=== PATIENT | male | born 1955 | race American Indian/Alaskan Native ===

== ENCOUNTER 2017-03-17 20:08 | Inpatient (IN) | payer MEDICAID ==
[2017-03-17 21:33] LABS: Basophils % (Auto) 0.4 % (0.0-1.8); Eosinophils % (Auto) 0.2 % (0.0-4.3); Hematocrit 37.5 % (35.5-45.6); Hemoglobin 12.2 gm/dl (11.8-15.2); Mean Corpuscular HGB Conc 33 % (32-34); Mean Corpuscular Hemoglobin 26 pg (28-32); Mean Corpuscular Volume 81 fl (84-94); Platelet Count 185 K/mm3 (140-440); Red Blood Count 4.63 M/mm3 (3.65-5.03); Red Cell Distribution Width 14.6 % (13.2-15.2); White Blood Count 9.5 K/mm3 (4.5-11.0)
[2017-03-17] MEDS ORDERED: TYLENOL PO ONE (21:58)
--- NOTE | 2017-03-17 22:00 | Cat Scan Report ---
FINAL REPORT PROCEDURE: CT HEAD/BRAIN WO CON TECHNIQUE: Computerized tomography of the head was performed without contrast material. HISTORY: fall, head injury COMPARISON: No prior studies are available for comparison. FINDINGS: Skull and scalp: Normal. Paranasal sinuses: Normal. Ventricles and subarachnoid spaces: Moderate dilatation. Cerebrum: No evidence of hemorrhage, acute infarction or mass. Atrophy with periventricular and deep white matter diminished densities. Right parietal occipital infarct with encephalomalacia. Cerebellum and brainstem: No evidence of hemorrhage, acute infarction or mass. Atrophy. Vasculature: Normal. Comments: Chronic changes of the right orbit with deformity and calcification. IMPRESSION: Involutional change with atrophy and microangiopathy with right parietal occipital infarct. No hemorrhage
[2017-03-17 22:01] LABS: Creatine Kinase MB 4.6 ng/mL (0.0-4.0)
[2017-03-17 22:02] LABS: Chloride 98.1 mmol/L (98-107); Potassium 3.5 mmol/L (3.6-5.0)
--- NOTE | 2017-03-17 22:03 | Emergency Department Report ---
HPI - General Chief Complaint: Fall Time Seen by Provider: 03/17/17 21:11 - HPI HPI: [place] 25 The patient is a 61-year-old male presented with a chief complaint fall. The patient states this morning at 10:00 he was trying to pick something up off the floor and fell. Patient denies losing consciousness. The patient states he felt too weak diffusely to get up from the ground. Patient denies paresthesias of any type. Patient denies pain of any type. Patient denies shortness of breath, palpitations nausea or vomiting. Patient states his last tetanus vaccination occurred last year. The patient's only complaint currently is feeling "cold." Location: [See above] Duration: Since 10:00 Quality: Weakness Severity: Moderate Modifying factors: [see above] Context: [see above] Mode of transportation: [not driving] ED Past Medical Hx - Past Medical History Previous Medical History?: Yes Hx Hypertension: Yes Hx Diabetes: Yes Hx Pulmonary Embolism: Yes Hx Arthritis: Yes Additional medical history: corneal implant l) - Surgical History Past Surgical History?: Yes Hx Cholecystectomy: Yes Additional Surgical History: corneal implant l) eye, detached retina l) eye - Family History Family history: no significant - Social History Smoking Status: Never Smoker Substance Use Type: Prescribed - Medications Home Medications: Home Medications Medication Instructions Recorded Confirmed Last Taken Type Betoptic S 0.25% 1 drop OS BID 06/21/14 08/26/15 Unknown History Brimonidine Tartrate 0.2% 1 drop OS BID 06/21/14 08/26/15 Unknown History Cyclopentolate 1% 1 drop OS BID 06/21/14 08/26/15 Unknown History Gabapentin 300 mg PO TID 06/21/14 08/26/15 Unknown History Latanoprost 0.005% 1 drop OS DAILY 06/21/14 08/26/15 Unknown History Tobradex 1 drop OS DAILY 06/21/14 08/26/15 Unknown History Chlorthalidone [Thalitone] 25 mg PO QDAY 08/26/15 08/26/15 Unknown History Ergocalciferol [Vitamin D2] 1 cap PO QMONTH 08/26/15 08/26/15 Unknown History Torsemide [Demadex] 20 mg PO QID 08/26/15 08/26/15 Unknown History Aspirin EC [Aspirin Enteric Coated 81 mg PO QDAY #30 tablet. 08/30/15 Unknown Rx TAB] Insulin Glargine [Lantus VIAL] 30 units SUB-Q QHS units 08/30/15 Unknown Rx Insulin Glargine [Lantus VIAL] 70 units SUB-Q QHS #10 ml 08/30/15 Unknown Rx Insulin Glulisine [Apidra] 0 units SUB-Q AC units 08/30/15 Unknown Rx Labetalol [Normodyne TAB] 200 mg PO Q8HR #90 tablet 08/30/15 Unknown Rx Levofloxacin [Levaquin TAB] 500 mg PO Q24HR #5 tablet 08/30/15 Unknown Rx Meclizine [Antivert] 25 mg PO Q8H PRN #14 tablet 08/30/15 Unknown Rx NIFEdipine XL [Procardia Xl] 60 mg PO Q12HR #60 tablet 08/30/15 Unknown Rx Simvastatin [Zocor TAB] 10 mg PO QHS #30 tablet 08/30/15 Unknown Rx hydrALAZINE [Apresoline TAB] 150 mg PO TID #90 tab 08/30/15 Unknown Rx ED Review of Systems ROS: Stated complaint: RT EYE LACERATION Other details as noted in HPI Constitutional: weakness Eyes: denies: eye pain ENT: denies: throat pain Respiratory: denies: shortness of breath Cardiovascular: denies: chest pain Gastrointestinal: denies: abdominal pain, nausea, vomiting Genitourinary: denies: dysuria Musculoskeletal: denies: back pain Neurological: denies: headache Physical Exam - Physical Exam Vital Signs: Vital Signs 03/17/17 03/17/17 20:18 20:52 Temperature 102.0 F H Pulse Rate 105 H 82 Blood Pressure 188/71 Blood Pressure 182/76 [Left] O2 Sat by Pulse 92 Oximetry Physical Exam: GENERAL: The patient is well-developed well-nourished male lying on stretcher not appearing to be in acute distress. [] HEENT: Normocephalic. Abrasion to left forehead and mild abrasion underneath left thigh. Extraocular motions are intact. Subconjunctival hemorrhage of the left eye. Patient has moist mucous membranes. NECK: Supple. Trachea midline CHEST/LUNGS: Clear to auscultation. There is no respiratory distress noted. HEART/CARDIOVASCULAR: Regular. There is no tachycardia. There is no gallop rub or murmur. ABDOMEN: Abdomen is soft, nontender. Patient has normal bowel sounds. There is no abdominal distention. SKIN: There is no rash. There is no edema. There is no diaphoresis. NEURO: The patient is awake, alert, and oriented. The patient is cooperative. The patient has no focal neurologic deficits. The patient has normal speech. Cranial nerves II-12 grossly intact, systems project manager 5+/5 bilaterally. Moves all extremities well MUSCULOSKELETAL: There is no limitation range of motion. ED Course Vital Signs 03/17/17 03/17/17 20:18 20:52 Temperature 102.0 F H Pulse Rate 105 H 82 Blood Pressure 188/71 Blood Pressure 182/76 [Left] O2 Sat by Pulse 92 Oximetry ED Medical Decision Making - Lab Data Result diagrams: 03/17/17 21:17 03/17/17 21:17 - Radiology Data Radiology results: report reviewed (CT head, CT cervical spine), image reviewed (CT head, CT cervical spine, chest x-ray) interpreted by me: Chest x-ray-no focal infiltrate, no pneumothorax FINAL REPORT PROCEDURE: CT HEAD/BRAIN WO CON TECHNIQUE: Computerized tomography of the head was performed without contrast material. HISTORY: fall, head injury COMPARISON: No prior studies are available for comparison. FINDINGS: Skull and scalp: Normal. Paranasal sinuses: Normal. Ventricles and subarachnoid spaces: Moderate dilatation. Cerebrum: No evidence of hemorrhage, acute infarction or mass. Atrophy with periventricular and deep white matter diminished densities. Right parietal occipital infarct with encephalomalacia. Cerebellum and brainstem: No evidence of hemorrhage, acute infarction or mass. Atrophy. Vasculature: Normal. Comments: Chronic changes of the right orbit with deformity and calcification. IMPRESSION: Involutional change with atrophy and microangiopathy with right parietal occipital infarct. No hemorrhage Transcribed By: BRP Dictated By: EDINSON MALONEY MD Electronically Authenticated By: EDINSON MALONEY MD Signed Date/Time: 03/17/171756 DD/ 56 TD/TT: 03/17/171756 FINAL REPORT PROCEDURE: CT CERVICAL SPINE WO CON TECHNIQUE: Computerized tomography of the cervical spine was performed from the skull base to T1 without contrast material. HISTORY: fall, head injury COMPARISON: No prior studies are available for comparison. FINDINGS: Straightening of the cervical lordosis. Alignment is otherwise satisfactory. There is no fracture. The odontoid process is intact. C1-2: Mild spurring.. C2-3: No significant abnormality. C3-4: Disc bulge and spurring toward the right narrowing the right lateral recess. Uncovertebral spurring with right foraminal narrowing.. C4-5: Disc bulge and mild spurring.. C5-6: Disc space narrowing. Disc bulge and spurring. Uncovertebral spurring with bilateral foraminal narrowing.. C6-7: Disc space narrowing. Disc bulge and spurring. Uncovertebral spurring with left greater than right foraminal narrowing.. C7-T1: No significant abnormality. Other: No additional findings. IMPRESSION: Cervical spondylosis. No fracture.. Transcribed By: BRP Dictated By: EDINSON MALONEY MD Electronically Authenticated By: EDINSON MALONEY MD Signed Date/Time: 03/17/171801 DD/ 01 TD/TT: 03/17/171801 - Differential Diagnosis rhabdomyolysis, pneumonia, UTI, Critical care attestation.: If time is entered above; I have spent that time in minutes in the direct care of this critically ill patient, excluding procedure time. ED Disposition Clinical Impression: Rhabdomyolysis, Acute renal insufficiency, Fever Disposition: OP ADMIT IP TO THIS HOSP Is pt being admited?: Yes Does the pt Need Aspirin: No Condition: Fair Referrals: PRIMARY CARE, [Primary Care Provider] - 3-5 Days Time of Disposition: 23:26 (hospitalist notified (Dr Webb))
--- NOTE | 2017-03-17 22:06 | Cat Scan Report ---
FINAL REPORT PROCEDURE: CT CERVICAL SPINE WO CON TECHNIQUE: Computerized tomography of the cervical spine was performed from the skull base to T1 without contrast material. HISTORY: fall, head injury COMPARISON: No prior studies are available for comparison. FINDINGS: Straightening of the cervical lordosis. Alignment is otherwise satisfactory. There is no fracture. The odontoid process is intact. C1-2: Mild spurring.. C2-3: No significant abnormality. C3-4: Disc bulge and spurring toward the right narrowing the right lateral recess. Uncovertebral spurring with right foraminal narrowing.. C4-5: Disc bulge and mild spurring.. C5-6: Disc space narrowing. Disc bulge and spurring. Uncovertebral spurring with bilateral foraminal narrowing.. C6-7: Disc space narrowing. Disc bulge and spurring. Uncovertebral spurring with left greater than right foraminal narrowing.. C7-T1: No significant abnormality. Other: No additional findings. IMPRESSION: Cervical spondylosis. No fracture..
[2017-03-17] MEDS ORDERED: NACL 0.9% 1000 ML 1,000 ML IV ONE (22:10)
--- NOTE | 2017-03-17 22:54 | XRay Report ---
FINAL REPORT PROCEDURE: XR CHEST 1V AP TECHNIQUE: Chest radiograph anteroposterior view. CPT 28810 HISTORY: Fall. Injury. COMPARISON: No prior studies are available for comparison. FINDINGS: Heart: Normal. Mediastinum/Vessels: Normal. Lungs/Pleural space: Normal. Bony thorax: No acute osseous abnormality. Life support devices: None. IMPRESSION: No acute cardiopulmonary abnormality.
[2017-03-17] MEDS ORDERED: NACL 0.9% 1000 ML 1,000 ML IV SCH (23:45)
[2017-03-17] MEDS ORDERED: BRIMONIDINE TARTRATE 0.2% OS SCH (23:45)
--- NOTE | 2017-03-17 23:48 | History and Physical Report ---
History of Present Illness Date of examination: 03/17/17 Date of admission: 03/17/2017 Chief complaint: chief complaint: Fell on the floor around 10 AM and unable to get up. History of present illness: HPI The patient is a 61-year-old male presented with a chief complaint of fall. The patient states this morning at 10:00 he was trying to pick something up off the floor and fell. Patient denies losing consciousness. The patient states he felt too weak diffusely to get up from the ground. Patient denies paresthesias of any type. Patient denies pain of any type. Patient denies shortness of breath, palpitations nausea or vomiting. Patient states his last tetanus vaccination occurred last year. The patient's only complaint currently is feeling "cold." Past Medical History Previous Medical History?: Yes Hx Hypertension: Yes Hx Diabetes: Yes Hx Pulmonary Embolism: Yes Hx Arthritis: Yes Additional medical history: corneal implant l) Surgical History Past Surgical History?: Yes Hx Cholecystectomy: Yes Additional Surgical History: corneal implant l) eye, detached retina l) eye Family History Family history: hypertension Social History Smoking Status: Never Smoker Substance Use Type: Prescribed Medications Home Medications: Home Medications Medication Instructions Recorded Confirmed Last Taken Type Betoptic S 0.25% 1 drop OS BID 06/21/14 08/26/15 Unknown History Brimonidine Tartrate 0.2% 1 drop OS BID 06/21/14 08/26/15 Unknown History Cyclopentolate 1% 1 drop OS BID 06/21/14 08/26/15 Unknown History Gabapentin 300 mg PO TID 06/21/14 08/26/15 Unknown History Latanoprost 0.005% 1 drop OS DAILY 06/21/14 08/26/15 Unknown History Tobradex 1 drop OS DAILY 06/21/14 08/26/15 Unknown History Chlorthalidone [Thalitone] 25 mg PO QDAY 08/26/15 08/26/15 Unknown History Ergocalciferol [Vitamin D2] 1 cap PO QMONTH 08/26/15 08/26/15 Unknown History Torsemide [Demadex] 20 mg PO QID 08/26/15 08/26/15 Unknown History Aspirin EC [Aspirin Enteric Coated 81 mg PO QDAY #30 tablet. 08/30/15 Unknown Rx TAB] Insulin Glargine [Lantus VIAL] 30 units SUB-Q QHS units 08/30/15 Unknown Rx Insulin Glargine [Lantus VIAL] 70 units SUB-Q QHS #10 ml 08/30/15 Unknown Rx Insulin Glulisine [Apidra] 0 units SUB-Q AC units 08/30/15 Unknown Rx Labetalol [Normodyne TAB] 200 mg PO Q8HR #90 tablet 08/30/15 Unknown Rx Levofloxacin [Levaquin TAB] 500 mg PO Q24HR #5 tablet 08/30/15 Unknown Rx Meclizine [Antivert] 25 mg PO Q8H PRN #14 tablet 08/30/15 Unknown Rx NIFEdipine XL [Procardia Xl] 60 mg PO Q12HR #60 tablet 08/30/15 Unknown Rx Simvastatin [Zocor TAB] 10 mg PO QHS #30 tablet 08/30/15 Unknown Rx hydrALAZINE [Apresoline TAB] 150 mg PO TID #90 tab 08/30/15 Unknown Rx Review of Systems Stated complaint: RT EYE LACERATION Other details as noted in HPI Constitutional: weakness Eyes: denies: eye pain ENT: denies: throat pain Respiratory: denies: shortness of breath Cardiovascular: denies: chest pain Gastrointestinal: denies: abdominal pain, nausea, vomiting Genitourinary: denies: dysuria Musculoskeletal: denies: back pain Neurological: denies: headache Medications and Allergies Allergies Allergy/AdvReac Type Severity Reaction Status Date / Time No Known Allergies Allergy Verified 12/11/13 06:05 Home Medications Medication Instructions Recorded Confirmed Last Taken Type Betoptic S 0.25% 1 drop OS BID 06/21/14 03/18/17 Unknown History Brimonidine Tartrate 0.2% 1 drop OS BID 06/21/14 03/18/17 Unknown History Cyclopentolate 1% 1 drop OS BID 06/21/14 03/18/17 Unknown History Gabapentin 300 mg PO TID 06/21/14 03/18/17 Unknown History Latanoprost 0.005% 1 drop OS DAILY 06/21/14 03/18/17 Unknown History Tobradex 1 drop OS DAILY 06/21/14 03/18/17 Unknown History Chlorthalidone [Thalitone] 25 mg PO QDAY 08/26/15 03/18/17 Unknown History Ergocalciferol [Vitamin D2] 1 cap PO QMONTH 08/26/15 03/18/17 Unknown History Torsemide [Demadex] 20 mg PO QID 08/26/15 03/18/17 Unknown History Aspirin EC [Aspirin Enteric Coated 81 mg PO QDAY #30 tablet. 08/30/15 Unknown Rx TAB] Insulin Glargine [Lantus VIAL] 30 units SUB-Q QHS units 08/30/15 03/18/17 Unknown Rx Insulin Glargine [Lantus VIAL] 70 units SUB-Q QHS #10 ml 08/30/15 03/18/17 Unknown Rx Insulin Glulisine [Apidra] 0 units SUB-Q AC units 08/30/15 03/18/17 Unknown Rx Labetalol [Normodyne TAB] 200 mg PO Q8HR #90 tablet 08/30/15 03/18/17 Unknown Rx Levofloxacin [Levaquin TAB] 500 mg PO Q24HR #5 tablet 08/30/15 03/18/17 Unknown Rx Meclizine [Antivert] 25 mg PO Q8H PRN #14 tablet 08/30/15 03/18/17 Unknown Rx NIFEdipine XL [Procardia Xl] 60 mg PO Q12HR #60 tablet 08/30/15 03/18/17 Unknown Rx Simvastatin [Zocor TAB] 10 mg PO QHS #30 tablet 08/30/15 03/18/17 Unknown Rx hydrALAZINE [Apresoline TAB] 150 mg PO TID #90 tab 08/30/15 03/18/17 Unknown Rx Active Meds: Active Medications Sodium Chloride (Nacl 0.9% 1000 Ml) 1,000 mls @ 250 mls/hr IV ONCE ONE Stop: 03/18/17 02:09 Exam - Constitutional Vitals: Temp Pulse Resp BP Pulse Ox 102.0 F H 82 182/76 92 03/17/17 20:18 03/17/17 20:52 03/17/17 20:52 03/17/17 20:18 General appearance: Present: no acute distress, well-nourished - EENT Eyes: Present: PERRL ENT: hearing intact, clear oral mucosa - Neck Neck: Present: supple, normal ROM - Respiratory Respiratory effort: normal Respiratory: bilateral: CTA - Cardiovascular Heart rate: 80 Rhythm: regular Heart Sounds: Present: S1 & S2. Absent: rub, click - Extremities Extremities: no ischemia, pulses intact, pulses symmetrical, No edema Peripheral Pulses: within normal limits - Abdominal General gastrointestinal: Present: soft, non-tender, non-distended, normal bowel sounds Male genitourinary: Present: normal - Rectal Rectal Exam: deferred - Integumentary Integumentary: Present: clear, warm, dry - Musculoskeletal Musculoskeletal: gait normal, strength equal bilaterally - Psychiatric Psychiatric: appropriate mood/affect, intact judgment & insight - Neurologic Neurologic: CNII-XII intact, moves all extremities, other (power is about 4 over 5 in both lower extremities.) - Allied Health Allied health notes reviewed: nursing, case management Results - Labs CBC & Chem 7: 03/18/17 05:59 03/17/17 21:17 Labs: Laboratory Last Values WBC 9.5 K/mm3 (4.5-11.0) 03/17/17 21:17 RBC 4.63 M/mm3 (3.65-5.03) 03/17/17 21:17 Hgb 12.2 gm/dl (11.8-15.2) 03/17/17 21:17 Hct 37.5 % (35.5-45.6) 03/17/17 21:17 MCV 81 fl (84-94) L 03/17/17 21:17 MCH 26 pg (28-32) L 03/17/17 21:17 MCHC 33 % (32-34) 03/17/17 21:17 RDW 14.6 % (13.2-15.2) 03/17/17 21:17 Plt Count 185 K/mm3 (140-440) 03/17/17 21:17 Lymph % (Auto) 8.7 % (13.4-35.0) L 03/17/17 21:17 Tate % (Auto) 9.8 % (0.0-7.3) H 03/17/17 21:17 Eos % (Auto) 0.2 % (0.0-4.3) 03/17/17 21:17 Baso % (Auto) 0.4 % (0.0-1.8) 03/17/17 21: Lymph # 0.8 K/mm3 (1.2-5.4) L 03/17/17 21:17 Tate # 0.9 K/mm3 (0.0-0.8) H 03/17/17 21:17 Eos # 0.0 K/mm3 (0.0-0.4) 03/17/17 21:17 Baso # 0.0 K/mm3 (0.0-0.1) 03/17/17 21:17 Seg Neutrophils % 80.9 % (40.0-70.0) H 03/17/17 21:17 Seg Neutrophils # 7.7 K/mm3 (1.8-7.7) 03/17/17 21:17 Sodium 141 mmol/L (137-145) 03/17/17 21:17 Potassium 3.5 mmol/L (3.6-5.0) L 03/17/17 21:17 Chloride 98.1 mmol/L (98-107) 03/17/17 21:17 Carbon Dioxide 26 mmol/L (22-30) 03/17/17 21:17 Anion Gap 20 mmol/L 03/17/17 21:17 BUN 25 mg/dL (9-20) H 03/17/17 21:17 Creatinine 2.3 mg/dL (0.8-1.5) H 03/17/17 21:17 Estimated GFR 35 ml/min 03/17/17 21:17 BUN/Creatinine Ratio 11 % 03/17/17 21:17 Glucose 163 mg/dL (75-100) H 03/17/17 21:17 Calcium 9.0 mg/dL (8.4-10.2) 03/17/17 21:17 Total Creatine Kinase 1968 units/L (55-170) H 03/17/17 21:17 CK-MB (CK-2) 4.6 ng/mL (0.0-4.0) H 03/17/17 21:17 CK-MB (CK-2) Rel Index 0.2 (0-4) 03/17/17 21:17 Troponin T 0.020 ng/mL (0.00-0.029) 03/17/17 21:17 Short CBC 03/17/17 03/18/17 Range/Units 21:17 05:59 WBC 9.5 7.2 (4.5-11.0) K/mm3 Hgb 12.2 14.5 (11.8-15.2) gm/dl Hct 37.5 43.6 D (35.5-45.6) % Plt Count 185 140 (140-440) K/mm3 BMP 03/17/17 21:17 Sodium 141 Potassium 3.5 L Chloride 98.1 Carbon Dioxide 26 BUN 25 H Creatinine 2.3 H Glucose 163 H Calcium 9.0 Cardiac Enzymes 03/17/17 03/18/17 Range/Units 21:17 00:04 Total Creatine Kinase 1968 H 2563 H (55-170) units/L CK-MB (CK-2) 4.6 H 3.9 (0.0-4.0) ng/mL Troponin T 0.020 0.024 (0.00-0.029) ng/mL - Imaging and Cardiology EKG: report reviewed (EKG normal sinus rhythm heart rate of [address]-T wave changes prolonged QT interval) Assessment and Plan Advance Directives: Yes (full code) VTE prophylaxis?: Chemical Plan of care discussed with patient/family: Yes - Patient Problems (1) Syncope and collapse Current Visit: Yes Status: Acute Plan to address problem: patient not clear about passing out.workup initiated for syncope in the form of (2) Acute kidney injury Current Visit: Yes Status: Acute Plan to address problem: patient has a creatinine of 2.3. Acute tubular necrosis as a possibility. IV reviewed fluids for now.Nephrology consult if necessary. (3) Physical debility Current Visit: Yes Status: Acute Plan to address problem: Secondary to obesity. Patient unable to get up from floor. Patient needs physical therapy.Will initiate physical therapy but he will need physical therapy as outpatient. (4) Rhabdomyolysis Current Visit: Yes Status: Acute Qualifiers: Rhabdomyolysis type: non-traumatic Qualified Code(s): M62.82 - Rhabdomyolysis Plan to address problem: patient has CPK of around 2271-1938. Patient has been lying on the floor for 9 hours. IV fluids for rhabdomyolysis. (5) Morbid obesity Current Visit: Yes Status: Acute Plan to address problem: patient counseled about his obesity. Was unable to get up secondary to his obesity and weakness. Needs to get involved in physical therapy. Neurology consult requested even though I don't think a cerebrovascular accident happened. Power is about 4 over 5 in both lower extremities (6) DVT prophylaxis Current Visit: Yes Status: Acute Plan to address problem: patient initiated on Lovenox 30 mg subcutaneous daily.
[2017-03-17] MEDS ORDERED: ANTIVERT PO PRN (23:51)
[2017-03-17] MEDS ORDERED: TYLENOL PO PRN (23:55)
[2017-03-17] MEDS ORDERED: MILK OF MAGNESIA PO PRN (23:55)
[2017-03-17] MEDS ORDERED: DULCOLAX PR PRN (23:55)
[2017-03-17] MEDS ORDERED: ZOFRAN IV PRN (23:55)
[2017-03-17] MEDS ORDERED: MORPHINE IV PRN (23:57)
[2017-03-17] MEDS ORDERED: PERCOCET 5/325 PO PRN (23:57)
[2017-03-18 00:51] LABS: Creatine Kinase MB 3.9 ng/mL (0.0-4.0)
[2017-03-18] MEDS: CYCLOGYL OS SCH ×3 (02:29→21:45)
[2017-03-18] MEDS: DEMADEX PO SCH ×3 (02:29→21:41)
[2017-03-18] MEDS: BETOPTIC S OS SCH ×3 (02:29→21:45)
[2017-03-18] MEDS: HEPARIN SUB-Q SCH ×4 (02:31→21:44)
[2017-03-18] MEDS: PROCARDIA XL PO SCH ×3 (02:31→21:43)
[2017-03-18] MEDS ORDERED: HEPARIN ONE (02:47)
[2017-03-18 06:32] LABS: Hematocrit 43.6 % (35.5-45.6); Hemoglobin 14.5 gm/dl (11.8-15.2); Mean Corpuscular HGB Conc 33 % (32-34); Mean Corpuscular Hemoglobin 27 pg (28-32); Mean Corpuscular Volume 81 fl (84-94); Platelet Count 140 K/mm3 (140-440); Red Blood Count 5.37 M/mm3 (3.65-5.03); Red Cell Distribution Width 15.3 % (13.2-15.2); White Blood Count 7.2 K/mm3 (4.5-11.0)
[2017-03-18 07:00] LABS: Creatine Kinase MB 3.7 ng/mL (0.0-4.0)
[2017-03-18 07:01] LABS: Albumin 3.6 g/dL (3.9-5); Albumin/Globulin Ratio 1.2 %; Bilirubin,Total 0.3 mg/dL (0.1-1.2); Calcium 8.7 mg/dL (8.4-10.2); Chloride 102.7 mmol/L (98-107); Total Protein 6.7 g/dL (6.3-8.2)
[2017-03-18 07:18] LABS: Potassium 3.9 mmol/L (3.6-5.0)
[2017-03-18] MEDS: NORMODYNE PO SCH ×3 (07:36→21:43)
[2017-03-18] MEDS ORDERED: NACL 0.9% 1000 ML 1,000 ML IV SCH (08:00)
[2017-03-18 08:24] LABS: Basophils % (Manual) 0 % (0.0-1.8); Blastocytes % (Manual) 0 %
[2017-03-18 08:25] LABS: Anisocytosis Few; Diff Status Complete
[2017-03-18] MEDS: NOVOLOG SUB-Q SCH ×4 (09:59→22:52)
[2017-03-18] MEDS: APRESOLINE PO SCH ×3 (10:00→21:42)
[2017-03-18] MEDS: NEURONTIN PO SCH ×3 (10:00→21:41)
[2017-03-18] MEDS: XALATAN 0.005% OS SCH (10:01)
[2017-03-18] MEDS: TOBRADEX OS SCH (10:02)
[2017-03-18] MEDS: THALITONE PO SCH (11:30)
[2017-03-18] MEDS ORDERED: PNEUMOVAX 23 IM ONE (12:00)
[2017-03-18 12:57] LABS: Creatine Kinase MB 2.7 ng/mL (0.0-4.0)
--- NOTE | 2017-03-18 16:44 | Progress Note ---
Assessment and Plan Assessment and plan: (1) Syncope and collapse - CT head normal - Carotid Doppler evidence of present stenosis - Stress test is pending (2) Acute on chronic kidney injury - Due to ATN - Patient is on IV fluids (3) Physical debility - PT consulted (4) Rhabdomyolysis - Continue IV fluids (5) Morbid obesity - Counseled about weight loss (6) DVT prophylaxis patient initiated on Lovenox 30 mg subcutaneous daily. Disposition continue inpatient care History Interval history: Patient was seen and evaluated this morning, no new complaints, no family member was in the room. Hospitalist Physical - Physical exam Narrative exam: Not in cardiopulmonary distress. The patient appeared well nourished and normally developed. Vital signs as documented. Head exam is unremarkable. No scleral icterus . Neck is without jugular venous distension, thyromegaly, or carotid bruits. Lungs are clear to auscultation. Cardiac exam reveals regular rate and Rhythm. First and second heart sounds normal. No murmurs, rubs or gallops. Abdominal exam reveals normal bowel sounds, no masses, no organomegaly and no aortic enlargement. Extremities are nonedematous and both femoral and pedal pulses are normal. BAR STEWARD: Alert and oriented 3. No focal weakness. - Constitutional Vitals: Temp Pulse Resp BP Pulse Ox 99.6 F 80 20 166/70 98 03/18/17 13:23 03/18/17 13:23 03/18/17 13:23 03/18/17 13:23 03/18/17 09:06 General appearance: Present: no acute distress, well-nourished Results - Labs CBC & Chem 7: 03/18/17 05:59 03/18/17 05:59 Labs: Laboratory Last Values WBC 7.2 K/mm3 (4.5-11.0) 03/18/17 05:59 RBC 5.37 M/mm3 (3.65-5.03) H 03/18/17 05:59 Hgb 14.5 gm/dl (11.8-15.2) 03/18/17 05:59 Hct 43.6 % (35.5-45.6) D 03/18/17 05:59 MCV 81 fl (84-94) L 03/18/17 05:59 MCH 27 pg (28-32) L 03/18/17 05:59 MCHC 33 % (32-34) 03/18/17 05:59 RDW 15.3 % (13.2-15.2) H 03/18/17 05:59 Plt Count 140 K/mm3 (140-440) 03/18/17 05:59 Lymph % (Auto) 8.7 % (13.4-35.0) L 03/17/17 21:17 [place] % (Auto) 9.8 % (0.0-7.3) H 03/17/17 21:17 Eos % (Auto) 0.2 % (0.0-4.3) 03/17/17 21:17 Baso % (Auto) 0.4 % (0.0-1.8) 03/17/17 21:17 Lymph # 0.8 K/mm3 (1.2-5.4) L 03/17/17 21:17 [place] # 0.9 K/mm3 (0.0-0.8) H 03/17/17 21:17 Eos # 0.0 K/mm3 (0.0-0.4) 03/17/17 21:17 Baso # 0.0 K/mm3 (0.0-0.1) 03/17/17 21:17 Add Manual Diff Complete 03/18/17 05:59 Total Counted 100 03/18/17 05:59 Seg Neutrophils % 80.9 % (40.0-70.0) H 03/17/17 21:17 Seg Neuts % (Manual) 82.0 % (40.0-70.0) H 03/18/17 05:59 Band Neutrophils % 1.0 % 03/18/17 05:59 Lymphocytes % (Manual) 13.0 % (13.4-35.0) L 03/18/17 05:59 Reactive Lymphs % (Man) 0 % 03/18/17 05:59 Monocytes % (Manual) 2.0 % (0.0-7.3) 03/18/17 05:59 Eosinophils % (Manual) 2.0 % (0.0-4.3) 03/18/17 05:59 Basophils % (Manual) 0 % (0.0-1.8) 03/18/17 05:59 Metamyelocytes % 0 % 03/18/17 05:59 Myelocytes % 0 % 03/18/17 05:59 Promyelocytes % 0 % 03/18/17 05:59 Blast Cells % 0 % 03/18/17 05:59 Nucleated RBC % Not Reportable 03/18/17 05:59 Seg Neutrophils # 7.7 K/mm3 (1.8-7.7) 03/17/17 21:17 Seg Neutrophils # Man 5.9 K/mm3 (1.8-7.7) 03/18/17 05:59 Band Neutrophils # 0.1 K/mm3 03/18/17 05:59 Lymphocytes # (Manual) 0.9 K/mm3 (1.2-5.4) L 03/18/17 05:59 Abs React Lymphs (Man) 0.0 K/mm3 03/18/17 05:59 Monocytes # (Manual) 0.1 K/mm3 (0.0-0.8) 03/18/17 05:59 Eosinophils # (Manual) 0.1 K/mm3 (0.0-0.4) 03/18/17 05:59 Basophils # (Manual) 0.0 K/mm3 (0.0-0.1) 03/18/17 05:59 Metamyelocytes # 0.0 K/mm3 03/18/17 05:59 Myelocytes # 0.0 K/mm3 03/18/17 05:59 Promyelocytes # 0.0 K/mm3 03/18/17 05:59 Blast Cells # 0.0 K/mm3 03/18/17 05:59 WBC Morphology Not Reportable 03/18/17 05:59 Hypersegmented Neuts Not Reportable 03/18/17 05:59 Hyposegmented Neuts Not Reportable 03/18/17 05:59 Hypogranular Neuts Not Reportable 03/18/17 05:59 Smudge Cells Not Reportable 03/18/17 05:59 Toxic Granulation Not Reportable 03/18/17 05:59 Toxic Vacuolation Not Reportable 03/18/17 05:59 Dohle Bodies Not Reportable 03/18/17 05:59 Pelger-Huet Anomaly Not Reportable 03/18/17 05:59 Manoj Rods Not Reportable 03/18/17 05:59 Platelet Estimate Not Reportable 03/18/17 05:59 Clumped Platelets Not Reportable 03/18/17 05:59 Plt Clumps, EDTA Not Reportable 03/18/17 05:59 Large Platelets Not Reportable 03/18/17 05:59 Giant Platelets Not Reportable 03/18/17 05:59 Platelet Satelliting Not Reportable 03/18/17 05:59 Plt Morphology Comment Not Reportable 03/18/17 05:59 RBC Morphology Not Reportable 03/18/17 05:59 Dimorphic RBCs Not Reportable 03/18/17 05:59 Polychromasia Not Reportable 03/18/17 05:59 Hypochromasia Not Reportable 03/18/17 05:59 Poikilocytosis Not Reportable 03/18/17 05:59 Anisocytosis Few 03/18/17 05:59 Microcytosis Not Reportable 03/18/17 05:59 Macrocytosis Not Reportable 03/18/17 05:59 Spherocytes Not Reportable 03/18/17 05:59 Pappenheimer Bodies Not Reportable 03/18/17 05:59 Sickle Cells Not Reportable 03/18/17 05:59 Target Cells Not Reportable 03/18/17 05:59 Tear Drop Cells Not Reportable 03/18/17 05:59 Ovalocytes Not Reportable 03/18/17 05:59 Helmet Cells Not Reportable 03/18/17 05:59 Beltrán-Ringgold Bodies Not Reportable 03/18/17 05:59 Laporte Rings Not Reportable 03/18/17 05:59 Marisol Cells Not Reportable 03/18/17 05:59 Bite Cells Not Reportable 03/18/17 05:59 Crenated Cell Not Reportable 03/18/17 05:59 Elliptocytes Not Reportable 03/18/17 05:59 Acanthocytes (Spur) Not Reportable 03/18/17 05:59 Rouleaux Not Reportable 03/18/17 05:59 Hemoglobin C Crystals Not Reportable 03/18/17 05:59 Schistocytes Not Reportable 03/18/17 05:59 Malaria parasites Not Reportable 03/18/17 05:59 William Bodies Not Reportable 03/18/17 05:59 Hem Pathologist Commnt No 03/18/17 05:59 Sodium 143 mmol/L (137-145) 03/18/17 05:59 Potassium 3.9 mmol/L (3.6-5.0) 03/18/17 05:59 Chloride 102.7 mmol/L (98-107) 03/18/17 05:59 Carbon Dioxide 23 mmol/L (22-30) 03/18/17 05:59 Anion Gap 21 mmol/L 03/18/17 05:59 BUN 22 mg/dL (9-20) H 03/18/17 05:59 Creatinine 2.2 mg/dL (0.8-1.5) H 03/18/17 05:59 Estimated GFR 37 ml/min 03/18/17 05:59 BUN/Creatinine Ratio 10 % 03/18/17 05:59 Glucose 155 mg/dL (75-100) H 03/18/17 05:59 Hemoglobin A1c 7.9 % (4-6) H 03/18/17 00:04 Calcium 8.7 mg/dL (8.4-10.2) 03/18/17 05:59 Total Bilirubin 0.30 mg/dL (0.1-1.2) 03/18/17 05:59 AST 58 units/L (5-40) H 03/18/17 05:59 ALT 20 units/L (7-56) 03/18/17 05:59 Alkaline Phosphatase 68 units/L (35-129) 03/18/17 05:59 Total Creatine Kinase 2655 units/L (55-170) H 03/18/17 12:06 CK-MB (CK-2) 2.7 ng/mL (0.0-4.0) 03/18/17 12:06 CK-MB (CK-2) Rel Index 0.1 (0-4) 03/18/17 12:06 Troponin T 0.020 ng/mL (0.00-0.029) 03/18/17 12:06 Total Protein 6.7 g/dL (6.3-8.2) 03/18/17 05:59 Albumin 3.6 g/dL (3.9-5) L 03/18/17 05:59 Albumin/Globulin Ratio 1.2 % 03/18/17 05:59 Creatinine is 2.2
--- NOTE | 2017-03-18 18:13 | Consultation ---
History of Present Illness Consult date: 03/18/17 Requesting physician: RIVER NARAYAN Reason for Consult: Fell, unable to get up due to weakness. 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 The patient has been ambulating with a walker for weakness and balance for several years before the stroke. He has never been unable to get up from the floor before this according to his . He denies passing out. He denies pain in lower extremities, including muscles. A CT scan of the sandor reveals the previous CVA, no new findings. CPK however is in excess of 1000, and creatinine is rising above 2. it is estimated that he may have been down fro 9 hours or so. also mentions that his memory has been poor of late. Past History Past Medical History: diabetes, stroke Social history: . denies: smoking, alcohol abuse Medications and Allergies Allergies Allergy/AdvReac Type Severity Reaction Status Date / Time No Known Allergies Allergy Verified 12/11/13 06:05 Home Medications Medication Instructions Recorded Confirmed Last Taken Type Betoptic S 0.25% 1 drop OS BID 06/21/14 03/18/17 Unknown History Brimonidine Tartrate 0.2% 1 drop OS BID 06/21/14 03/18/17 Unknown History Cyclopentolate 1% 1 drop OS BID 06/21/14 03/18/17 Unknown History Gabapentin 300 mg PO TID 06/21/14 03/18/17 Unknown History Latanoprost 0.005% 1 drop OS DAILY 06/21/14 03/18/17 Unknown History Tobradex 1 drop OS DAILY 06/21/14 03/18/17 Unknown History Chlorthalidone [Thalitone] 25 mg PO QDAY 08/26/15 03/18/17 Unknown History Ergocalciferol [Vitamin D2] 1 cap PO QMONTH 08/26/15 03/18/17 Unknown History Torsemide [Demadex] 20 mg PO QID 08/26/15 03/18/17 Unknown History Aspirin EC [Aspirin Enteric Coated 81 mg PO QDAY #30 tablet. 08/30/15 Unknown Rx TAB] Insulin Glargine [Lantus VIAL] 30 units SUB-Q QHS units 08/30/15 03/18/17 Unknown Rx Insulin Glargine [Lantus VIAL] 70 units SUB-Q QHS #10 ml 08/30/15 03/18/17 Unknown Rx Insulin Glulisine [Apidra] 0 units SUB-Q AC units 08/30/15 03/18/17 Unknown Rx Labetalol [Normodyne TAB] 200 mg PO Q8HR #90 tablet 08/30/15 03/18/17 Unknown Rx Levofloxacin [Levaquin TAB] 500 mg PO Q24HR #5 tablet 08/30/15 03/18/17 Unknown Rx Meclizine [Antivert] 25 mg PO Q8H PRN #14 tablet 08/30/15 03/18/17 Unknown Rx NIFEdipine XL [Procardia Xl] 60 mg PO Q12HR #60 tablet 08/30/15 03/18/17 Unknown Rx Simvastatin [Zocor TAB] 10 mg PO QHS #30 tablet 08/30/15 03/18/17 Unknown Rx hydrALAZINE [Apresoline TAB] 150 mg PO TID #90 tab 08/30/15 03/18/17 Unknown Rx Active Meds: Active Medications Acetaminophen (Tylenol) 650 mg PO Q4H PRN PRN Reason: Pain MILD(1-3)/Fever >100.5/[place] Betaxolol HCl (Betoptic S) 1 drops OS BID [facility] Last Admin: 03/18/17 11:30 Dose: Not Given Bisacodyl (Dulcolax) 10 mg [place] QDAY PRN PRN Reason: Constipation unrelieved by MOM Chlorthalidone (Thalitone) 25 mg PO QDAY [facility] Last Admin: 03/18/17 11:30 Dose: Not Given Cyclopentolate HCl (Cyclogyl) 1 drops OS BID [facility] Last Admin: 03/18/17 11:30 Dose: Not Given Gabapentin (Neurontin) 300 mg PO TID [facility] Last Admin: 03/18/17 15:09 Dose: 300 mg Heparin Sodium (Porcine) (Heparin) 5,000 unit SUB-Q Q12HR [facility] Last Admin: 03/18/17 10:02 Dose: 5,000 unit Hydralazine HCl (Apresoline) 150 mg PO TID [facility] Last Admin: 03/18/17 15:08 Dose: 150 mg Sodium Chloride (Nacl 0.9% 1000 Ml) 1,000 mls @ 100 mls/hr IV DIRECT [facility] Insulin Aspart (Novolog) 0 units SUB-Q ACHS [facility] PRN Reason: Protocol Last Admin: 03/18/17 12:05 Dose: Not Given Labetalol HCl (Normodyne) 200 mg PO Q8HR [facility] Last Admin: 03/18/17 15:09 Dose: 200 mg Latanoprost (Xalatan 0.005%) 1 drops OS DAILY [facility] Last Admin: 03/18/17 10:01 Dose: 1 drops Magnesium Hydroxide (Milk Of Magnesia) 30 ml PO Q4H PRN PRN Reason: Constipation Meclizine HCl (Antivert) 25 mg PO Q8H PRN PRN Reason: Vertigo Miscellaneous Medication (Brimonidine Tartrate 0.2%) 1 drop OS BID [facility] Last Admin: 03/18/17 02:29 Dose: Not Given Miscellaneous Medication (Insulin Glargine) 70 units SUB-Q QHS [facility] Miscellaneous Medication (Insulin Glargine) 30 units SUB-Q QHS [facility] Morphine Sulfate (Morphine) 4 mg IV Q4H PRN PRN Reason: Pain , Severe (7-10) Nifedipine (Procardia Xl) 60 mg PO Q12HR [facility] Last Admin: 03/18/17 09:59 Dose: 60 mg Ondansetron HCl (Zofran) 4 mg IV Q8H PRN PRN Reason: N/V unrelieved by Reglan Oxycodone/Acetaminophen (Percocet 5/325) 1 tab PO Q6H PRN PRN Reason: Pain, Moderate (4-6) Pravastatin Sodium (Pravachol) 20 mg PO QHS [facility] Tobramycin/Dexamethasone (Tobradex) 1 drops OS DAILY [facility] Last Admin: 03/18/17 10:02 Dose: 1 drops Torsemide (Demadex) 20 mg PO BID [facility] Last Admin: 03/18/17 09:59 Dose: 20 mg Review of Systems Constitutional: weakness Ears, nose, mouth and throat: no tinnitis, no decreased hearing, no sore throat , no headache, no vertigo Cardiovascular: no chest pain, no orthopnea, no palpitations, no edema, no syncope Respiratory: no cough, no shortness of breath, no congestion Gastrointestinal: constipation, no abdominal pain, no nausea, no vomiting, no diarrhea Genitourinary Male: urinary frequency, no dysuria, no incontinence Rectal: no pain, no incontinence Musculoskeletal: no neck stiffness, no neck pain, no low back pain, no muscle cramps, no myalgias Neurological: weakness, memory loss, balance difficulties, gait dysfunction, no head injury, no parathesias, no numbness, no tingling, no seizures, no syncope, no headaches Psychiatric: memory loss Physical Examination - Vital Signs Vital Signs: Vital Signs Temp Pulse BP Pulse Ox 102.0 F H 105 H 188/71 92 03/17/17 20:18 03/17/17 20:18 03/17/17 20:18 03/17/17 20:18 - Constitutional General appearance: comfortable - EENT EENT: Present: PERRL, mucous membranes moist, hearing intact - Respiratory Respiratory: Present: lungs clear, normal breath sounds - Cardiovascular Cardiovascular: Present: regular rate, normal S1, normal S2 Extremities: Present: no peripheral edema bilatateraly, chronic venous stasis change - Gastrointestinal Gastrointestinal: Present: soft, non-tender - Neurologic Cranial nerve examination: EOMI, V1/V2/V3 grossly intact, face symmetric, tongue midline, intact shoulder shrug Speech examination: intact Sensorimotor examination: intact, other (symmetric stength and sensory) Motor examination - right side: 2/5: hip flexors, knee extensors, dorsiflexion, toe extension (EHL), plantarflexion, 4/5: biceps, triceps, wrist flexion, wrist extension Motor examination - left side: 2/5: hip flexors, knee extensors, dorsiflexion, toe extension (EHL), plantarflexion, 4/5: biceps, triceps, wrist flexion, wrist extension Detailed sensory examination: light touch, pain Reflexes: 0: ankle, bicep, knee, tricep - Musculoskeletal Musculoskeletal: Present: no pain - Psychiatric Psychiatric: Present: cooperative Results - Laboratory Findings CBC and BMP: 03/18/17 05:59 03/18/17 05:59 Abnormal Lab Findings: Abnormal Labs 03/17/17 03/17/17 03/18/17 21:17 21:17 00:04 RBC MCV 81 L MCH 26 L RDW Lymph % (Auto) 8.7 L [place] % (Auto) 9.8 H Lymph # 0.8 L [place] # 0.9 H Seg Neutrophils % 80.9 H Seg Neuts % (Manual) Lymphocytes % (Manual) Lymphocytes # (Manual) Potassium 3.5 L BUN 25 H Creatinine 2.3 H Glucose 163 H Hemoglobin A1c 7.9 H AST Total Creatine Kinase 1968 H CK-MB (CK-2) 4.6 H Albumin 03/18/17 03/18/17 03/18/17 00:04 05:59 05:59 RBC 5.37 H MCV 81 L MCH 27 L RDW 15.3 H Lymph % (Auto) [place] % (Auto) Lymph # [place] # Seg Neutrophils % Seg Neuts % (Manual) 82.0 H Lymphocytes % (Manual) 13.0 L Lymphocytes # (Manual) 0.9 L Potassium BUN Creatinine Glucose Hemoglobin A1c AST Total Creatine Kinase 2563 H 2962 H CK-MB (CK-2) Albumin 03/18/17 03/18/17 05:59 12:06 RBC MCV MCH RDW Lymph % (Auto) [place] % (Auto) Lymph # [place] # Seg Neutrophils % Seg Neuts % (Manual) Lymphocytes % (Manual) Lymphocytes # (Manual) Potassium BUN 22 H Creatinine 2.2 H Glucose 155 H Hemoglobin A1c AST 58 H Total Creatine Kinase 2655 H CK-MB (CK-2) Albumin 3.6 L Assessment and Plan 61 year old male with diagnoses of diabetes, insulin dependent, previous CVA, fell on 03/17 and was unable to arise from the floor. He remained there for about 9 hours by report. Developed rhabdomyolysis and ATN. Previous CVA 3 years ago. Doubt that this weakness is of central origin or due to a new cerebrovascular event. 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 Will check other metabolic factors as well. Plan - B-12 level, vitamin D level, thyroid panel. Agree with need for physical therapy. Will follow.
--- NOTE | 2017-03-18 21:46 | Consultation ---
History of Present Illness - Reason for Consult Consult date: 03/18/17 acute renal failure, chronic renal failure Requesting physician: LOUIS OCHOA - History of Present Illness This is a 61 year old AAM with past medical history of hypertension, Type 2 DM, complicated by diabetic retinopathy w/ blind L eye, h/o CVA, CKD stage 3 based on previous chart review, who presented to ER after an episode of fall this AM, when he tried to pick up operator something from the floor and lost his balance. pt states that he did not loose consciousness, he has been ambulating with cane and has residual weakness from previous CVA at baseline and was not able to get up from the ground. Pt was brought in to ER, CT head showed involutional change with atrophy and microangiopathy along with old R parietal occipital infarct. Pt was admitted for further neurological evaluation. Labs showed elevated BUN/ Cr at 25/2.3mg/dl which is marginally elevated from baseline Cr of around 1.8mg/ dl in the past. CPK was also in 2000s. Renal consult requested for management of VAZQUEZ. pt seen and examined at bedside, in no acute distress, is not aware of any previous kidney disease, denies recent NSAIDs use or IV contrast exposure. Past History Past Medical History: diabetes, stroke Social history: . denies: smoking, alcohol abuse Medications and Allergies Allergies Allergy/AdvReac Type Severity Reaction Status Date / Time No Known Allergies Allergy Verified 12/11/13 06:05 Home Medications Medication Instructions Recorded Confirmed Last Taken Type Betoptic S 0.25% 1 drop OS BID 06/21/14 03/18/17 Unknown History Brimonidine Tartrate 0.2% 1 drop OS BID 06/21/14 03/18/17 Unknown History Cyclopentolate 1% 1 drop OS BID 06/21/14 03/18/17 Unknown History Gabapentin 300 mg PO TID 06/21/14 03/18/17 Unknown History Latanoprost 0.005% 1 drop OS DAILY 06/21/14 03/18/17 Unknown History Tobradex 1 drop OS DAILY 06/21/14 03/18/17 Unknown History Chlorthalidone [Thalitone] 25 mg PO QDAY 08/26/15 03/18/17 Unknown History Ergocalciferol [Vitamin D2] 1 cap PO QMONTH 08/26/15 03/18/17 Unknown History Torsemide [Demadex] 20 mg PO QID 08/26/15 03/18/17 Unknown History Aspirin EC [Aspirin Enteric Coated 81 mg PO QDAY #30 tablet. 08/30/15 Unknown Rx TAB] Insulin Glargine [Lantus VIAL] 30 units SUB-Q QHS units 08/30/15 03/18/17 Unknown Rx Insulin Glargine [Lantus VIAL] 70 units SUB-Q QHS #10 ml 08/30/15 03/18/17 Unknown Rx Insulin Glulisine [Apidra] 0 units SUB-Q AC units 08/30/15 03/18/17 Unknown Rx Labetalol [Normodyne TAB] 200 mg PO Q8HR #90 tablet 08/30/15 03/18/17 Unknown Rx Levofloxacin [Levaquin TAB] 500 mg PO Q24HR #5 tablet 08/30/15 03/18/17 Unknown Rx Meclizine [Antivert] 25 mg PO Q8H PRN #14 tablet 08/30/15 03/18/17 Unknown Rx NIFEdipine XL [Procardia Xl] 60 mg PO Q12HR #60 tablet 08/30/15 03/18/17 Unknown Rx Simvastatin [Zocor TAB] 10 mg PO QHS #30 tablet 08/30/15 03/18/17 Unknown Rx hydrALAZINE [Apresoline TAB] 150 mg PO TID #90 tab 08/30/15 03/18/17 Unknown Rx Active Meds: Active Medications Acetaminophen (Tylenol) 650 mg PO Q4H PRN PRN Reason: Pain MILD(1-3)/Fever >100.5/[place] Betaxolol HCl (Betoptic S) 1 drops OS BID [facility] Last Admin: 03/18/17 11:30 Dose: Not Given Bisacodyl (Dulcolax) 10 mg [place] QDAY PRN PRN Reason: Constipation unrelieved by MOM Chlorthalidone (Thalitone) 25 mg PO QDAY [facility] Last Admin: 03/18/17 11:30 Dose: Not Given Cyclopentolate HCl (Cyclogyl) 1 drops OS BID [facility] Last Admin: 03/18/17 11:30 Dose: Not Given Gabapentin (Neurontin) 300 mg PO TID [facility] Last Admin: 03/18/17 21:41 Dose: 300 mg Heparin Sodium (Porcine) (Heparin) 5,000 unit SUB-Q Q12HR [facility] Last Admin: 03/18/17 10:02 Dose: 5,000 unit Hydralazine HCl (Apresoline) 150 mg PO TID [facility] Last Admin: 03/18/17 21:42 Dose: 150 mg Sodium Chloride (Nacl 0.9% 1000 Ml) 1,000 mls @ 100 mls/hr IV DIRECT [facility] Insulin Aspart (Novolog) 0 units SUB-Q ACHS [facility] PRN Reason: Protocol Last Admin: 03/18/17 18:46 Dose: 4 units Labetalol HCl (Normodyne) 200 mg PO Q8HR [facility] Last Admin: 03/18/17 15:09 Dose: 200 mg Latanoprost (Xalatan 0.005%) 1 drops OS DAILY [facility] Last Admin: 03/18/17 10:01 Dose: 1 drops Magnesium Hydroxide (Milk Of Magnesia) 30 ml PO Q4H PRN PRN Reason: Constipation Meclizine HCl (Antivert) 25 mg PO Q8H PRN PRN Reason: Vertigo Miscellaneous Medication (Brimonidine Tartrate 0.2%) 1 drop OS BID [facility] Last Admin: 03/18/17 02:29 Dose: Not Given Miscellaneous Medication (Insulin Glargine) 70 units SUB-Q QHS [facility] Miscellaneous Medication (Insulin Glargine) 30 units SUB-Q QHS [facility] Morphine Sulfate (Morphine) 4 mg IV Q4H PRN PRN Reason: Pain , Severe (7-10) Nifedipine (Procardia Xl) 60 mg PO Q12HR [facility] Last Admin: 03/18/17 21:43 Dose: 60 mg Ondansetron HCl (Zofran) 4 mg IV Q8H PRN PRN Reason: N/V unrelieved by Reglan Oxycodone/Acetaminophen (Percocet 5/325) 1 tab PO Q6H PRN PRN Reason: Pain, Moderate (4-6) Pravastatin Sodium (Pravachol) 20 mg PO QHS [facility] Last Admin: 03/18/17 21:43 Dose: 20 mg Tobramycin/Dexamethasone (Tobradex) 1 drops OS DAILY [facility] Last Admin: 03/18/17 10:02 Dose: 1 drops Torsemide (Demadex) 20 mg PO BID [facility] Last Admin: 03/18/17 21:41 Dose: 20 mg Review of Systems All systems: negative Cardiovascular: dyspnea on exertion Exam - Vital Signs Vital signs: Vital Signs Pulse BP Pulse Ox 104 H 188/71 91 03/17/17 20:15 03/17/17 20:15 03/17/17 20:15 - General Appearance General appearance: well-nourished, appears stated age EENT: ATNC, mucous membranes moist Neck: Present: neck supple Respiratory: Clear to Ascultation Heart: regular, S1S2 Gastrointestinal: Present: normoactive bowel sounds Integumentary: no rash, other (trace edema b/l LE ) Neurologic: no focal deficit, alert and oriented x3, CN 3-12 intact Psychiatric: mood/affect appropriate, cooperative Results - Lab Results 03/18/17 05:59 03/18/17 05:59 Most recent lab results Calcium 8.7 mg/dL (8.4-10.2) 03/18/17 05:59 Laboratory Tests 03/17/17 03/18/17 03/18/17 21:17 00:04 00:04 Hemoglobin A1c 7.9 H Calcium Total Bilirubin AST ALT Total Creatine Kinase 1968 H 2563 H CK-MB (CK-2) 4.6 H Troponin T 0.020 0.024 Total Protein Albumin Albumin/Globulin Ratio 03/18/17 03/18/17 03/18/17 05:59 05:59 12:06 Hemoglobin A1c Calcium 8.7 Total Bilirubin 0.30 AST 58 H ALT 20 Total Creatine Kinase 2655 H CK-MB (CK-2) 3.7 2.7 Troponin T 0.020 Total Protein 6.7 Albumin 3.6 L Albumin/Globulin Ratio 1.2 Assessment and Plan - Patient Problems (1) Acute kidney injury Current Visit: Yes Status: Acute Plan to address problem: VAZQUEZ most likely due to pre-renal azotemia superimposed on CKD, mild rhabdomyolysis may contribute to VAZQUEZ. Pt's underlying CKD likely due to diabetic retinopathy, with presence of diabetic retinopathy IV NS, hold torsemide for now Check urine lytes/ urine protein/cr ratio. cont supportive care for VAZQUEZ, avoid nephrotoxins, NSAIDs, IV contrast Will monitor lytes/renal parameters closley and make further recommendations (2) Syncope and collapse Current Visit: Yes Status: Acute Plan to address problem: CT head shows old infarct, carotid artery US pending. follow neurology recommendations. (3) Type 2 diabetes mellitus Current Visit: No Status: Chronic Qualifiers: Diabetes mellitus complication detail: with chronic kidney disease Chronic kidney disease stage: stage 3 (moderate) Plan to address problem: glucose control as per primaty attending (4) Hypertensive chronic kidney disease with stage 1 through stage 4 chronic kidney disease, or unspecified chronic kidney disease Current Visit: Yes Status: Chronic Plan to address problem: resume home BP meds except torsemide (5) Chronic kidney disease, stage III (moderate) Current Visit: Yes Status: Acute Plan to address problem: likely due to diabetic nephropathy, cont supportive care for CKD. check urine protein/cr ratio
[2017-03-18] MEDS ORDERED: PRAVACHOL PO SCH (22:00)
[2017-03-18] MEDS ORDERED: NON-FORMULARY (Insulin Glargine 30 UNITS) SUB-Q SCH (22:00)
[2017-03-18] MEDS ORDERED: INSULIN GLARGINE 70 UNIT SUB-Q SCH (22:00)
[2017-03-18 23:46] LABS: Bacteria,Urine 1+ /HPF (Negative); Bilirubin,Urine NEG (Negative); Blood,Urine SM (Negative); Ketones,Urine NEG (Negative); Leukocyte Esterase,Urine NEG (Negative); Mucus,Urine FEW /HPF; Nitrite,Urine NEG (Negative); Urobilinogen,Urine < 2.0 mg/dL (<2.0)
[2017-03-18 23:52] LABS: Protein,Urine >500 mg/dL (Negative)
[2017-03-19] MEDS: NORMODYNE PO SCH ×2 (06:07→16:00)
[2017-03-19 07:36] LABS: Chloride 97.1 mmol/L (98-107); Potassium 3.2 mmol/L (3.6-5.0)
[2017-03-19] MEDS ORDERED: LEXISCAN IV ONE ×2 (09:07)
[2017-03-19] MEDS ORDERED: K-DUR PO ONE (09:27)
[2017-03-19] MEDS: NOVOLOG SUB-Q SCH ×3 (11:00→18:03)
[2017-03-19] MEDS: PROCARDIA XL PO SCH (11:01)
[2017-03-19] MEDS: CYCLOGYL OS SCH (11:02)
[2017-03-19] MEDS: XALATAN 0.005% OS SCH (11:02)
[2017-03-19] MEDS: TOBRADEX OS SCH (11:02)
[2017-03-19] MEDS: HEPARIN SUB-Q SCH (11:03)
[2017-03-19] MEDS: BETOPTIC S OS SCH (11:03)
[2017-03-19] MEDS: APRESOLINE PO SCH ×2 (11:05→15:55)
[2017-03-19] MEDS: NEURONTIN PO SCH ×2 (11:07→15:55)
--- NOTE | 2017-03-19 11:09 | Progress Note ---
Assessment and Plan - Patient Problems (1) Acute kidney injury Current Visit: Yes Status: Acute Plan to address problem: VAZQUEZ most likely due to pre-renal azotemia superimposed on CKD, mild rhabdomyolysis may contribute to VAZQUEZ. Pt's underlying CKD likely due to diabetic retinopathy, with presence of diabetic retinopathy and significant proteinuria IV NS, hold torsemide for now cont supportive care for VAZQUEZ, avoid nephrotoxins, NSAIDs, IV contrast otherwise stable for discharge from renal stand point with outpatient CKD f/u. D /w Dr Abarca (2) Syncope and collapse Current Visit: Yes Status: Acute Plan to address problem: CT head shows old infarct, carotid artery US pending. follow neurology recommendations. (3) Type 2 diabetes mellitus Current Visit: No Status: Chronic Qualifiers: Diabetes mellitus complication detail: with chronic kidney disease Chronic kidney disease stage: stage 3 (moderate) Plan to address problem: glucose control as per primaty attending (4) Hypertensive chronic kidney disease with stage 1 through stage 4 chronic kidney disease, or unspecified chronic kidney disease Current Visit: Yes Status: Chronic Plan to address problem: resume home BP meds except torsemide (5) Chronic kidney disease, stage III (moderate) Current Visit: Yes Status: Acute Plan to address problem: likely due to diabetic nephropathy, cont supportive care for CKD. Subjective Date of service: 03/19/17 Principal diagnosis: VAZQUEZ on CKD Interval history: Pt awake, alert in NAD Objective - Vital Signs Vital signs: Vital Signs - 12hr 03/18/17 03/19/17 03/19/17 23:14 01:29 04:46 Temperature 100.6 F H 100.5 F H Pulse Rate 88 85 Respiratory 18 18 20 Rate Blood Pressure 167/71 149/65 Blood Pressure [Left] O2 Sat by Pulse 92 90 Oximetry 03/19/17 03/19/17 03/19/17 06:07 09:08 09:21 Temperature Pulse Rate 85 79 88 Respiratory Rate Blood Pressure 149/65 146/69 144/68 Blood Pressure [Left] O2 Sat by Pulse Oximetry 03/19/17 03/19/17 03/19/17 09:22 09:23 09:24 Temperature Pulse Rate 83 81 85 Respiratory Rate Blood Pressure 146/69 144/68 144/68 Blood Pressure [Left] O2 Sat by Pulse Oximetry 03/19/17 03/19/17 09:25 09:48 Temperature 99.7 F H Pulse Rate 81 80 Respiratory 20 Rate Blood Pressure 156/91 Blood Pressure 141/56 [Left] O2 Sat by Pulse 90 Oximetry - General Appearance General appearance: well-developed, well-nourished, appears stated age EENT: ATNC, PERRL, mucous membranes moist Neck: no JVD Respiratory: Present: Decreased Breath Sounds Cardiology: regular, S1S2 Gastrointestinal: normoactive bowel sounds, obese Integumentary: no rash, other (no edema ) Neurologic: no focal deficit, alert and oriented x3, strength 5/5, CN 3-12 intact Psychiatric: mood/affect appropriate, cooperative - Lab 03/18/17 05:59 03/19/17 06:13 Most recent lab results Calcium 8.0 mg/dL (8.4-10.2) L 03/19/17 06:13 Urine Creatinine 158.7 mg/dL (0.1-20.0) H 03/18/17 23:12 Urine Sodium 22 mmol/L 03/18/17 23:12 Urine Total Protein 502 mg/dL (5-11.8) H 03/18/17 23:12
[2017-03-19] MEDS: THALITONE PO SCH (11:21)
--- NOTE | 2017-03-19 15:53 | Progress Note ---
Assessment and Plan 61 yr. old male who was unable to get up from the floor after a fall. CT scan of brain is stable with previous stroke, no acute findings. 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 Plan - Physical therapy to mobilize pt. Subjective Date of service: 03/19/17 Principal diagnosis: VAZQUEZ on CKD Interval history: This 61 yr. old male with diabetes, obesity, chronic renal disease, hypertension , is being evaluated for weakness as he was unable to get up from the floor on 03/16. CT scan revealed previous CVA in leonora parietal occipital region, no new changes. Objective - Vital Sign Vital Signs - 12hr 03/19/17 03/19/17 03/19/17 04:46 06:07 08:25 Temperature 100.5 F H 98.3 F Pulse Rate 85 85 Respiratory 20 18 Rate Blood Pressure 149/65 149/65 141/56 Blood Pressure [Left] O2 Sat by Pulse 90 Oximetry 03/19/17 03/19/17 03/19/17 09:08 09:21 09:22 Temperature Pulse Rate 79 88 83 Respiratory Rate Blood Pressure 146/69 144/68 146/69 Blood Pressure [Left] O2 Sat by Pulse Oximetry 03/19/17 03/19/17 03/19/17 09:23 09:24 09:25 Temperature Pulse Rate 81 85 81 Respiratory Rate Blood Pressure 144/68 144/68 156/91 Blood Pressure [Left] O2 Sat by Pulse Oximetry 03/19/17 03/19/17 09:48 11:00 Temperature 99.7 F H Pulse Rate 80 76 Respiratory 20 Rate Blood Pressure Blood Pressure 141/56 [Left] O2 Sat by Pulse 90 Oximetry - General Apperance Constitutional: comfortable - EENT EENT: PERRL, mucous membranes moist, hearing intact, vision intact - Respiratory Respiratory: lungs clear, no respiratory distress - Cardiovascular Cardiovascular: regular rate, normal S1, normal S2 Extremities: no peripheral edema bilat, no clubbing, cyanosis, no inflammation, no ischemia or petechiae, chronic venous stasis chg - Gastrointestinal Gastrointestinal: soft, non-tender - Neurologic Cranial nerve examination: PERRL, EOMI, V1/V2/V3 grossly intact, face symmetric , tongue midline, intact shoulder shrug Speech examination: intact Detailed motor examination: grossly full strength in, full strength in all shelia Detailed sensory examination: intact - Psychiatric Psychiatric: mood/affect appropriate, cooperative - Laboratory Findings CBC and BMP: 03/18/17 05:59 03/19/17 06:13 Abnormal Lab Findings: Abnormal Labs 03/17/17 03/17/17 03/18/17 21:17 21:17 00:04 RBC MCV 81 L MCH 26 L RDW Lymph % (Auto) 8.7 L Hardy % (Auto) 9.8 H Lymph # 0.8 L Hardy # 0.9 H Seg Neutrophils % 80.9 H Seg Neuts % (Manual) Lymphocytes % (Manual) Lymphocytes # (Manual) Potassium 3.5 L Chloride BUN 25 H Creatinine 2.3 H Glucose 163 H POC Glucose Hemoglobin A1c 7.9 H Calcium AST Total Creatine Kinase 1968 H CK-MB (CK-2) 4.6 H Albumin Urine Creatinine Urine Total Protein 03/18/17 03/18/17 03/18/17 00:04 05:59 05:59 RBC 5.37 H MCV 81 L MCH 27 L RDW 15.3 H Lymph % (Auto) Hardy % (Auto) Lymph # Hardy # Seg Neutrophils % Seg Neuts % (Manual) 82.0 H Lymphocytes % (Manual) 13.0 L Lymphocytes # (Manual) 0.9 L Potassium Chloride BUN Creatinine Glucose POC Glucose Hemoglobin A1c Calcium AST Total Creatine Kinase 2563 H 2962 H CK-MB (CK-2) Albumin Urine Creatinine Urine Total Protein 03/18/17 03/18/17 03/18/17 05:59 12:06 17:48 RBC MCV MCH RDW Lymph % (Auto) Hardy % (Auto) Lymph # Hardy # Seg Neutrophils % Seg Neuts % (Manual) Lymphocytes % (Manual) Lymphocytes # (Manual) Potassium Chloride BUN 22 H Creatinine 2.2 H Glucose 155 H POC Glucose 289 H Hemoglobin A1c Calcium AST 58 H Total Creatine Kinase 2655 H CK-MB (CK-2) Albumin 3.6 L Urine Creatinine Urine Total Protein 03/18/17 03/18/17 03/19/17 22:33 23:12 06:13 RBC MCV MCH RDW Lymph % (Auto) Hardy % (Auto) Lymph # Hardy # Seg Neutrophils % Seg Neuts % (Manual) Lymphocytes % (Manual) Lymphocytes # (Manual) Potassium 3.2 L Chloride 97.1 L BUN 24 H Creatinine 2.3 H Glucose 242 H POC Glucose 252 H Hemoglobin A1c Calcium 8.0 L AST Total Creatine Kinase 2294 H CK-MB (CK-2) Albumin Urine Creatinine 158.7 H Urine Total Protein 502 H 03/19/17 13:28 RBC MCV MCH RDW Lymph % (Auto) Hardy % (Auto) Lymph # Hardy # Seg Neutrophils % Seg Neuts % (Manual) Lymphocytes % (Manual) Lymphocytes # (Manual) Potassium Chloride BUN Creatinine Glucose POC Glucose 373 H Hemoglobin A1c Calcium AST Total Creatine Kinase CK-MB (CK-2) Albumin Urine Creatinine Urine Total Protein
--- NOTE | 2017-03-19 15:54 | Discharge Summary ---
Providers - Providers Date of Admission: 03/17/17 23:55 Date of discharge: 03/19/17 Attending physician: LOUIS OCHOA MD 03/17/17 23:57 Consult to Physician [CONS] Routine Consulting Provider: LEXIS DAMON Reason For Exam: CVA??? Place consult to:: neuro Notified:: n Time called:: 07:59 Comment:: added to list 03/18/17 08:41 Physical Therapy Evaluation and Treat [CONS] Routine Comment: Reason For Exam: fall/Questionable cva 03/18/17 08:42 Occupational Therapy Evaluate and Treat [CONS] Routine Comment: Reason For Exam: fall/Questionable cva 03/18/17 10:29 Consult to Physician [CONS] Routine Consulting Provider: LAM KURTZ Reason For Exam: Acute on CKD Place consult to:: Nephrology Notified:: office Phone number called:: [phone] Was contact made?: Yes If yes, spoke with:: terry Time called:: 11:59 Primary care physician: SENIOR RELATIONSHIP MANAGER Hospitalization Reason for admission: Frequent fall Condition: Fair Hospital course: Admission HPI The patient is a 61-year-old male presented with a chief complaint of fall. The patient states this morning at 10:00 he was trying to pick something up off the floor and fell. Patient denies losing consciousness. The patient states he felt too weak diffusely to get up from the ground. Patient denies paresthesia of any type. Patient denies pain of any type. Patient denies shortness of breath, palpitations nausea or vomiting. Patient states his last tetanus vaccination occurred last year. The patient's only complaint currently is feeling "cold." Patient was admitted to the floor and worked up for frequent fall and results were unremarkable. CT head showed chronic changes, no acute findings. Stress test was negative for acute ischemia. PT/OT was evaluated him and recommended SNF placement but the patient declined. Patient has bowel incontinent and legally blind. Patient was non-cooprative and unfriendly towards the medical staff. Patient discharged to home with homehealth. Patient' s appropriate medications were refilled. Neurology and Nephrology input appreciated. Disposition: [id number] HOME UNDER [facility] Time spent for discharge: 31 minutes - Discharge Diagnoses (1) Acute kidney injury Status: Acute (2) Chronic kidney disease, stage III (moderate) Status: Acute (3) Morbid obesity Status: Acute (4) Physical debility Status: Acute (5) Rhabdomyolysis Status: Acute Qualifiers: Rhabdomyolysis type: non-traumatic Qualified Code(s): M62.82 - Rhabdomyolysis (6) Severe disability Status: Acute Core Measure Documentation - Palliative Care Palliative Care/ Comfort Measures: Not Applicable - Core Measures Any of the following diagnoses?: none Exam - Physical Exam Narrative exam: Not in cardiopulmonary distress. The patient is obese Vital signs as documented. Head exam is unremarkable. No scleral icterus . Neck is without jugular venous distension, thyromegaly, or carotid bruits. Lungs are clear to auscultation. Cardiac exam reveals regular rate and Rhythm. First and second heart sounds normal. No murmurs, rubs or gallops. Abdominal exam reveals normal bowel sounds, no masses, no organomegaly and no aortic enlargement. Extremities are nonedematous and both femoral and pedal pulses are normal. [employer]: Alert and oriented 3. No focal weakness. - Constitutional Vitals: Temp Pulse Resp BP Pulse Ox 99.7 F H 76 20 141/56 90 03/19/17 09:48 03/19/17 11:00 03/19/17 09:48 03/19/17 09:48 03/19/17 09:48 Plan Activity: fall precautions Weight Bearing Status: Weight Bear as Tolerated Diet: low fat, low cholesterol, low salt, diabetic Additional Instructions: Please follow @[facility] in 2-3 weeks Follow up with: CEICLE GAINES MD [Primary Care Provider] - 3-5 Days SHAHBAZ RAMOS MD [Staff Physician] - 14 Days
[2017-03-19 18:13] VITALS: BP 150/58
--- NOTE | 2017-03-20 00:21 | Treadmill Report ---
INDICATION: Chest pain and shortness of breath. ORDERING PHYSICIAN: Maru Webb MD. FINDINGS: There is no scintigraphic evidence of myocardial ischemia. The left ventricle is normal in size and systolic function. The left ventricular ejection fraction is measured at 56%. Normal wall motion and wall thickening is noted on gated imaging. CONCLUSION: Normal perfusion scan. JOB# [id number] AKD/NTS
--- NOTE | 2017-03-25 13:38 | Vascular Lab Report ---
CAROTID DUPLEX STUDY: RIGHT PSVEDV CCA PROX:1149 CCA DIST:9912 ICA PROX:8214 ICA MID:7516 ICA DIST:[id number] ECA: 1639 VERT: 48 10 LEFT PSVEDV CCA PROX:[id number] CCA DIST:29484 ICA PROX:8110 ICA MID:9216 ICA DIST:9117 ECA: 61231 VERT: 62 12 REASON FOR EXAM: Syncope. COMMENTS ON THE RIGHT: Doppler frequency analysis is consistent with 16 to 49 percent diameter reduction of the internal carotid artery. A small amount of plaque is seen. The common carotid artery is patent. The external carotid artery is patent. The vertebral artery has antegrade flow. COMMENTS ON THE LEFT: Doppler frequency analysis is consistent with 16 to 49 percent diameter reduction of the internal carotid artery. A small amount of plaque is seen there The common carotid artery is patent. The external carotid artery is patent. The vertebral artery has antegrade flow. IMPRESSION: Less than 50% diameter reduction in the internal carotid arteries bilaterally. Consider repeat carotid artery duplex in 12 months.
== END 2017-03-19 20:00 | disposition home health service (06) | DRG 564 ==
LOC: ED 20:08 → 4A 23:55
PROVIDERS: ADMIT Internal Medicine; ATTEND Internal Medicine
PROC: 3E0234Z Introduction of Serum, Toxoid and Vaccine into Muscle, Percutaneous Approach (ICD-10-PCS; principal; 2017-03-18)
DX: T79.6XXA Traumatic ischemia of muscle, initial encounter (principal); N17.0 Acute kidney failure with tubular necrosis; E66.01 Morbid (severe) obesity due to excess calories; Z68.38 Body mass index [BMI] 38.0-38.9, adult; M19.90 Unspecified osteoarthritis, unspecified site; Z86.711 Personal history of pulmonary embolism; Z90.49 Acquired absence of other specified parts of digestive tract; Z82.49 Family history of ischemic heart disease and other diseases of the circulatory system; N18.3 Chronic kidney disease, stage 3 (moderate); I12.9 Hypertensive chronic kidney disease with stage 1 through stage 4 chronic kidney disease, or unspecified chronic kidney disease; E11.22 Type 2 diabetes mellitus with diabetic chronic kidney disease; Z86.73 Personal history of transient ischemic attack (TIA), and cerebral infarction without residual deficits; Z23 Encounter for immunization; E11.40 Type 2 diabetes mellitus with diabetic neuropathy, unspecified; R54 Age-related physical debility; W18.30XA Fall on same level, unspecified, initial encounter
CPT/HCPCS: 36415; 70450; 71010; 72125; 78452; 80048; 80053; 81001; 82306; 82550; 82553; 82570; 82607; 82962; 83036; 84156; 84300; 84439; 84443; 84484; 85007; 85025; 87040; 87086; 90732; 93005; 93010; 93017; 93880; 96360; A9270-GY; A9502; J1644; J1815; J2785; J7030

== ENCOUNTER 2017-07-09 21:44 | Emergency (ER) | payer MEDICAID ==
--- NOTE | 2017-07-09 22:05 | Emergency Department Report ---
ED Chest Pain HPI - General Chief Complaint: Chest Pain Stated Complaint: CP Time Seen by Provider: 07/09/17 21:59 Source: patient, EMS Mode of arrival: Stretcher Limitations: No Limitations - History of Present Illness Initial Comments: Patient is a 62-year-old -Thai male who is presenting with chest pain proximal one hour ago. Patient's states that there at home and patient was at rest and started complaining of left chest pain is radiating to the left shoulder and neck. Patient states this pain has dissipated he does not remember having this pain. Patient does have a history of some cognitive impairment secondary to several strokes and has a history of hypertension diabetes as well. Patient states he feels fine at this time and does not know why he is here in the hospital. Patient is currently denying any chest pain shortness of breath nausea vomiting fevers chills or cough. - Related Data Home Medications Medication Instructions Recorded Confirmed Last Taken Betoptic S 0.25% 1 drop OS BID 06/21/14 03/18/17 Unknown Brimonidine Tartrate 0.2% 1 drop OS BID 06/21/14 03/18/17 Unknown Cyclopentolate 1% 1 drop OS BID 06/21/14 03/18/17 Unknown Gabapentin 300 mg PO TID 06/21/14 03/18/17 Unknown Latanoprost 0.005% 1 drop OS DAILY 06/21/14 03/18/17 Unknown Tobradex 1 drop OS DAILY 06/21/14 03/18/17 Unknown Chlorthalidone [Thalitone] 25 mg PO QDAY 08/26/15 03/18/17 Unknown Ergocalciferol [Vitamin D2] 1 cap PO QMONTH 08/26/15 03/18/17 Unknown Torsemide [Demadex] 20 mg PO QID 08/26/15 03/18/17 Unknown Previous Rx's Medication Instructions Recorded Last Taken Type Aspirin EC [Aspirin Enteric Coated 81 mg PO QDAY #30 tablet. 08/30/15 Unknown Rx TAB] Insulin Glargine [Lantus VIAL] 30 units SUB-Q QHS units 08/30/15 Unknown Rx Insulin Glargine [Lantus VIAL] 70 units SUB-Q QHS #10 ml 08/30/15 Unknown Rx Insulin Glulisine [Apidra] 0 units SUB-Q AC units 08/30/15 Unknown Rx Labetalol [Normodyne TAB] 200 mg PO Q8HR #90 tablet 08/30/15 Unknown Rx Meclizine [Antivert] 25 mg PO Q8H PRN #14 tablet 08/30/15 Unknown Rx NIFEdipine XL [Procardia Xl] 60 mg PO Q12HR #60 tablet 08/30/15 Unknown Rx Simvastatin [Zocor TAB] 10 mg PO QHS #30 tablet 08/30/15 Unknown Rx hydrALAZINE [Apresoline TAB] 150 mg PO TID #90 tab 08/30/15 Unknown Rx Allergies Allergy/AdvReac Type Severity Reaction Status Date / Time No Known Allergies Allergy Verified 12/11/13 06:05 Heart Score - HEART Score History: Slightly suspicious EKG: Normal Age: 45-65 Risk factors: 1-2 risk factors Troponin: < normal limit HEART Score: 2 ED Review of Systems ROS: Stated complaint: CP Other details as noted in HPI Comment: All other systems reviewed and negative ED Past Medical Hx - Past Medical History Hx Hypertension: Yes Hx Heart Attack/AMI: No Hx Congestive Heart Failure: No Hx Diabetes: Yes (type 1) Hx Deep Vein Thrombosis: No Hx Pulmonary Embolism: Yes Hx Arthritis: Yes Hx Asthma: No Hx COPD: No Additional medical history: corneal implant l) - Surgical History Hx Coronary Stent: No Hx Pacemaker: No Hx Internal Defibrillator: No Hx Cholecystectomy: Yes Additional Surgical History: corneal implant l) eye, detached retina l) eye - Social History Smoking Status: Never Smoker Substance Use Type: None - Medications Home Medications: Home Medications Medication Instructions Recorded Confirmed Last Taken Type Betoptic S 0.25% 1 drop OS BID 06/21/14 03/18/17 Unknown History Brimonidine Tartrate 0.2% 1 drop OS BID 06/21/14 03/18/17 Unknown History Cyclopentolate 1% 1 drop OS BID 06/21/14 03/18/17 Unknown History Gabapentin 300 mg PO TID 06/21/14 03/18/17 Unknown History Latanoprost 0.005% 1 drop OS DAILY 06/21/14 03/18/17 Unknown History Tobradex 1 drop OS DAILY 06/21/14 03/18/17 Unknown History Chlorthalidone [Thalitone] 25 mg PO QDAY 08/26/15 03/18/17 Unknown History Ergocalciferol [Vitamin D2] 1 cap PO QMONTH 08/26/15 03/18/17 Unknown History Torsemide [Demadex] 20 mg PO QID 08/26/15 03/18/17 Unknown History Aspirin EC [Aspirin Enteric Coated 81 mg PO QDAY #30 tablet. 08/30/15 Unknown Rx TAB] Insulin Glargine [Lantus VIAL] 30 units SUB-Q QHS units 08/30/15 03/18/17 Unknown Rx Insulin Glargine [Lantus VIAL] 70 units SUB-Q QHS #10 ml 08/30/15 03/18/17 Unknown Rx Insulin Glulisine [Apidra] 0 units SUB-Q AC units 08/30/15 03/18/17 Unknown Rx Labetalol [Normodyne TAB] 200 mg PO Q8HR #90 tablet 08/30/15 03/18/17 Unknown Rx Meclizine [Antivert] 25 mg PO Q8H PRN #14 tablet 08/30/15 03/18/17 Unknown Rx NIFEdipine XL [Procardia Xl] 60 mg PO Q12HR #60 tablet 08/30/15 03/18/17 Unknown Rx Simvastatin [Zocor TAB] 10 mg PO QHS #30 tablet 08/30/15 03/18/17 Unknown Rx hydrALAZINE [Apresoline TAB] 150 mg PO TID #90 tab 08/30/15 03/18/17 Unknown Rx ED Physical Exam - General Limitations: No Limitations General appearance: alert, in no apparent distress - Head Head exam: Present: atraumatic, normocephalic - Eye Eye exam: Present: normal appearance - ENT ENT exam: Present: mucous membranes moist - Neck Neck exam: Present: normal inspection - Respiratory Respiratory exam: Present: normal lung sounds bilaterally. Absent: respiratory distress, wheezes, rales, rhonchi - Cardiovascular Cardiovascular Exam: Present: regular rate, normal rhythm. Absent: systolic murmur, diastolic murmur, rubs, gallop - GI/Abdominal GI/Abdominal exam: Present: soft, normal bowel sounds. Absent: distended, tenderness, guarding, rebound, rigid - Rectal Rectal exam: Present: deferred - Extremities Exam Extremities exam: Present: normal inspection - Back Exam Back exam: Present: normal inspection - Neurological Exam Neurological exam: Present: alert, altered - Psychiatric Psychiatric exam: Present: normal mood, flat affect - Skin Skin exam: Present: warm, dry, intact, normal color. Absent: rash ED Course Vital Signs 07/09/17 07/09/17 07/09/17 21:52 21:59 22:00 Temperature 99.1 F Pulse Rate 72 66 60 Respiratory 15 18 11 L Rate Blood Pressure 152/60 152/60 O2 Sat by Pulse 96 97 96 Oximetry 07/09/17 07/09/17 07/09/17 22:16 22:30 22:46 Temperature Pulse Rate Respiratory 13 Rate Blood Pressure 135/63 144/64 155/78 O2 Sat by Pulse 98 97 95 Oximetry 07/09/17 07/09/17 07/09/17 23:00 23:16 23:30 Temperature Pulse Rate Respiratory Rate Blood Pressure 166/77 168/74 170/78 O2 Sat by Pulse 97 97 97 Oximetry 07/09/17 07/10/17 07/10/17 23:46 00:00 00:15 Temperature Pulse Rate Respiratory Rate Blood Pressure 179/79 183/70 164/77 O2 Sat by Pulse 97 96 95 Oximetry 07/10/17 07/10/17 07/10/17 00:30 00:46 00:50 Temperature Pulse Rate Respiratory 18 Rate Blood Pressure 164/77 179/86 O2 Sat by Pulse 96 97 97 Oximetry 07/10/17 07/10/17 07/10/17 01:00 01:15 01:30 Temperature Pulse Rate Respiratory Rate Blood Pressure 185/88 170/78 164/74 O2 Sat by Pulse 99 95 99 Oximetry ED Medical Decision Making - Lab Data Result diagrams: 07/09/17 22:08 07/09/17 22:08 Lab Results 07/09/17 07/09/17 07/10/17 Range/Units 22:08 22:08 00:59 WBC 5.8 (4.5-11.0) K/mm3 RBC 4.76 (3.65-5.03) M/mm3 Hgb 12.8 (11.8-15.2) gm/dl Hct 38.6 (35.5-45.6) % MCV 81 L (84-94) fl MCH 27 L (28-32) pg MCHC 33 (32-34) % RDW 15.1 (13.2-15.2) % Plt Count 198 (140-440) K/mm3 Lymph % (Auto) 36.6 H (13.4-35.0) % [place] % (Auto) 11.4 H (0.0-7.3) % Eos % (Auto) 3.2 (0.0-4.3) % Baso % (Auto) 0.9 (0.0-1.8) % Lymph # 2.1 (1.2-5.4) K/mm3 [place] # 0.7 (0.0-0.8) K/mm3 Eos # 0.2 (0.0-0.4) K/mm3 Baso # 0.1 (0.0-0.1) K/mm3 Seg Neutrophils % 47.9 (40.0-70.0) % Seg Neutrophils # 2.8 (1.8-7.7) K/mm3 Sodium 142 (137-145) mmol/L Potassium 3.8 (3.6-5.0) mmol/L Chloride 99.2 (98-107) mmol/L Carbon Dioxide 27 (22-30) mmol/L Anion Gap 20 mmol/L BUN 24 H (9-20) mg/dL Creatinine 2.2 H (0.8-1.5) mg/dL Estimated GFR 37 ml/min BUN/Creatinine Ratio 11 % Glucose 72 L (75-100) mg/dL Calcium 9.0 (8.4-10.2) mg/dL Troponin T 0.016 0.012 (0.00-0.029) ng/mL - EKG Data -: EKG Interpreted by Ri - EKG Data Interpretation: other (EKG shows sinus rhythm of 61 for the right normal axis normal intervals and no ST segment elevations or depressions as interpreted at 2237 is normal EKG) - Radiology Data Radiology results: report reviewed No acute process - Medical Decision Making Patient is a 62-year-old male with a history of some cognitive impairment secondary to stroke who presented with chest discomfort before arrival. Patient stated for the last 3 hours while he's been here in the emergency Department that he has not had any chest pain. Patient does not remember having chest pain. Patient's 2 troponins have been negative, as a matter of fact a second troponin was less than the first. Do feel confident the patient is not having an ID at this time. Patient has normal EKG. Patient took his night blood pressure medicines blood pressure has gone down. The patient be discharged home with cardiology follow-up. Critical care attestation.: If time is entered above; I have spent that time in minutes in the direct care of this critically ill patient, excluding procedure time. ED Disposition Clinical Impression: Chest pain Qualifiers: Chest pain type: unspecified Qualified Code(s): R07.9 - Chest pain, unspecified Disposition: TO HOME OR SELFCARE Is pt being admited?: No Does the pt Need Aspirin: No Condition: Stable Instructions: Chest Pain (ED) Referrals: PAUL MARTÍNEZ MD [Staff Physician] - 3-5 Days
[2017-07-09 22:26] LABS: Basophils # (Auto) 0.1 K/mm3 (0.0-0.1); Basophils % (Auto) 0.9 % (0.0-1.8); Eosinophils # (Auto) 0.2 K/mm3 (0.0-0.4); Eosinophils % (Auto) 3.2 % (0.0-4.3); Hematocrit 38.6 % (35.5-45.6); Hemoglobin 12.8 gm/dl (11.8-15.2); Lymphocytes # (Auto) 2.1 K/mm3 (1.2-5.4); Lymphocytes % (Auto) 36.6 % (13.4-35.0); Mean Corpuscular HGB Conc 33 % (32-34); Mean Corpuscular Hemoglobin 27 pg (28-32); Mean Corpuscular Volume 81 fl (84-94); Monocytes # (Auto) 0.7 K/mm3 (0.0-0.8); Monocytes % (Auto) 11.4 % (0.0-7.3); Platelet Count 198 K/mm3 (140-440); Red Blood Count 4.76 M/mm3 (3.65-5.03); Red Cell Distribution Width 15.1 % (13.2-15.2)
--- NOTE | 2017-07-09 23:36 | XRay Report ---
FINAL REPORT PROCEDURE: XR CHEST 1V AP TECHNIQUE: Chest radiograph anteroposterior view. CPT 44613 HISTORY: Chest Pain COMPARISON: 03/17/2017 FINDINGS: Heart: Normal. Mediastinum/Vessels: Normal. Lungs/Pleural space: Normal. Bony thorax: No acute osseous abnormality. Life support devices: None. IMPRESSION: No acute cardiopulmonary abnormality.
[2017-07-10 01:41] VITALS: BP 164/74
== END 2017-07-10 02:05 | disposition home or self-care (01) ==
LOC: ED 21:44
DX: R07.89 Other chest pain (principal); I10 Essential (primary) hypertension; E10.9 Type 1 diabetes mellitus without complications; Z79.82 Long term (current) use of aspirin; Z79.4 Long term (current) use of insulin; Z86.711 Personal history of pulmonary embolism; Z90.49 Acquired absence of other specified parts of digestive tract
CPT/HCPCS: 36415; 71045; 80048; 84484; 85025; 93005; 93010

== ENCOUNTER 2017-08-09 20:57 | Emergency (ER) | payer MEDICAID ==
--- NOTE | 2017-08-09 21:09 | Emergency Department Report ---
ED General Adult HPI - General Stated complaint: GENERAL WEAKNESS Time Seen by Provider: 08/09/17 21:02 Source: patient, family, EMS, old records reviewed Mode of arrival: Stretcher - History of Present Illness Initial comments: Mr. Cardoso is a 62-year-old male presents for generalized weakness. He had a fall yesterday. He developed nondescript chest pain earlier today. No chest pain at this time. Generalized chest pain moderate in severity. He denies shortness of breath. Denies headache. Denies fever. Denies cough. No change in his medications. He arrived per EMS. He has swelling in his left hand and lower extremities. I reviewed most recent discharge summary from February 2017. Patient has history of falls. He has a history of severe disability. Skilled facility placement was recommended. However patient declined at that time. Myocardial perfusion scan performed 03/19/2017. No signs of ischemia at that time. Ejection fraction 56%. Patient is on diuretic therapy. He takes torsemide 20 mg daily. - Related Data Home Medications Medication Instructions Recorded Confirmed Last Taken Betoptic S 0.25% 1 drop OS BID 06/21/14 03/18/17 Unknown Brimonidine Tartrate 0.2% 1 drop OS BID 06/21/14 03/18/17 Unknown Cyclopentolate 1% 1 drop OS BID 06/21/14 03/18/17 Unknown Gabapentin 300 mg PO TID 06/21/14 03/18/17 Unknown Latanoprost 0.005% 1 drop OS DAILY 06/21/14 03/18/17 Unknown Tobradex 1 drop OS DAILY 06/21/14 03/18/17 Unknown Chlorthalidone [Thalitone] 25 mg PO QDAY 08/26/15 03/18/17 Unknown Ergocalciferol [Vitamin D2] 1 cap PO QMONTH 08/26/15 03/18/17 Unknown Torsemide [Demadex] 20 mg PO QID 08/26/15 03/18/17 Unknown Previous Rx's Medication Instructions Recorded Last Taken Type Aspirin EC [Aspirin Enteric Coated 81 mg PO QDAY #30 tablet. 08/30/15 Unknown Rx TAB] Insulin Glargine [Lantus VIAL] 30 units SUB-Q QHS units 08/30/15 Unknown Rx Insulin Glargine [Lantus VIAL] 70 units SUB-Q QHS #10 ml 08/30/15 Unknown Rx Insulin Glulisine [Apidra] 0 units SUB-Q AC units 08/30/15 Unknown Rx Labetalol [Normodyne TAB] 200 mg PO Q8HR #90 tablet 08/30/15 Unknown Rx Meclizine [Antivert] 25 mg PO Q8H PRN #14 tablet 08/30/15 Unknown Rx NIFEdipine XL [Procardia Xl] 60 mg PO Q12HR #60 tablet 08/30/15 Unknown Rx Simvastatin [Zocor TAB] 10 mg PO QHS #30 tablet 08/30/15 Unknown Rx hydrALAZINE [Apresoline TAB] 150 mg PO TID #90 tab 08/30/15 Unknown Rx Allergies Allergy/AdvReac Type Severity Reaction Status Date / Time No Known Allergies Allergy Verified 12/11/13 06:05 ED Review of Systems ROS: Stated complaint: GENERAL WEAKNESS Other details as noted in HPI Comment: All other systems reviewed and negative Constitutional: malaise. denies: fever Respiratory: denies: cough Cardiovascular: denies: chest pain ED Past Medical Hx - Past Medical History Hx Hypertension: Yes Hx Heart Attack/AMI: No Hx Congestive Heart Failure: Yes Hx Diabetes: Yes (type 1) Hx Deep Vein Thrombosis: No Hx Pulmonary Embolism: Yes Hx Arthritis: Yes Hx Asthma: No Hx COPD: No Additional medical history: corneal implant l) - Surgical History Hx Coronary Stent: No Hx Pacemaker: No Hx Internal Defibrillator: No Hx Cholecystectomy: Yes Additional Surgical History: corneal implant l) eye, detached retina l) eye - Social History Smoking Status: Never Smoker Substance Use Type: None - Medications Home Medications: Home Medications Medication Instructions Recorded Confirmed Last Taken Type Betoptic S 0.25% 1 drop OS BID 06/21/14 03/18/17 Unknown History Brimonidine Tartrate 0.2% 1 drop OS BID 06/21/14 03/18/17 Unknown History Cyclopentolate 1% 1 drop OS BID 06/21/14 03/18/17 Unknown History Gabapentin 300 mg PO TID 06/21/14 03/18/17 Unknown History Latanoprost 0.005% 1 drop OS DAILY 06/21/14 03/18/17 Unknown History Tobradex 1 drop OS DAILY 06/21/14 03/18/17 Unknown History Chlorthalidone [Thalitone] 25 mg PO QDAY 08/26/15 03/18/17 Unknown History Ergocalciferol [Vitamin D2] 1 cap PO QMONTH 08/26/15 03/18/17 Unknown History Torsemide [Demadex] 20 mg PO QID 08/26/15 03/18/17 Unknown History Aspirin EC [Aspirin Enteric Coated 81 mg PO QDAY #30 tablet. 08/30/15 Unknown Rx TAB] Insulin Glargine [Lantus VIAL] 30 units SUB-Q QHS units 08/30/15 03/18/17 Unknown Rx Insulin Glargine [Lantus VIAL] 70 units SUB-Q QHS #10 ml 08/30/15 03/18/17 Unknown Rx Insulin Glulisine [Apidra] 0 units SUB-Q AC units 08/30/15 03/18/17 Unknown Rx Labetalol [Normodyne TAB] 200 mg PO Q8HR #90 tablet 08/30/15 03/18/17 Unknown Rx Meclizine [Antivert] 25 mg PO Q8H PRN #14 tablet 08/30/15 03/18/17 Unknown Rx NIFEdipine XL [Procardia Xl] 60 mg PO Q12HR #60 tablet 08/30/15 03/18/17 Unknown Rx Simvastatin [Zocor TAB] 10 mg PO QHS #30 tablet 08/30/15 03/18/17 Unknown Rx hydrALAZINE [Apresoline TAB] 150 mg PO TID #90 tab 08/30/15 03/18/17 Unknown Rx ED Physical Exam - General Limitations: No Limitations General appearance: alert, in no apparent distress - Head Head exam: Present: atraumatic, normocephalic - Eye Eye exam: Present: other (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 Absent: tenderness, meningismus - Respiratory Respiratory exam: Present: normal lung sounds bilaterally. Absent: respiratory distress, wheezes, rales, rhonchi - Cardiovascular Cardiovascular Exam: Present: regular rate, normal rhythm, normal heart sounds. Absent: bradycardia, tachycardia, irregular rhythm - GI/Abdominal GI/Abdominal exam: Present: soft. Absent: distended, tenderness, guarding, rebound, rigid - Extremities Exam Extremities exam: Present: other (3+ pitting edema in lower extremities, mild edema left hand without else deformity) - Psychiatric Psychiatric exam: Present: normal mood, flat affect - Skin Skin exam: Present: warm, dry ED Course Vital Signs 08/09/17 08/09/17 08/09/17 21:11 21:22 21:30 Temperature 98.3 F Pulse Rate 76 71 Respiratory 14 15 Rate Blood Pressure 175/76 168/75 O2 Sat by Pulse 97 98 97 Oximetry 08/09/17 08/09/17 08/09/17 21:47 22:00 22:30 Temperature Pulse Rate 71 66 62 Respiratory 12 14 Rate Blood Pressure 168/75 179/77 179/77 O2 Sat by Pulse 97 100 Oximetry 08/09/17 08/09/17 23:00 23:30 Temperature Pulse Rate 56 L 57 L Respiratory 13 11 L Rate Blood Pressure 175/73 164/75 O2 Sat by Pulse 97 97 Oximetry ED Medical Decision Making - Lab Data Result diagrams: 08/09/17 21:19 08/09/17 21:19 - EKG Data -: EKG Interpreted by Me - EKG Data 08/09/17 22:25 NSR nl rate nl axis nl intervals no ST-T signs of ischemia no ST elevation rate 70 bpm Time obtained 2145 - Medical Decision Making Mr. Cardoso presents with generalized weakness and nondescript chest pain atypical for ACS. Recent cardiac evaluation 5 months ago negative for ischemia. He has chronic kidney disease. No signs of ACS. Normal EKG. Normal troponin. Discharged home in stable condition. Critical care attestation.: If time is entered above; I have spent that time in minutes in the direct care of this critically ill patient, excluding procedure time. ED Disposition Clinical Impression: Chest pain, Generalized weakness Disposition: DC-01 TO HOME OR SELFCARE Is pt being admited?: No Does the pt Need Aspirin: No Condition: Stable Instructions: Chest Pain (ED) Additional Instructions: Please see her primary doctor this upcoming week. Time of Disposition: 00:07
[2017-08-09] MEDS ORDERED: BABY ASPIRIN PO ONE (21:11)
[2017-08-09] MEDS ORDERED: CATAPRES PO ONE (21:15)
[2017-08-09 21:48] LABS: Hemoglobin 12.3 gm/dl (11.8-15.2); Red Blood Count 4.54 M/mm3 (3.65-5.03)
[2017-08-09 21:49] LABS: Basophils # (Auto) 0.1 K/mm3 (0.0-0.1); Eosinophils # (Auto) 0.3 K/mm3 (0.0-0.4); Eosinophils % (Auto) 4.6 % (0.0-4.3); Lymphocytes % (Auto) 28.2 % (13.4-35.0); Mean Corpuscular HGB Conc 33 % (32-34); Mean Corpuscular Hemoglobin 27 pg (28-32); Mean Corpuscular Volume 82 fl (84-94); Monocytes # (Auto) 0.6 K/mm3 (0.0-0.8); Platelet Count 218 K/mm3 (140-440)
[2017-08-09 21:54] LABS: Alanine Aminotransferase 13 units/L (7-56); Albumin 4.1 g/dL (3.9-5); BUN/Creatinine Ratio 9; Blood Urea Nitrogen 20 mg/dL (9-20); Calcium 8.9 mg/dL (8.4-10.2); Hemolysis Index 5
--- NOTE | 2017-08-09 22:13 | XRay Report ---
FINAL REPORT PROCEDURE: XR CHEST 1V AP TECHNIQUE: Chest radiograph anteroposterior view. CPT 03869 HISTORY: Chest Pain COMPARISON: 07/09/2017 FINDINGS: Heart: Normal. Mediastinum/Vessels: Normal. Lungs/Pleural space: Normal. Bony thorax: No acute osseous abnormality. Life support devices: None. IMPRESSION: No acute cardiopulmonary abnormality.
[2017-08-10 00:50] VITALS: BP 172/77
== END 2017-08-10 00:35 | disposition home or self-care (01) ==
LOC: ED 20:57
DX: R53.1 Weakness (principal); R07.89 Other chest pain; I11.0 Hypertensive heart disease with heart failure; I50.9 Heart failure, unspecified; M19.90 Unspecified osteoarthritis, unspecified site; E10.8 Type 1 diabetes mellitus with unspecified complications; Z79.4 Long term (current) use of insulin; Z90.49 Acquired absence of other specified parts of digestive tract; Z86.711 Personal history of pulmonary embolism; Z96.1 Presence of intraocular lens; Z94.7 Corneal transplant status
CPT/HCPCS: 36415; 71045; 80053; 83880; 84484; 85025

== ENCOUNTER 2017-08-10 01:38 | Emergency (ER) | payer MEDICAID ==
[2017-08-10 01:48] VITALS: BP 165/67
== END 2017-08-10 03:30 | disposition left against medical advice (07) ==
LOC: ED 01:38
DX: R53.1 Weakness (principal); Z53.21 Procedure and treatment not carried out due to patient leaving prior to being seen by health care provider

== ENCOUNTER 2017-08-10 18:47 | Emergency (ER) | payer MEDICAID ==
[2017-08-10 19:26] LABS: Basophils % (Auto) 0.8 % (0.0-1.8); Eosinophils # (Auto) 0.3 K/mm3 (0.0-0.4); Eosinophils % (Auto) 4.3 % (0.0-4.3); Hematocrit 38.3 % (35.5-45.6); Hemoglobin 12.4 gm/dl (11.8-15.2); Lymphocytes % (Auto) 30.8 % (13.4-35.0); Mean Corpuscular HGB Conc 32 % (32-34); Mean Corpuscular Hemoglobin 27 pg (28-32); Mean Corpuscular Volume 82 fl (84-94); Mean Platelet Volume 9.4 fl (6-12); Monocytes # (Auto) 0.6 K/mm3 (0.0-0.8); Monocytes % (Auto) 9.6 % (0.0-7.3); Platelet Count 216 K/mm3 (140-440); Red Blood Count 4.67 M/mm3 (3.65-5.03); Red Cell Distribution Width 15.4 % (13.2-15.2)
[2017-08-10 19:27] LABS: Basophils # (Auto) 0.1 K/mm3 (0.0-0.1)
[2017-08-10 19:35] LABS: Calcium 9.3 mg/dL (8.4-10.2)
--- NOTE | 2017-08-10 20:28 | Cat Scan Report ---
FINAL REPORT EXAM: CT HEAD/BRAIN WO CON HISTORY: weakness COMPARISON: CT of the head from February 2017. TECHNIQUE: Axial images obtained skull base through vertex. FINDINGS: No acute intracranial hemorrhage, midline shift or pathologic extra axial fluid collection. [id number] volume loss with compensatory dilatation of the ventricular system and chronic small vessel ischemic disease. Remote right occipital lobe infarct measuring 3.2 x 1.5 centimeters in axial dimension. Otherwise, cantu-white differentiation preserved. Calvarium grossly intact. Mild mucosal thickening the paranasal sinuses. Mastoid air cells are clear. Deformity calcification right ocular globe stable from prior study which may relate to sequelae of prior inflammation or trauma. Prominent calcified plaque at the carotid siphons. IMPRESSION: No grossly acute intracranial abnormality. Mild to moderate volume loss and moderate chronic small vessel ischemic disease. Findings are grossly stable from prior study. Remote right occipital lobe infarct.
--- NOTE | 2017-08-10 21:07 | Emergency Department Report ---
ED General Adult HPI - General Chief complaint: Neuro Symptoms/Deficit Stated complaint: POSS STROKE Time Seen by Provider: 08/10/17 19:07 Source: patient Mode of arrival: Wheelchair Limitations: No Limitations - History of Present Illness Initial comments: 62-year-old male with a past medical history previous CVA with residual right leg weakness, CHF, diabetes, and chronic renal insufficiency presents to the hospital complaints of left-sided neck pain and shoulder tightness prior to arrival. Patient's is at the bedside. Patient has some cognitive impairment secondary to previous CVAs therefore provided majority of history of present illness. Patient had a fall on the and was evaluated here on . Apparently that time he complained of some chest pain and generalized weakness. Patient had a negative ED workup in as a negative Lexiscan stress test in February 2017 on record. At the time correction admission was advised the patient declined. Patient received some physical therapy after discharge from February but that has since been discontinued. Patient apparently feeling really shaky with "spaghetti legs" since the . Patient typically ambulates with a walker for the past 2 days has been too unsteady. He also has had intermittent tremors of his arms. brought pt back to the ED today because he complained of left-sided neck , shoulder tightness, and pain with swallowing. She was concerned for stroke or heart attack. Patient denies any pain at this time. Patient also has left hand swelling for the past 2 days but denies any pain. Patient has chronic bilateral lower extremity edema in the right typically greater than the left. During February admission patient also received a neurology evaluation which showed a chronic right occipital infarct. 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 Severity scale (0 -10): 10 - Related Data Home Medications Medication Instructions Recorded Confirmed Last Taken Betoptic S 0.25% 1 drop OS BID 06/21/14 03/18/17 Unknown Brimonidine Tartrate 0.2% 1 drop OS BID 06/21/14 03/18/17 Unknown Cyclopentolate 1% 1 drop OS BID 06/21/14 03/18/17 Unknown Gabapentin 300 mg PO TID 06/21/14 03/18/17 Unknown Latanoprost 0.005% 1 drop OS DAILY 06/21/14 03/18/17 Unknown Tobradex 1 drop OS DAILY 06/21/14 03/18/17 Unknown Chlorthalidone [Thalitone] 25 mg PO QDAY 08/26/15 03/18/17 Unknown Ergocalciferol [Vitamin D2] 1 cap PO QMONTH 08/26/15 03/18/17 Unknown Torsemide [Demadex] 20 mg PO QID 08/26/15 03/18/17 Unknown Previous Rx's Medication Instructions Recorded Last Taken Type Aspirin EC [Aspirin Enteric Coated 81 mg PO QDAY #30 tablet.dr 08/30/15 Unknown Rx TAB] Insulin Glargine [Lantus VIAL] 30 units SUB-Q QHS units 08/30/15 Unknown Rx Insulin Glargine [Lantus VIAL] 70 units SUB-Q QHS #10 ml 08/30/15 Unknown Rx Insulin Glulisine [Apidra] 0 units SUB-Q AC units 08/30/15 Unknown Rx Labetalol [Normodyne TAB] 200 mg PO Q8HR #90 tablet 08/30/15 Unknown Rx Meclizine [Antivert] 25 mg PO Q8H PRN #14 tablet 08/30/15 Unknown Rx NIFEdipine XL [Procardia Xl] 60 mg PO Q12HR #60 tablet 08/30/15 Unknown Rx Simvastatin [Zocor TAB] 10 mg PO QHS #30 tablet 08/30/15 Unknown Rx hydrALAZINE [Apresoline TAB] 150 mg PO TID #90 tab 08/30/15 Unknown Rx Allergies Allergy/AdvReac Type Severity Reaction Status Date / Time No Known Allergies Allergy Verified 12/11/13 06:05 ED Review of Systems ROS: Stated complaint: POSS STROKE Other details as noted in HPI Comment: All other systems reviewed and negative ED Past Medical Hx - Past Medical History Hx Hypertension: Yes Hx CVA: Yes (residual right sided weakness in RLL) Hx Heart Attack/AMI: No Hx Congestive Heart Failure: Yes Hx Diabetes: Yes (type 1) Hx Deep Vein Thrombosis: No Hx Pulmonary Embolism: Yes (?) Hx Renal Disease: Yes (stage 3) Hx Arthritis: Yes Hx Asthma: No Hx COPD: No Additional medical history: corneal implant l) - Surgical History Hx Coronary Stent: No Hx Pacemaker: No Hx Internal Defibrillator: No Hx Cholecystectomy: Yes Additional Surgical History: corneal implant l) eye, detached retina l) eye - Social History Smoking Status: Never Smoker Substance Use Type: None - Medications Home Medications: Home Medications Medication Instructions Recorded Confirmed Last Taken Type Betoptic S 0.25% 1 drop OS BID 06/21/14 03/18/17 Unknown History Brimonidine Tartrate 0.2% 1 drop OS BID 06/21/14 03/18/17 Unknown History Cyclopentolate 1% 1 drop OS BID 06/21/14 03/18/17 Unknown History Gabapentin 300 mg PO TID 06/21/14 03/18/17 Unknown History Latanoprost 0.005% 1 drop OS DAILY 06/21/14 03/18/17 Unknown History Tobradex 1 drop OS DAILY 06/21/14 03/18/17 Unknown History Chlorthalidone [Thalitone] 25 mg PO QDAY 08/26/15 03/18/17 Unknown History Ergocalciferol [Vitamin D2] 1 cap PO QMONTH 08/26/15 03/18/17 Unknown History Torsemide [Demadex] 20 mg PO QID 08/26/15 03/18/17 Unknown History Aspirin EC [Aspirin Enteric Coated 81 mg PO QDAY #30 tablet. 08/30/15 Unknown Rx TAB] Insulin Glargine [Lantus VIAL] 30 units SUB-Q QHS units 08/30/15 03/18/17 Unknown Rx Insulin Glargine [Lantus VIAL] 70 units SUB-Q QHS #10 ml 08/30/15 03/18/17 Unknown Rx Insulin Glulisine [Apidra] 0 units SUB-Q AC units 08/30/15 03/18/17 Unknown Rx Labetalol [Normodyne TAB] 200 mg PO Q8HR #90 tablet 08/30/15 03/18/17 Unknown Rx Meclizine [Antivert] 25 mg PO Q8H PRN #14 tablet 08/30/15 03/18/17 Unknown Rx NIFEdipine XL [Procardia Xl] 60 mg PO Q12HR #60 tablet 08/30/15 03/18/17 Unknown Rx Simvastatin [Zocor TAB] 10 mg PO QHS #30 tablet 08/30/15 03/18/17 Unknown Rx hydrALAZINE [Apresoline TAB] 150 mg PO TID #90 tab 08/30/15 03/18/17 Unknown Rx ED Physical Exam - General Limitations: No Limitations - Other Other exam information: General: No limitations, patient is alert in no acute distress Head exam: Atraumatic, normocephalic Eyes exam: Opacified right cornea, blind, extraocular movements intact ENT: Moist mucous membrane, normal oropharynx Neck exam: Normal inspection, full range of motion, no meningismus, no midline or lateral neck tenderness. Respiratory exam: Clear to auscultation bilateral, no wheezes, rales, crackles Cardiovascular: Normal rate and rhythm, normal heart sounds Abdomen: Soft, nondistended, and nontender, with normal bowel sounds, no rebound, or guarding Extremity: Full range of motion. Diffuse right hand swelling without warmth, tenderness, or erythema. Back: Normal Inspection, full range of motion, no tenderness Neurologic: Alert, oriented x3, cranial nerves intact, thing and nothing of function intact, sensation intact, 4/5 right lower extremity strength compared to the left 5/5. Psychiatric: normal affect, normal mood Skin: Warm, dry, intact ED Course Vital Signs 08/10/17 08/10/17 08/10/17 18:56 20:46 20:58 Temperature 97.8 F Pulse Rate 66 Respiratory 16 18 Rate Blood Pressure 166/74 183/78 O2 Sat by Pulse 98 Oximetry 08/10/17 08/10/17 08/10/17 20:59 21:00 21:15 Temperature 98 F Pulse Rate 64 70 Respiratory 11 L 12 Rate Blood Pressure 174/81 185/79 O2 Sat by Pulse 96 97 Oximetry 08/10/17 08/10/17 08/10/17 21:30 21:45 22:00 Temperature Pulse Rate 61 71 64 Respiratory 9 L 16 15 Rate Blood Pressure 183/78 182/75 182/75 O2 Sat by Pulse 96 97 96 Oximetry ED Medical Decision Making - Lab Data Result diagrams: 08/10/17 19:13 08/10/17 19:13 Lab Results 08/10/17 08/10/17 08/10/17 Range/Units 19:13 19:13 19:13 WBC 6.6 (4.5-11.0) K/mm3 RBC 4.67 (3.65-5.03) M/mm3 Hgb 12.4 (11.8-15.2) gm/dl Hct 38.3 (35.5-45.6) % MCV 82 L (84-94) fl MCH 27 L (28-32) pg MCHC 32 (32-34) % RDW 15.4 H (13.2-15.2) % Plt Count 216 (140-440) K/mm3 Lymph % (Auto) 30.8 (13.4-35.0) % [place] % (Auto) 9.6 H (0.0-7.3) % Eos % (Auto) 4.3 (0.0-4.3) % Baso % (Auto) 0.8 (0.0-1.8) % Lymph # 2.0 (1.2-5.4) K/mm3 [place] # 0.6 (0.0-0.8) K/mm3 Eos # 0.3 (0.0-0.4) K/mm3 Baso # 0.1 (0.0-0.1) K/mm3 Seg Neutrophils % 54.5 (40.0-70.0) % Seg Neutrophils # 3.6 (1.8-7.7) K/mm3 Sodium 140 (137-145) mmol/L Potassium 3.5 L (3.6-5.0) mmol/L Chloride 99.7 (98-107) mmol/L Carbon Dioxide 25 (22-30) mmol/L Anion Gap 19 mmol/L BUN 22 H (9-20) mg/dL Creatinine 2.1 H (0.8-1.5) mg/dL Estimated GFR 39 ml/min BUN/Creatinine Ratio 10 % Glucose 140 H (75-100) mg/dL Calcium 9.3 (8.4-10.2) mg/dL Magnesium 2.20 (1.7-2.3) mg/dL Troponin T 0.015 (0.00-0.029) ng/mL NT-Pro-B Natriuret Pep 640.3 (0-900) pg/mL Urine Color (Yellow) Urine Turbidity (Clear) Urine pH (5.0-7.0) Ur Specific [place] (1.003-1.030) Urine Protein (Negative) mg/dL Urine Glucose (UA) (Negative) mg/dL Urine Ketones (Negative) mg/dL Urine Blood (Negative) Urine Nitrite (Negative) Urine Bilirubin (Negative) Urine Urobilinogen (<2.0) mg/dL Ur Leukocyte Esterase (Negative) Urine WBC (Auto) (0.0-6.0) /HPF Urine RBC (Auto) (0.0-6.0) /HPF Urine Mucus /HPF 08/10/17 Range/Units 21:12 WBC (4.5-11.0) K/mm3 RBC (3.65-5.03) M/mm3 Hgb (11.8-15.2) gm/dl Hct (35.5-45.6) % MCV (84-94) fl MCH (28-32) pg MCHC (32-34) % RDW (13.2-15.2) % Plt Count (140-440) K/mm3 Lymph % (Auto) (13.4-35.0) % [place] % (Auto) (0.0-7.3) % Eos % (Auto) (0.0-4.3) % Baso % (Auto) (0.0-1.8) % Lymph # (1.2-5.4) K/mm3 [place] # (0.0-0.8) K/mm3 Eos # (0.0-0.4) K/mm3 Baso # (0.0-0.1) K/mm3 Seg Neutrophils % (40.0-70.0) % Seg Neutrophils # (1.8-7.7) K/mm3 Sodium (137-145) mmol/L Potassium (3.6-5.0) mmol/L Chloride (98-107) mmol/L Carbon Dioxide (22-30) mmol/L Anion Gap mmol/L BUN (9-20) mg/dL Creatinine (0.8-1.5) mg/dL Estimated GFR ml/min BUN/Creatinine Ratio % Glucose (75-100) mg/dL Calcium (8.4-10.2) mg/dL Magnesium (1.7-2.3) mg/dL Troponin T (0.00-0.029) ng/mL NT-Pro-B Natriuret Pep (0-900) pg/mL Urine Color Yellow (Yellow) Urine Turbidity Clear (Clear) Urine pH 5.0 (5.0-7.0) Ur Specific [place] 1.017 (1.003-1.030) Urine Protein >500 (Negative) mg/dL Urine Glucose (UA) 150 (Negative) mg/dL Urine Ketones Neg (Negative) mg/dL Urine Blood Sm (Negative) Urine Nitrite Neg (Negative) Urine Bilirubin Neg (Negative) Urine Urobilinogen < 2.0 (<2.0) mg/dL Ur Leukocyte Esterase Neg (Negative) Urine WBC (Auto) < 1.0 (0.0-6.0) /HPF Urine RBC (Auto) 4.0 (0.0-6.0) /HPF Urine Mucus Few /HPF - EKG Data -: EKG Interpreted by Me EKG shows normal: sinus rhythm, axis (qrs 31), intervals (pr 230), QRS complexes (qrsd 105), ST-T waves (flat t waves) Rate: normal (65) - EKG Data When compared to previous EKG there are: no significant change - Medical Decision Making Patient remains asymptomatic in the ED. February neurology consultation with medicine at patient has diabetic myopathy/neuropathy benefit from physical therapy. Patient's generalized weakness seems to be chronic and progressively worsening. I recommended outpatient follow-up with primary care doctor for physical therapy. Patient is asymptomatic and denied pain repeatedly in the ED. He will be discharged home to follow up with primary care doctor. Patient' s previous elevated CK has since resolved. - Differential Diagnosis infection, Parkinson's/movement disorder, CVA, electrolyte disturbance Critical Care Time: No Critical care attestation.: If time is entered above; I have spent that time in minutes in the direct care of this critically ill patient, excluding procedure time. ED Disposition Clinical Impression: Chronic kidney disease, stage III (moderate), Unsteady gait, Risk for falls, Swelling of left hand Disposition: DC-01 TO HOME OR SELFCARE Is pt being admited?: No Does the pt Need Aspirin: No Condition: Stable Instructions: Fall Prevention for Older Adults (ED), Chronic Kidney Disease (ED ) Additional Instructions: Follow up with you doctor in 2-3 days. Discuss reinitiating physical therapy for home with your doctor. Return if symptoms worsen as indicated by your discharge instructions Referrals: AUGUSTUS MEYERS MD [Primary Care Provider] - 3-5 Days Time of Disposition: 22:46 - Assessment Assessment Interval: Baseline - Level of Consciousness 1a. Level of Consciousness: alert - LOC Questions 1b. LOC Questions: answers correctly - LOC Command 1c. LOC Commands: performs tasks correctly - Visual 3. Visual: no visual loss - Facial Palsy 4. Facial Palsy: normal symmetrical movement - Motor Arm 5b. Motor Arm Right: no drift 5a. Motor Arm Left: no drift - Motor Leg 6a. Motor Leg Left: no drift 6b. Motor Leg Right: drift - Limb Ataxia 7. Limb Ataxia: absent - Sensory 8. Sensory: normal - Best Language 9. Best Language: no aphasia - Dysarthria 10. Dysarthria: normal - Extinction and Inattention 11. Extinction/Inattention: no abnormality
[2017-08-10 21:31] LABS: Bilirubin,Urine NEG (Negative); Blood,Urine SM (Negative); Color,Urine Yellow (Yellow); Mucus,Urine FEW /HPF; Urobilinogen,Urine < 2.0 mg/dL (<2.0); WBC,Urine < 1.0 /HPF (0.0-6.0)
[2017-08-10 21:34] LABS: Protein,Urine >500 mg/dL (Negative)
[2017-08-10] MEDS ORDERED: POTASSIUM CHLORIDE PO ONE (21:54)
[2017-08-10 22:11] VITALS: BP 182/75
== END 2017-08-10 23:17 | disposition home or self-care (01) ==
LOC: ED 18:47
DX: N18.3 Chronic kidney disease, stage 3 (moderate) (principal); E10.22 Type 1 diabetes mellitus with diabetic chronic kidney disease; I13.0 Hypertensive heart and chronic kidney disease with heart failure and stage 1 through stage 4 chronic kidney disease, or unspecified chronic kidney disease; I50.9 Heart failure, unspecified; M19.90 Unspecified osteoarthritis, unspecified site; M54.2 Cervicalgia; R07.0 Pain in throat; Z86.711 Personal history of pulmonary embolism; Z90.49 Acquired absence of other specified parts of digestive tract; Z86.73 Personal history of transient ischemic attack (TIA), and cerebral infarction without residual deficits
CPT/HCPCS: 36415; 70450; 80048; 81001; 82550; 83735; 83880; 84484; 85025; 93005; 93010

== ENCOUNTER 2017-09-16 13:41 | Emergency (ER) | payer MEDICAID ==
[2017-09-16] MEDS ORDERED: TYLENOL PO ONE (18:03)
--- NOTE | 2017-09-16 18:03 | Emergency Department Report ---
<TONJA LEMUS - Last Filed: 09/16/17 20:16> ED Lower Extremity HPI - General Chief Complaint: Extremity Injury, Lower Stated Complaint: KNEE PAIN Time Seen by Provider: 09/16/17 17:15 Source: patient Mode of arrival: Wheelchair Limitations: No Limitations - History of Present Illness Initial Comments: 62-year-old male past medical history CVA congestive heart failure diabetes hypertension history of PE stage IIIc KD corneal implants multiple surgeries presents with complaint of left-sided knee pain status post mechanical fall while at home. Patient states he tripped over something while walking last night. As per and patient he experienced abrasion to left side of the left knee and has knee pain while walking. Patient is awake and alert. She stand but states it is slightly painful when he flexes and extends his left knee. MD Complaint: knee injury, leg injury -: Last night Injury: Knee: Left Type of Injury: blunt Place: home Severity: moderate Severity scale (0 -10): 6 Worsens With: weight bearing, palpation Associated Symptoms: able to partially bear weight - Related Data Home Medications Medication Instructions Recorded Confirmed Last Taken Betoptic S 0.25% 1 drop OS BID 06/21/14 03/18/17 Unknown Brimonidine Tartrate 0.2% 1 drop OS BID 06/21/14 03/18/17 Unknown Cyclopentolate 1% 1 drop OS BID 06/21/14 03/18/17 Unknown Gabapentin 300 mg PO TID 06/21/14 03/18/17 Unknown Latanoprost 0.005% 1 drop OS DAILY 06/21/14 03/18/17 Unknown Tobradex 1 drop OS DAILY 06/21/14 03/18/17 Unknown Chlorthalidone [Thalitone] 25 mg PO QDAY 08/26/15 03/18/17 Unknown Ergocalciferol [Vitamin D2] 1 cap PO QMONTH 08/26/15 03/18/17 Unknown Torsemide [Demadex] 20 mg PO QID 08/26/15 03/18/17 Unknown Previous Rx's Medication Instructions Recorded Last Taken Type Aspirin EC [Aspirin Enteric Coated 81 mg PO QDAY #30 tablet. 08/30/15 Unknown Rx TAB] Insulin Glargine [Lantus VIAL] 30 units SUB-Q QHS units 08/30/15 Unknown Rx Insulin Glargine [Lantus VIAL] 70 units SUB-Q QHS #10 ml 08/30/15 Unknown Rx Insulin Glulisine [Apidra] 0 units SUB-Q AC units 08/30/15 Unknown Rx Labetalol [Normodyne TAB] 200 mg PO Q8HR #90 tablet 08/30/15 Unknown Rx Meclizine [Antivert] 25 mg PO Q8H PRN #14 tablet 08/30/15 Unknown Rx NIFEdipine XL [Procardia Xl] 60 mg PO Q12HR #60 tablet 08/30/15 Unknown Rx Simvastatin [Zocor TAB] 10 mg PO QHS #30 tablet 08/30/15 Unknown Rx hydrALAZINE [Apresoline TAB] 150 mg PO TID #90 tab 08/30/15 Unknown Rx Acetaminophen [Tylenol Arthritis] 650 mg PO Q8H #30 tablet.er 09/16/17 Unknown Rx Cephalexin [Keflex] 500 mg PO BID #14 capsule 09/16/17 Unknown Rx Allergies Allergy/AdvReac Type Severity Reaction Status Date / Time No Known Allergies Allergy Verified 09/16/17 13:48 ED Review of Systems ROS: Stated complaint: KNEE PAIN Other details as noted in HPI Constitutional: denies: chills, fever Eyes: denies: eye pain, eye discharge, vision change ENT: denies: ear pain, throat pain Respiratory: denies: cough, shortness of breath, wheezing Cardiovascular: denies: chest pain, palpitations Endocrine: no symptoms reported Gastrointestinal: denies: abdominal pain, nausea, diarrhea Genitourinary: denies: urgency, dysuria Musculoskeletal: as per HPI (left-sided knee pain and abrasion to left side me) . 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 denies: headache, weakness, paresthesias Psychiatric: denies: anxiety, depression Hematological/Lymphatic: denies: easy bleeding, easy bruising ED Past Medical Hx - Past Medical History Hx Hypertension: Yes Hx CVA: Yes (residual right sided weakness in RLL) Hx Heart Attack/AMI: No Hx Congestive Heart Failure: Yes Hx Diabetes: Yes (type 1) Hx Deep Vein Thrombosis: No Hx Pulmonary Embolism: Yes (?) Hx Renal Disease: Yes (stage 3) Hx Arthritis: Yes Hx Asthma: No Hx COPD: No Additional medical history: corneal implant l) - Surgical History Hx Coronary Stent: No Hx Pacemaker: No Hx Internal Defibrillator: No Hx Cholecystectomy: Yes Additional Surgical History: corneal implant l) eye, detached retina l) eye - Social History Smoking Status: Never Smoker Substance Use Type: None - Medications Home Medications: Home Medications Medication Instructions Recorded Confirmed Last Taken Type Betoptic S 0.25% 1 drop OS BID 06/21/14 03/18/17 Unknown History Brimonidine Tartrate 0.2% 1 drop OS BID 06/21/14 03/18/17 Unknown History Cyclopentolate 1% 1 drop OS BID 06/21/14 03/18/17 Unknown History Gabapentin 300 mg PO TID 06/21/14 03/18/17 Unknown History Latanoprost 0.005% 1 drop OS DAILY 06/21/14 03/18/17 Unknown History Tobradex 1 drop OS DAILY 06/21/14 03/18/17 Unknown History Chlorthalidone [Thalitone] 25 mg PO QDAY 08/26/15 03/18/17 Unknown History Ergocalciferol [Vitamin D2] 1 cap PO QMONTH 08/26/15 03/18/17 Unknown History Torsemide [Demadex] 20 mg PO QID 08/26/15 03/18/17 Unknown History Aspirin EC [Aspirin Enteric Coated 81 mg PO QDAY #30 tablet. 08/30/15 Unknown Rx TAB] Insulin Glargine [Lantus VIAL] 30 units SUB-Q QHS units 08/30/15 03/18/17 Unknown Rx Insulin Glargine [Lantus VIAL] 70 units SUB-Q QHS #10 ml 08/30/15 03/18/17 Unknown Rx Insulin Glulisine [Apidra] 0 units SUB-Q AC units 08/30/15 03/18/17 Unknown Rx Labetalol [Normodyne TAB] 200 mg PO Q8HR #90 tablet 08/30/15 03/18/17 Unknown Rx Meclizine [Antivert] 25 mg PO Q8H PRN #14 tablet 08/30/15 03/18/17 Unknown Rx NIFEdipine XL [Procardia Xl] 60 mg PO Q12HR #60 tablet 08/30/15 03/18/17 Unknown Rx Simvastatin [Zocor TAB] 10 mg PO QHS #30 tablet 08/30/15 03/18/17 Unknown Rx hydrALAZINE [Apresoline TAB] 150 mg PO TID #90 tab 08/30/15 03/18/17 Unknown Rx Acetaminophen [Tylenol Arthritis] 650 mg PO Q8H #30 tablet.er 09/16/17 Unknown Rx Cephalexin [Keflex] 500 mg PO BID #14 capsule 09/16/17 Unknown Rx ED Physical Exam - General Limitations: No Limitations General appearance: alert, in no apparent distress - Head Head exam: Present: atraumatic, normocephalic - Eye Eye exam: Present: normal appearance - ENT ENT exam: Present: mucous membranes moist - Neck Neck exam: Present: normal inspection - Respiratory Respiratory exam: Present: normal lung sounds bilaterally. Absent: respiratory distress - Cardiovascular Cardiovascular Exam: Present: regular rate, normal rhythm. Absent: systolic murmur, diastolic murmur, rubs, gallop - GI/Abdominal GI/Abdominal exam: Present: soft, normal bowel sounds - Rectal Rectal exam: Present: deferred - Extremities Exam Extremities exam: Present: normal inspection - Back Exam Back exam: Present: normal inspection - Neurological Exam Neurological exam: Present: alert, oriented X3, CN II-XII intact, abnormal gait (antalgic gait) - Expanded Neurological Exam Expanded Motor strength exam: RUE: 3, LUE: 5, RLE: 4, LLE: 5 Best Eye Response (Neeru): (4) open spontaneously Best Motor Response (Neeru): (6) obeys commands Best Verbal Response (Neeru): (5) oriented [place] Total: 15 - Psychiatric Psychiatric exam: Present: normal affect, normal mood - Skin Skin exam: Present: warm, dry, intact, normal color. Absent: rash - Expanded Skin Exam Expanded Type of lesion: Present: abrasion Distribution of rash: LLE Description of rash: Present: tenderness, erythematous 1 - Circular abrasion approximately 5-6 cm in diameter here no deep laceration or puncture wound visible. ED Course Vital Signs 09/16/17 13:48 Temperature 98.5 F Pulse Rate 76 Respiratory 20 Rate Blood Pressure 127/88 O2 Sat by Pulse 98 Oximetry ED Lower Extremity MDM - Medical Decision Making A/P: Left knee pain, fall related injury, abrasion 1-tetanus vaccine updated as of 2017 as per patient and his at bedside 2-course of Keflex 3-x-ray shows 4- Critical care attestation.: If time is entered above; I have spent that time in minutes in the direct care of this critically ill patient, excluding procedure time. ED Disposition Clinical Impression: Fall Qualifiers: Encounter type: initial encounter Qualified Code(s): W19.XXXA - Unspecified fall, initial encounter Knee pain, left Qualifiers: Chronicity: acute Qualified Code(s): M25.562 - Pain in left knee Abrasion of leg, left Qualifiers: Encounter type: initial encounter Qualified Code(s): S80.812A - Abrasion, left lower leg, initial encounter Disposition: TO HOME OR SELFCARE Condition: Stable Additional Instructions: Please complete antibiotics as prescribed. You can take pain medication as needed for pain. Please follow-up with her primary care provider if her symptoms persist or gets worse. Prescriptions: Acetaminophen [Tylenol Arthritis] 650 mg PO Q8H #30 tablet.er Cephalexin [Keflex] 500 mg PO BID #14 capsule Referrals: PRIMARY CARE, [Primary Care Provider] - 3-5 Days Forms: Work/School Release Form(ED) <ESPERANZA VALERIO - Last Filed: 09/16/17 21:23> ED Lower Extremity MDM - Radiology Data Radiology results: report reviewed, image reviewed FINAL REPORT PROCEDURE: XR KNEE 3V LT TECHNIQUE: Left knee, three views HISTORY: left knee pain s/p fall COMPARISON: No prior studies are available for comparison. FINDINGS: No acute fracture or dislocation is seen. No focal osseous lesions are seen. No joint effusion. IMPRESSION: No acute fracture or dislocation is identified Transcribed By: [facility] Dictated By: LIBORIO BURTON M.D. Electronically Authenticated By: LIBORIO BURTON M.D. Signed Date/Time: 09/16/172048 ED Disposition Is pt being admited?: No Does the pt Need Aspirin: No
[2017-09-16] MEDS ORDERED: KEFLEX PO ONE (18:04)
--- NOTE | 2017-09-16 20:54 | XRay Report ---
FINAL REPORT PROCEDURE: XR KNEE 3V LT TECHNIQUE: Left knee, three views HISTORY: left knee pain s/p fall COMPARISON: No prior studies are available for comparison. FINDINGS: No acute fracture or dislocation is seen. No focal osseous lesions are seen. No joint effusion. IMPRESSION: No acute fracture or dislocation is identified
[2017-09-16] MEDS ORDERED: CATAPRES ONE (21:53)
[2017-09-16] MEDS ORDERED: CATAPRES PO ONE (21:55)
[2017-09-16 22:18] VITALS: BP 200/86
[2017-09-16 22:32] LABS: Bilirubin,Urine NEG (Negative); Blood,Urine SM (Negative); Color,Urine Yellow (Yellow); Urobilinogen,Urine < 2.0 mg/dL (<2.0)
[2017-09-16 22:34] LABS: Protein,Urine >500 mg/dL (Negative)
== END 2017-09-17 00:15 | disposition home or self-care (01) ==
LOC: ED 13:41
DX: S80.812A Abrasion, left lower leg, initial encounter (principal); M25.562 Pain in left knee; E10.9 Type 1 diabetes mellitus without complications; I50.9 Heart failure, unspecified; M19.90 Unspecified osteoarthritis, unspecified site; I12.9 Hypertensive chronic kidney disease with stage 1 through stage 4 chronic kidney disease, or unspecified chronic kidney disease; N18.3 Chronic kidney disease, stage 3 (moderate); Z90.49 Acquired absence of other specified parts of digestive tract; Z79.82 Long term (current) use of aspirin; Z79.4 Long term (current) use of insulin; W18.30XA Fall on same level, unspecified, initial encounter; Y93.89 Activity, other specified; Y92.89 Other specified places as the place of occurrence of the external cause; Y99.8 Other external cause status
CPT/HCPCS: 81001

== ENCOUNTER 2018-04-06 20:05 | Inpatient (IN) | payer MEDICAID ==
[2018-04-06 21:46] LABS: Basophils # (Auto) 0.1 K/mm3 (0.0-0.1); Basophils % (Auto) 0.4 % (0.0-1.8); Eosinophils # (Auto) 0.1 K/mm3 (0.0-0.4); Eosinophils % (Auto) 0.4 % (0.0-4.3); Hemoglobin 11.7 gm/dl (11.8-15.2); Lymphocytes # (Auto) 1.5 K/mm3 (1.2-5.4); Lymphocytes % (Auto) 9.2 % (13.4-35.0); Mean Corpuscular HGB Conc 33 % (32-34); Mean Corpuscular Volume 83 fl (84-94); Monocytes # (Auto) 1.1 K/mm3 (0.0-0.8); Monocytes % (Auto) 6.4 % (0.0-7.3); Platelet Count 269 K/mm3 (140-440); Red Blood Count 4.34 M/mm3 (3.65-5.03); Red Cell Distribution Width 13.8 % (13.2-15.2)
[2018-04-06 22:04] LABS: Albumin 3.7 g/dL (3.9-5); Calcium 9.5 mg/dL (8.4-10.2)
[2018-04-06] MEDS ORDERED: VANCOMYCIN/NS 1 GM/250 ML 1 GM/250 ML BAG IV ONE (22:18)
[2018-04-06] MEDS ORDERED: APRESOLINE IV ONE (22:18)
[2018-04-06] MEDS ORDERED: VANCOMYCIN 2,000 MG in NACL 0.9% 500 ML 500 ML IV ONE (22:30)
--- NOTE | 2018-04-06 23:06 | Emergency Department Report ---
HPI - General Chief Complaint: Wound/Laceration Time Seen by Provider: 04/06/18 20:18 - HPI HPI: 62-year-old -[place] male presents to the emergency department via EMS from home with complaint of bilateral lower extremity swelling, redness and poss ible infection. He has a past medical history of arthritis, CHF, previous CVA with right-sided deficits, insulin-dependent diabetes, hypertension, chronic kidney disease. It does not sound like he has taken anything for his symptoms prior to arrival. No recent travel or sick contacts at home. ED Past Medical Hx - Past Medical History Previous Medical History?: Yes Hx Hypertension: Yes Hx CVA: Yes (residual right sided weakness in RLL) Hx Heart Attack/AMI: No Hx Congestive Heart Failure: Yes Hx Diabetes: Yes (type 1) Hx Deep Vein Thrombosis: No Hx Pulmonary Embolism: Yes (?) Hx Renal Disease: Yes (stage 3) Hx Arthritis: Yes Hx Asthma: No Hx COPD: No Additional medical history: corneal implant l) - Surgical History Past Surgical History?: Yes Hx Coronary Stent: No Hx Pacemaker: No Hx Internal Defibrillator: No Hx Cholecystectomy: Yes Additional Surgical History: corneal implant l) eye, detached retina l) eye - Social History Smoking Status: Unknown if ever smoked Substance Use Type: None - Medications Home Medications: Home Medications Medication Instructions Recorded Confirmed Last Taken Type Betoptic S 0.25% 1 drop OS BID 06/21/14 03/18/17 Unknown History Brimonidine Tartrate 0.2% 1 drop OS BID 06/21/14 03/18/17 Unknown History Cyclopentolate 1% 1 drop OS BID 06/21/14 03/18/17 Unknown History Gabapentin 300 mg PO TID 06/21/14 03/18/17 Unknown History Latanoprost 0.005% 1 drop OS DAILY 06/21/14 03/18/17 Unknown History Tobradex 1 drop OS DAILY 06/21/14 03/18/17 Unknown History Chlorthalidone [Thalitone] 25 mg PO QDAY 08/26/15 03/18/17 Unknown History Ergocalciferol [Vitamin D2] 1 cap PO QMONTH 08/26/15 03/18/17 Unknown History Torsemide [Demadex] 20 mg PO QID 08/26/15 03/18/17 Unknown History Aspirin EC [Aspirin Enteric Coated 81 mg PO QDAY #30 tablet. 08/30/15 03/18/17 Unknown Rx TAB] Insulin Glargine [Lantus VIAL] 30 units SUB-Q QHS units 08/30/15 03/18/17 Unknown Rx Insulin Glargine [Lantus VIAL] 70 units SUB-Q QHS #10 ml 08/30/15 03/18/17 Unknown Rx Insulin Glulisine [Apidra] 0 units SUB-Q AC units 08/30/15 03/18/17 Unknown Rx Labetalol [Normodyne TAB] 200 mg PO Q8HR #90 tablet 08/30/15 03/18/17 Unknown Rx Meclizine [Antivert] 25 mg PO Q8H PRN #14 tablet 08/30/15 03/18/17 Unknown Rx NIFEdipine XL [Procardia Xl] 60 mg PO Q12HR #60 tablet 08/30/15 03/18/17 Unknown Rx Simvastatin [Zocor TAB] 10 mg PO QHS #30 tablet 08/30/15 03/18/17 Unknown Rx hydrALAZINE [Apresoline TAB] 150 mg PO TID #90 tab 08/30/15 03/18/17 Unknown Rx Acetaminophen [Tylenol Arthritis] 650 mg PO Q8H #30 tablet.er 09/16/17 Unknown Rx Cephalexin [Keflex] 500 mg PO BID #14 capsule 09/16/17 Unknown Rx ED Review of Systems ROS: Stated complaint: EDEMA Other details as noted in HPI Comment: All other systems reviewed and negative Constitutional: denies: chills, fever Eyes: denies: eye pain, vision change ENT: denies: ear pain, throat pain Respiratory: denies: cough, shortness of breath Cardiovascular: edema. denies: chest pain, palpitations Gastrointestinal: denies: abdominal pain, vomiting Genitourinary: denies: dysuria, discharge Musculoskeletal: myalgia. denies: back pain Skin: lesions, change in color Neurological: denies: headache, numbness Physical Exam - Physical Exam Vital Signs: Vital Signs 04/06/18 04/06/18 04/06/18 20:32 20:33 20:45 Temperature 100.7 F H Pulse Rate 93 H Respiratory 18 Rate Blood Pressure 159/77 191/154 O2 Sat by Pulse 95 96 94 Oximetry 04/06/18 04/06/18 04/06/18 21:00 21:15 21:31 Temperature Pulse Rate Respiratory Rate Blood Pressure 208/67 208/67 208/67 O2 Sat by Pulse 94 92 97 Oximetry 04/06/18 21:34 Temperature Pulse Rate Respiratory 18 Rate Blood Pressure O2 Sat by Pulse Oximetry Physical Exam: GENERAL: The patient is well-developed well-nourished. HEENT: Normocephalic. Atraumatic. Patient has moist mucous membranes. EYES: Extraocular motions are intact. Pupils are equal and reactive to light bilaterally. NECK: Supple. Trachea is midline. CHEST/LUNGS: Clear to auscultation. There is no respiratory distress noted. HEART/CARDIOVASCULAR: Regular. There is no tachycardia. There is no obvious murmur. ABDOMEN: Abdomen is soft, nontender. Patient has normal bowel sounds. There is no abdominal distention. SKIN: Bilateral lower extremity pitting edema. There is some erythema, cracking of the skin, mild oozing of serous fluid to the bilateral anterior tib-fib concerning for cellulitis. NEURO: The patient is awake, alert, and cooperative. Follows commands. MUSCULOSKELETAL: There is no tenderness or deformity. There is no evidence of acute injury. ED Course Vital Signs 04/06/18 04/06/18 04/06/18 20:32 20:33 20:45 Temperature 100.7 F H Pulse Rate 93 H Respiratory 18 Rate Blood Pressure 159/77 191/154 O2 Sat by Pulse 95 96 94 Oximetry 04/06/18 04/06/18 04/06/18 21:00 21:15 21:31 Temperature Pulse Rate Respiratory Rate Blood Pressure 208/67 208/67 208/67 O2 Sat by Pulse 94 92 97 Oximetry 04/06/18 21:34 Temperature Pulse Rate Respiratory 18 Rate Blood Pressure O2 Sat by Pulse Oximetry ED Medical Decision Making - Lab Data Result diagrams: 04/06/18 21:33 04/06/18 21:33 - EKG Data -: EKG Interpreted by Me EKG shows normal: sinus rhythm, axis, intervals, QRS complexes, ST-T waves Rate: normal - EKG Data When compared to previous EKG there are: previous EKG unavailable Interpretation: normal EKG - Radiology Data Radiology results: image reviewed interpreted by me: X-ray of the bilateral tib-fib does not show any signs of osteomyelitis. There is mild to moderate soft tissue swelling apparent. - Medical Decision Making Patient presents from home with lower extremity swelling as his main complaint. He does have a history of CHF and there may be some CHF component but it also appears more consistent with cellulitis as there is some erythema, warmth, weeping. X-rays were done does not show any signs of osteomyelitis. He has a low-grade fever and a leukocytosis. He was started on vancomycin. Patient also presents with very elevated blood pressure. He was given some hydralazine, labetalol and Lasix with some improvement. He will be admitted to the hospital for further evaluation and treatment and was accepted for admission by the hospitalist, Dr. Anne. - Differential Diagnosis CHF, cellulitis, osteomyelitis, venous stasis Critical Care Time: No Critical care attestation.: If time is entered above; I have spent that time in minutes in the direct care of this critically ill patient, excluding procedure time. ED Disposition Clinical Impression: Cellulitis of both lower extremities, Hypertensive urgency CKD (chronic kidney disease) Qualifiers: Chronic kidney disease stage: unspecified stage Qualified Code(s): N18.9 - Chronic kidney disease, unspecified Disposition: OP ADMIT IP TO THIS HOSP Is pt being admited?: Yes Condition: Fair Time of Disposition: 00:42
[2018-04-06] MEDS ORDERED: LASIX IV ONE (23:07)
[2018-04-06] MEDS ORDERED: NORMODYNE IV ONE (23:49)
--- NOTE | 2018-04-07 00:34 | XRay Report ---
FINAL REPORT EXAM: XR TIB/FIB BILAT 2V HISTORY: leg pain, infection COMPARISON: None available. FINDINGS: Two views of each tibia and fibula obtained. Nonspecific soft tissue swelling. No focal bony erosive changes. Mild degenerative changes of bilater al ankle and knee joints. IMPRESSION: No focal bony erosive changes. Nonspecific soft tissue swelling.
[2018-04-07] MEDS ORDERED: ZOFRAN IV PRN (00:54)
[2018-04-07] MEDS ORDERED: ANTIVERT PO PRN (00:56)
[2018-04-07] MEDS ORDERED: VANCOMYCIN PHARMACY TO DOSE IV SCH (01:00)
[2018-04-07] MEDS ORDERED: D50W (25GM) Syringe IV PRN (01:02)
[2018-04-07] MEDS: TYLENOL PO PRN ×3 (03:00→22:03)
[2018-04-07] MEDS: MORPHINE IV PRN (03:03)
[2018-04-07] MEDS ORDERED: ZOSYN/NS 3.375GM/50ML 3.375 GM/50 ML BAG IV SCH (06:00)
[2018-04-07] MEDS ORDERED: NORMODYNE PO SCH (06:00)
[2018-04-07] MEDS: HEPARIN SUB-Q SCH ×3 (06:39→21:58)
[2018-04-07] MEDS ORDERED: NON-FORMULARY (Gabapentin 300 MG) PO SCH (08:00)
--- NOTE | 2018-04-07 08:11 | Consultation ---
History of Present Illness - Reason for Consult Consult date: 04/07/18 chronic renal failure - History of Present Illness The patient is a 62 YO AAM with medical hsitory significant for DM-2, HTN, Obesity, CKD, CHF, CVA, Cognitive decline and bedbound status who presented to the emergency department via EMS from home with complaint of bilateral lower extremity swelling, redness and pain. History was mostly obtained from his at the bedside. Patient developed redness, pain and ulceration of the LE skin about 5 days ago. He was brought into the hospital for possible infection. Creatinine was 2.4 on admission. Nephrology was consulted for further evaluation. Past History Past Medical History: diabetes, heart failure, hyperlipidemia, renal failure, stroke Medications and Allergies Allergies Allergy/AdvReac Type Severity Reaction Status Date / Time No Known Allergies Allergy Verified 09/16/17 13:48 Home Medications Medication Instructions Recorded Confirmed Last Taken Type Betoptic S 0.25% 1 drop OS BID 06/21/14 03/18/17 Unknown History Brimonidine Tartrate 0.2% 1 drop OS BID 06/21/14 03/18/17 Unknown History Cyclopentolate 1% 1 drop OS BID 06/21/14 03/18/17 Unknown History Gabapentin 300 mg PO TID 06/21/14 03/18/17 Unknown History Latanoprost 0.005% 1 drop OS DAILY 06/21/14 03/18/17 Unknown History Tobradex 1 drop OS DAILY 06/21/14 03/18/17 Unknown History Chlorthalidone [Thalitone] 25 mg PO QDAY 08/26/15 03/18/17 Unknown History Ergocalciferol [Vitamin D2] 1 cap PO QMONTH 08/26/15 03/18/17 Unknown History Torsemide [Demadex] 20 mg PO QID 08/26/15 03/18/17 Unknown History Aspirin EC [Aspirin Enteric Coated 81 mg PO QDAY #30 tablet. 08/30/15 03/18/17 Unknown Rx TAB] Insulin Glargine [Lantus VIAL] 30 units SUB-Q QHS units 08/30/15 03/18/17 Unknown Rx Insulin Glargine [Lantus VIAL] 70 units SUB-Q QHS #10 ml 08/30/15 03/18/17 Unknown Rx Insulin Glulisine [Apidra] 0 units SUB-Q AC units 08/30/15 03/18/17 Unknown Rx Labetalol [Normodyne TAB] 200 mg PO Q8HR #90 tablet 08/30/15 03/18/17 Unknown Rx Meclizine [Antivert] 25 mg PO Q8H PRN #14 tablet 08/30/15 03/18/17 Unknown Rx NIFEdipine XL [Procardia Xl] 60 mg PO Q12HR #60 tablet 08/30/15 03/18/17 Unknown Rx Simvastatin [Zocor TAB] 10 mg PO QHS #30 tablet 08/30/15 03/18/17 Unknown Rx hydrALAZINE [Apresoline TAB] 150 mg PO TID #90 tab 08/30/15 03/18/17 Unknown Rx Acetaminophen [Tylenol Arthritis] 650 mg PO Q8H #30 tablet.er 09/16/17 Unknown Rx Cephalexin [Keflex] 500 mg PO BID #14 capsule 09/16/17 Unknown Rx Active Meds: Active Medications Acetaminophen (Tylenol) 650 mg PO Q4H PRN PRN Reason: Fever >101 Last Admin: 04/07/18 03:00 Dose: 650 mg Documented by: Aspirin (Halfprin Ec) 81 mg PO QDAY [facility]ICKI Chlorthalidone (Thalitone) 25 mg PO QDAY [facility] Cyclopentolate HCl (Cyclogyl) 1 drops OS BID [facility] Dextrose (D50w (25gm) Syringe) 50 ml IV PRN PRN PRN Reason: Hypoglycemia Ergocalciferol (Vitamin D2) 50,000 unit PO QMONTH [facility] Gabapentin (Neurontin) 300 mg PO TID [facility] Heparin Sodium (Porcine) (Heparin) 5,000 unit SUB-Q Q8HR [facility] Last Admin: 04/07/18 06:39 Dose: 5,000 unit Documented by: Hydralazine HCl (Apresoline) 150 mg PO TID [facility] Piperacillin Sod/Tazobactam Sod (Zosyn/Ns 3.375gm/50ml) 3.375 gm in 50 mls @ 100 mls/hr IV Q8HR [facility]; Protocol Last Admin: 04/07/18 07:00 Dose: 100 mls/hr Documented by: Vancomycin HCl 1,750 mg/ (Sodium Chloride) 535 mls @ 333.333 mls/hr IV Q24H [facility] Insulin Glargine (Lantus) 30 units SUB-Q QHS [facility] Insulin Human Regular (Humulin R) 0 units SUB-Q [facility]; Protocol Insulin Human Regular (Humulin R) 0 units SUB-Q QHS [facility]; Protocol Labetalol HCl (Normodyne) 200 mg PO Q8HR [facility] Last Admin: 04/07/18 06:37 Dose: 200 mg Documented by: Latanoprost (Latanoprost 0.005%) 1 drops OS QPM [facility] Meclizine HCl (Antivert) 25 mg PO Q8H PRN PRN Reason: Vertigo Miscellaneous Medication (Betoptic S 0.25%) 1 drop OS BID [facility] Morphine Sulfate (Morphine) 2 mg IV Q4H PRN PRN Reason: Pain, Moderate (4-6) Last Admin: 04/07/18 03:03 Dose: 2 mg Documented by: Nifedipine (Procardia Xl) 60 mg PO Q12HR [facility] Ondansetron HCl (Zofran) 4 mg IV Q8H PRN PRN Reason: Nausea And Vomiting Last Admin: 04/07/18 03:02 Dose: 4 mg Documented by: Pravastatin Sodium (Pravachol) 20 mg PO QHS [facility] Tobramycin/Dexamethasone (Tobradex) 1 drops OS DAILY [facility] Torsemide (Demadex) 20 mg PO QID [facility] Review of Systems ROS unobtainable: due to mental status Exam - Vital Signs Vital signs: Vital Signs Pulse Ox 95 04/06/18 20:32 - General Appearance General appearance: well-developed, well-nourished, appears stated age, obese, other (not in distress) EENT: ATNC, sclerotic cornea (right eye) Neck: Present: neck supple, trachea midline Respiratory: Clear to Ascultation Heart: regular, S1S2, no murmurs Gastrointestinal: Present: normoactive bowel sounds, obese. Absent: tenderness, distended Integumentary: ulcer (both legs), skin tear, chronic venous stasis Neurologic: no asterixis, confused, disoriented, other (right eye blind) Musculoskeletal: Present: other (b/l LE edema noted) Results - Lab Results 04/06/18 21:33 04/06/18 21:33 Most recent lab results Calcium 9.5 mg/dL (8.4-10.2) 04/06/18 21:33 - Image Kidney/bladder ultrasound: pending Assessment and Plan 1. CKD stage 3: Patient presented with creatinine of 2.4. His creatinine was around 2.2 last year. Likely CKD stage 3 secondary to diabetic nephropathy. Urine studies and Renal US. Monitor renal function. 2. FEN: On diuretics for edema. Monitor. 3. LE cellulitis: 4. Uncontrolled HTN: Resume home meds. Monitor. 5. DM-2.
[2018-04-07] MEDS: APRESOLINE PO SCH ×3 (09:01→21:00)
[2018-04-07] MEDS: NEURONTIN PO SCH ×3 (09:03→21:00)
[2018-04-07] MEDS: HumuLIN R SUB-Q SCH ×4 (09:09→23:00)
--- NOTE | 2018-04-07 09:11 | History and Physical Report ---
CHIEF COMPLAINT: Swelling, redness in both lower extremities. HISTORY OF PRESENT ILLNESS: The patient is a 62-year-old male who was brought from his home on to the Emergency Room because of swelling and redness involving both legs. There is history of pain. There is no history of fever or chills. No history of nausea or vomiting or shortness of breath. PAST MEDICAL HISTORY: Pertinent for hypertension, cerebrovascular accident with right-sided weakness, also the patient has past history of congestive heart failure, type 1 diabetes mellitus, pulmonary embolism, chronic kidney disease, arthritis, corneal implant. PAST SURGICAL HISTORY: Pertinent for cholecystectomy, corneal implant involving the left eye. FAMILY HISTORY: Noncontributory. SOCIAL HISTORY: The patient lives with family. Does not smoke, does not drink alcohol and does not use illicit drugs. MEDICATIONS: The patient is on Betoptic 0.25% one drop to the right eye twice daily, brimonidine tartrate 0.2% one drop to the right eye twice daily, cyclopentolate 1% one drop to right eye twice daily, gabapentin 300 mg by mouth 3 times daily, latanoprost 0.005% one drop to the right eye daily, TobraDex one drop to right eye daily, Thalitone 25 mg by mouth daily, vitamin D2 one capsule by mouth daily, Demadex 20 mg by mouth 4 times a day, aspirin 81 mg by mouth daily, Lantus insulin 30 units subQ at bedtime, Lantus insulin 70 units subQ at bedtime. Also, the patient is on Apidra insulin per sliding scale and also on labetalol 200 mg by mouth every 8 hours. The patient is on meclizine 25 mg by mouth q. 8 hours as needed for vertigo. The patient is on Procardia 60 mg by mouth every 12 hours, Zocor 10 mg by mouth at bedtime. Also, the patient is on hydralazine 160 mg by mouth 3 times daily and Tylenol Arthritis 660 mg by mouth every 8 hours. The patient was placed previously on Keflex 500 mg by mouth twice daily. ALLERGIES: There are no known drug allergies. REVIEW OF SYSTEMS: CONSTITUTIONAL: There is no fever, no chills, no diaphoresis. HEENT: There is no headache or sore throat. CARDIOVASCULAR: There is no chest pain or orthopnea. RESPIRATORY SYSTEM: There is no shortness of breath or cough. GASTROINTESTINAL SYSTEM: There is no nausea, no vomiting, no abdominal pain, diarrhea or constipation. NEUROLOGICAL: There is no numbness, no dizziness, no altered mental status. MUSCULOSKELETAL: There is swelling on both legs and feet. DERMATOLOGICAL: There is swelling of both feet and legs and redness of both feet and legs with some thin excoriation of feet and legs. GENITOURINARY SYSTEM: There is dysuria but no hematuria or flank pain. Rest of system review is normal. PHYSICAL EXAMINATION: GENERAL: At the time of exam, the patient was found to be alert, oriented x 3, and not in acute distress. VITAL SIGNS: Shows temperature of 100.7 degrees Fahrenheit, pulse 93, respiration 18, blood pressure 169/77, O2 sat of 96% on room. HEENT: There is no evidence of corneal implant in the eyes. NECK: Supple with no JVD or carotid bruit. CARDIOVASCULAR: Showed normal first and second heart sounds with no gallops or murmurs. RESPIRATORY SYSTEM: Showed good air entry on both sides of the lungs with no abnormal breath sounds. GASTROINTESTINAL SYSTEM: Show abdomen to be full, soft, nontender with no organomegaly or rigidity. NEUROLOGICAL: Shows no focal deficit. MUSCULOSKELETAL SYSTEM: Shows swelling of both lower history. DERMATOLOGICAL SYSTEM: Show no redness of both legs and feet with skin excoriation and ulceration involving both legs. GENITOURINARY: Show no costovertebral angle tenderness. PERTINENT LABORATORY DATA AND IMAGING STUDIES: The patient had x-ray of the tibia and fibula of both legs done that shows no focal bony erosive change and nonspecific soft tissue swelling. The patient has CBC done with elevated white count, low hemoglobin of 11.7, low hematocrit of 36 with CBC differential showing elevated segmented neutrophil of 83.3. The patient's chemistry showed elevated BUN of 30, with elevated creatinine of 2.4. DIAGNOSES: 1. Cellulitis of both lower extremities. 2. Chronic kidney disease. PLAN: The patient will be admitted to medical surgical escobedo: 1. The patient will be on IV vancomycin with pharmacy to dose. 2. The patient will be on IV Zosyn 3.375 grams q. 8 hours. 3. The patient will be on IV morphine 2 mg every 4 hours as needed for pain and IV Zofran 4 mg every 8 hours as needed for nausea and vomiting. 6. The patient will have wound care nurse consult in the morning and also the patient will have Nephrology consult with Dr. Vu because of chronic kidney disease. 5. The patient will be on Accu-Chek before meals and at bedtime, followed by low-dose sliding scale using regular insulin coverage. 7. The patient will be on consistent carbohydrate 2 g sodium diet. 8. The patient will be on his home medication as shown in the medication reconciliation section. JOB# [id number] OCN/NTS
[2018-04-07] MEDS ORDERED: TOBRADEX OS SCH (10:00)
[2018-04-07] MEDS ORDERED: CYCLOPENTOLATE 1% OS SCH (10:00)
[2018-04-07] MEDS ORDERED: NON-FORMULARY (Torsemide [Demadex] 20 MG) PO SCH (10:00)
[2018-04-07] MEDS ORDERED: PROCARDIA XL PO SCH ×2 (10:00→11:43)
[2018-04-07] MEDS ORDERED: VITAMIN D2 PO SCH (10:00)
[2018-04-07] MEDS ORDERED: NON-FORMULARY (Latanoprost 0.005% 1 DROP) OS SCH (10:00)
[2018-04-07] MEDS: HALFPRIN EC PO SCH (10:15)
[2018-04-07] MEDS: DEMADEX PO SCH ×4 (10:15→22:03)
[2018-04-07] MEDS: THALITONE PO SCH (10:16)
[2018-04-07] MEDS: TOBRADEX OS SCH (10:17)
[2018-04-07] MEDS: CYCLOGYL OS SCH ×2 (10:17→21:56)
--- NOTE | 2018-04-07 11:42 | Progress Note ---
Assessment and Plan Assessment and plan: Sepsis. Patient meets criteria given the tachycardia, fever and diagnosis of lower extremity cellulitis. Follow-up blood cultures. Bilateral lower extremity cellulitis. Continue IV antibiotics. Consider ID consultation. Accelerated hypertension. Increase labetalol and Procardia dose. Diabetes mellitus type 2. Continue long-acting insulin and sliding scale. Tight glycemic control. History Interval history: 62-year-old -[place] male presents to the emergency department via EMS from home with complaint of bilateral lower extremity swelling, redness and possible infection. He has a past medical history of arthritis, CHF, previous CVA with right-sided deficits, insulin-dependent diabetes, hypertension, chronic kidney disease. The patient was admitted with diagnosis of cellulitis. No new issues overnight. Hospitalist Physical - Constitutional Vitals: Temp Pulse Resp BP Pulse Ox 100.3 F H 93 H 20 171/61 91 04/07/18 04:34 04/07/18 06:37 04/07/18 04:34 04/07/18 06:37 04/07/18 04:34 General appearance: Present: no acute distress, well-nourished - EENT Eyes: Present: PERRL, EOM intact ENT: hearing intact, clear oral mucosa, dentition normal - Neck Neck: Present: supple, normal ROM - Respiratory Respiratory effort: normal Respiratory: bilateral: CTA - Cardiovascular Rhythm: regular Heart Sounds: Present: S1 & S2. Absent: gallop, rub - Extremities Extremities: no ischemia, No edema, Full ROM - Abdominal General gastrointestinal: soft, non-tender, non-distended, normal bowel sounds - Integumentary Integumentary: Present: clear, warm, dry - Neurologic Neurologic: CNII-XII intact, moves all extremities Results - Labs CBC & Chem 7: 04/06/18 21:33 04/06/18 21:33 Labs: Laboratory Last Values WBC 16.8 K/mm3 (4.5-11.0) H 04/06/18 21:33 RBC 4.34 M/mm3 (3.65-5.03) 04/06/18 21:33 Hgb 11.7 gm/dl (11.8-15.2) L 04/06/18 21:33 Hct 36.0 % (35.5-45.6) 04/06/18 21:33 MCV 83 fl (84-94) L 04/06/18 21:33 MCH 27 pg (28-32) L 04/06/18 21:33 MCHC 33 % (32-34) 04/06/18 21:33 RDW 13.8 % (13.2-15.2) 04/06/18 21:33 Plt Count 269 K/mm3 (140-440) 04/06/18 21:33 Lymph % (Auto) 9.2 % (13.4-35.0) L 04/06/18 21:33 [place] % (Auto) 6.4 % (0.0-7.3) 04/06/18 21:33 Eos % (Auto) 0.4 % (0.0-4.3) 04/06/18 21:33 Baso % (Auto) 0.4 % (0.0-1.8) 04/06/18 21:33 Lymph # 1.5 K/mm3 (1.2-5.4) 04/06/18 21:33 [place] # 1.1 K/mm3 (0.0-0.8) H 04/06/18 21:33 Eos # 0.1 K/mm3 (0.0-0.4) 04/06/18 21:33 Baso # 0.1 K/mm3 (0.0-0.1) 04/06/18 21:33 Seg Neutrophils % 83.6 % (40.0-70.0) H 04/06/18 21:33 Seg Neutrophils # 14.1 K/mm3 (1.8-7.7) H 04/06/18 21:33 Sodium 138 mmol/L (137-145) 04/06/18 21:33 Potassium 4.2 mmol/L (3.6-5.0) 04/06/18 21:33 Chloride 94.9 mmol/L (98-107) L 04/06/18 21:33 Carbon Dioxide 29 mmol/L (22-30) 04/06/18 21:33 Anion Gap 18 mmol/L 04/06/18 21:33 BUN 30 mg/dL (9-20) H 04/06/18 21:33 Creatinine 2.4 mg/dL (0.8-1.5) H 04/06/18 21:33 Estimated GFR 33 ml/min 04/06/18 21:33 BUN/Creatinine Ratio 13 % 04/06/18 21:33 Glucose 197 mg/dL (75-100) H 04/06/18 21:33 POC Glucose 221 (70-105) H 04/07/18 09:01 Lactic Acid 1.60 mmol/L (0.7-2.0) 04/06/18 21:33 Calcium 9.5 mg/dL (8.4-10.2) 04/06/18 21:33 Total Bilirubin 0.40 mg/dL (0.1-1.2) 04/06/18 21:33 AST 19 units/L (5-40) 04/06/18 21:33 ALT 10 units/L (7-56) 04/06/18 21:33 Alkaline Phosphatase 94 units/L (35-129) 04/06/18 21:33 NT-Pro-B Natriuret Pep 595.7 pg/mL (0-900) 04/06/18 21:33 Total Protein 7.5 g/dL (6.3-8.2) 04/06/18 21:33 Albumin 3.7 g/dL (3.9-5) L 04/06/18 21:33 Albumin/Globulin Ratio 1.0 % 04/06/18 21:33
[2018-04-07] MEDS ORDERED: PROCARDIA XL PO ONE (12:00)
[2018-04-07] MEDS: AFLURIA QUAD 2018-2019 SYRINGE IM ONE ×2 (13:28→14:06)
[2018-04-07] MEDS: NORMODYNE PO SCH ×2 (14:05→21:37)
[2018-04-07] MEDS: ZOSYN/NS 2.25 GM/50ML 2.25 GM/50 ML BAG IV SCH ×2 (14:16→17:30)
[2018-04-07] MEDS: LATANOPROST 0.005% OS SCH (17:32)
[2018-04-07] MEDS: PRAVACHOL PO SCH (21:39)
[2018-04-07] MEDS ORDERED: VANCOMYCIN 1,750 MG in NACL 0.9% 500 ML 500 ML IV SCH (22:00)
[2018-04-07] MEDS ORDERED: LANTUS SUB-Q SCH (22:00)
[2018-04-07] MEDS ORDERED: NON-FORMULARY (Simvastatin 10 MG) PO SCH (22:00)
[2018-04-07] MEDS: PROCARDIA XL PO SCH (22:00)
[2018-04-08] MEDS: ZOSYN/NS 2.25 GM/50ML 2.25 GM/50 ML BAG IV SCH ×4 (00:03→20:00)
--- NOTE | 2018-04-08 00:17 | Ultrasound Report ---
FINAL REPORT EXAM: US RENAL BILAT HISTORY: Renal failure. COMPARISON: None available. TECHNIQUE: Several real-time grayscale and color Doppler images were obtained. FINDINGS: Left kidney not visualized. Limited exam due to patient limited mobility and body habitus per technol ogist. Right kidney measures 8.7 x 4.2 x 3.9 centimeters. Cortex 1.6 centimeters. Gross vascular flow to the right kidney. No gross focal renal lesion or hydronephrosis. Punctate nonobstructive renal calculi c ould be obscured by renal sinus fat. Visualize urinary bladder is distended but otherwise unremarkable. IMPRESSION: Left kidney not visualized. No gross focal renal lesion or hydronephrosis of the right kidney.
[2018-04-08] MEDS: MORPHINE IV PRN (02:50)
[2018-04-08 06:37] LABS: Basophils # (Auto) 0.1 K/mm3 (0.0-0.1); Basophils % (Auto) 0.4 % (0.0-1.8); Eosinophils # (Auto) 0.2 K/mm3 (0.0-0.4); Eosinophils % (Auto) 1.5 % (0.0-4.3); Hematocrit 32.2 % (35.5-45.6); Hemoglobin 10.5 gm/dl (11.8-15.2); Lymphocytes # (Auto) 1.9 K/mm3 (1.2-5.4); Lymphocytes % (Auto) 16.2 % (13.4-35.0); Mean Corpuscular HGB Conc 33 % (32-34); Mean Corpuscular Volume 83 fl (84-94); Monocytes # (Auto) 0.9 K/mm3 (0.0-0.8); Platelet Count 239 K/mm3 (140-440); Red Blood Count 3.88 M/mm3 (3.65-5.03); Red Cell Distribution Width 13.7 % (13.2-15.2)
[2018-04-08] MEDS: NORMODYNE PO SCH ×3 (06:51→22:17)
[2018-04-08] MEDS: TYLENOL PO PRN ×2 (06:51→14:56)
[2018-04-08 06:52] LABS: Calcium 8.7 mg/dL (8.4-10.2)
[2018-04-08] MEDS: HEPARIN SUB-Q SCH ×3 (06:52→22:20)
[2018-04-08] MEDS ORDERED: K-DUR PO ONE (08:00)
[2018-04-08] MEDS: HumuLIN R SUB-Q SCH ×4 (08:50→22:18)
--- NOTE | 2018-04-08 09:23 | Progress Note ---
Assessment and Plan 1. CKD stage 3: Patient presented with creatinine of 2.4. His creatinine was around 2.2 last year. CKD stage 3 likely secondary to diabetic nephropathy. Urine studies pending. Monitor renal function. 2. FEN: On diuretics for edema. Monitor. 3. Sepsis: Secondary to LE cellulitis. 4. Uncontrolled HTN: BP is better. Monitor. 5. DM-2. Subjective Date of service: 04/08/18 Interval history: Patient was seen and examined at the bedside. Objective - Vital Signs Vital signs: Vital Signs - 12hr 04/07/18 04/07/18 04/08/18 21:37 22:00 00:35 Temperature 100.0 F H Pulse Rate 80 70 Pulse Rate [ 70 Left Radial] Respiratory 18 20 Rate Blood Pressure 134/58 131/49 Blood Pressure [Right] O2 Sat by Pulse 98 Oximetry 04/08/18 04/08/18 04/08/18 05:04 06:46 06:51 Temperature 99.6 F 100.3 F H Pulse Rate 76 76 76 Pulse Rate [ Left Radial] Respiratory 20 Rate Blood Pressure 139/57 127/54 Blood Pressure 127/54 [Right] O2 Sat by Pulse 91 Oximetry - General Appearance General appearance: well-developed, well-nourished, appears stated age, obese, other (not in distress) EENT: ATNC, sclerotic cornea (right eye) Neck: supple Respiratory: Present: Clear to Ascultation Cardiology: regular, S1S2, no murmurs Gastrointestinal: normoactive bowel sounds, no tenderness, no distended, obese Integumentary: ulcer (both legs), skin tear Neurologic: no asterixis, confused, disoriented, other (right eye blind) Musculoskeletal: other (trace LE edema noted) - Lab 04/08/18 05:29 04/08/18 05:29 Most recent lab results Calcium 8.7 mg/dL (8.4-10.2) 04/08/18 05:29 Phosphorus 3.30 mg/dL (2.5-4.5) 04/08/18 05:29 Magnesium 2.10 mg/dL (1.7-2.3) 04/08/18 05:29 Medications & Allergies - Medications Allergies/Adverse Reactions: Allergies No Known Allergies Allergy (Verified 09/16/17 13:48) Home Medications: Home Medications Medication Instructions Recorded Confirmed Last Taken Type Betoptic S 0.25% 1 drop OS BID 06/21/14 03/18/17 Unknown History Brimonidine Tartrate 0.2% 1 drop OS BID 06/21/14 03/18/17 Unknown History Cyclopentolate 1% 1 drop OS BID 06/21/14 03/18/17 Unknown History Gabapentin 300 mg PO TID 06/21/14 03/18/17 Unknown History Latanoprost 0.005% 1 drop OS DAILY 06/21/14 03/18/17 Unknown History Tobradex 1 drop OS DAILY 06/21/14 03/18/17 Unknown History Chlorthalidone [Thalitone] 25 mg PO QDAY 08/26/15 03/18/17 Unknown History Ergocalciferol [Vitamin D2] 1 cap PO QMONTH 08/26/15 03/18/17 Unknown History Torsemide [Demadex] 20 mg PO QID 08/26/15 03/18/17 Unknown History Aspirin EC [Aspirin Enteric Coated 81 mg PO QDAY #30 tablet. 08/30/15 03/18/17 Unknown Rx TAB] Insulin Glargine [Lantus VIAL] 30 units SUB-Q QHS units 08/30/15 03/18/17 Unknown Rx Insulin Glargine [Lantus VIAL] 70 units SUB-Q QHS #10 ml 08/30/15 03/18/17 Unk nown Rx Insulin Glulisine [Apidra] 0 units SUB-Q AC units 08/30/15 03/18/17 Unknown Rx Labetalol [Normodyne TAB] 200 mg PO Q8HR #90 tablet 08/30/15 03/18/17 Unknown Rx Meclizine [Antivert] 25 mg PO Q8H PRN #14 tablet 08/30/15 03/18/17 Unknown Rx NIFEdipine XL [Procardia Xl] 60 mg PO Q12HR #60 tablet 08/30/15 03/18/17 Unknown Rx Simvastatin [Zocor TAB] 10 mg PO QHS #30 tablet 08/30/15 03/18/17 Unknown Rx hydrALAZINE [Apresoline TAB] 150 mg PO TID #90 tab 08/30/15 03/18/17 Unknown Rx Acetaminophen [Tylenol Arthritis] 650 mg PO Q8H #30 tablet.er 09/16/17 Unknown Rx Cephalexin [Keflex] 500 mg PO BID #14 capsule 09/16/17 Unknown Rx Active Medications: Generic Name Dose Route Start Last Admin Trade Name Umang PRN Reason Stop Dose Admin Acetaminophen 650 mg 04/07/18 00:56 04/08/18 06:51 Tylenol PO 650 mg Q4H PRN Administration Fever >101 Aspirin 81 mg 04/07/18 10:00 04/07/18 10:15 Halfprin Ec PO 81 mg QDAY VICKI Administration Chlorthalidone 25 mg 04/07/18 10:00 04/07/18 10:16 Thalitone PO 25 mg QDAY VICKI Administration Cyclopentolate HCl 1 drops 04/07/18 10:00 04/07/18 21:56 Cyclogyl OS 1 drops BID VICKI Administration Dextrose 50 ml 04/07/18 01:02 D50w (25gm) Syringe IV PRN PRN Hypoglycemia Ergocalciferol 50,000 unit 04/07/18 10:00 04/07/18 10:16 Vitamin D2 PO 50,000 unit QMONTH VICKI Administration Gabapentin 300 mg 04/07/18 08:00 04/07/18 21:00 Neurontin PO 300 mg TID VICKI Administration Heparin Sodium (Porcine) 5,000 unit 04/07/18 06:00 04/08/18 06:52 Heparin SUB-Q 5,000 unit Q8HR VICKI Administration Hydralazine HCl 150 mg 04/07/18 08:00 04/07/18 21:00 Apresoline PO 150 mg TID VICKI Administration Piperacillin Sod/Tazobactam Sod 2.25 gm in 50 mls @ 100 mls/hr 04/07/18 12:00 04/08/18 06:38 Zosyn/Ns 2.25 Gm/50ml IV 100 mls/hr Q6HR VICKI Administration Insulin Glargine 30 units 04/07/18 22:00 04/07/18 23:00 Lantus SUB-Q 30 units QHS VICKI Administration Insulin Human Regular 0 units 04/07/18 07:30 04/07/18 16:30 Humulin R SUB-Q 1 units AC VICKI Administration Protocol Insulin Human Regular 0 units 04/07/18 22:00 04/07/18 23:00 Humulin R SUB-Q 3 units QHS VICKI Administration Protocol Labetalol HCl 400 mg 04/07/18 14:00 04/08/18 06:51 Normodyne PO 400 mg Q8HR VICKI Administration Latanoprost 1 drops 04/07/18 18:00 04/07/18 17:32 Latanoprost 0.005% OS 1 drops QPM VICKI Administration Meclizine HCl 25 mg 04/07/18 00:56 Antivert PO Q8H PRN Vertigo Miscellaneous Medication 1 drop 04/07/18 10:00 Betoptic S 0.25% OS BID [facility] Morphine Sulfate 2 mg 04/07/18 00:54 04/08/18 02:50 Morphine IV 2 mg Q4H PRN Administration Pain, Moderate (4-6) Nifedipine 90 mg 04/07/18 22:00 04/07/18 22:00 Procardia Xl PO Not Given BID [facility] Ondansetron HCl 4 mg 04/07/18 00:54 04/07/18 03:02 Zofran IV 4 mg Q8H PRN Administration Nausea And Vomiting Pravastatin Sodium 20 mg 04/07/18 22:00 04/07/18 21:39 Pravachol PO 20 mg QHS VICKI Administration Tobramycin/Dexamethasone 1 drops 04/07/18 10:00 04/07/18 10:17 Tobradex OS 1 drops DAILY VICKI Administration Torsemide 20 mg 04/07/18 10:00 04/07/18 22:03 Demadex PO 20 mg QID VICKI Administration
--- NOTE | 2018-04-08 09:57 | Progress Note ---
Assessment and Plan Assessment and plan: Sepsis. Patient meets criteria given the tachycardia, fever and diagnosis of lower extremity cellulitis. Follow-up blood cultures. Bilateral lower extremity cellulitis. Continue IV antibiotics. Consider ID consultation. Accelerated hypertension. Increase labetalol and Procardia dose. CKD stage 3. Patient presented with creatinine of 2.4. His creatinine was around 2.2 last year. Likely CKD stage 3 secondary to diabetic nephropathy. F/U Urine studies and Renal US. Continue to monitor renal function. Diabetes mellitus type 2. Continue long-acting insulin and sliding scale. Increase Lantus to 35 units at bedtime. Tight glycemic control. History Interval history: 62-year-old -[place]iquais male presents to the emergency department via EMS from home with complaint of bilateral lower extremity swelling, redness and possible infection. He has a past medical history of arthritis, CHF, previous CVA with right-sided deficits, insulin-dependent diabetes, hypertension, chronic kidney disease. The patient was admitted with diagnosis of cellulitis. No new issues overnight. Hospitalist Physical - Constitutional Vitals: Temp Pulse Resp BP Pulse Ox 100.3 F H 76 20 127/54 91 04/08/18 06:46 04/08/18 06:51 04/08/18 05:04 04/08/18 06:51 04/08/18 05:04 General appearance: Present: no acute distress, well-nourished - EENT Eyes: Present: PERRL, EOM intact ENT: hearing intact, clear oral mucosa, dentition normal - Neck Neck: Present: supple, normal ROM - Respiratory Respiratory effort: normal Respiratory: bilateral: CTA - Cardiovascular Rhythm: regular Heart Sounds: Present: S1 & S2. Absent: gallop, rub - Extremities Extremities: no ischemia, No edema, Full ROM - Abdominal General gastrointestinal: soft, non-tender, non-distended, normal bowel sounds - Integumentary Integumentary: Present: clear, warm, dry - Neurologic Neurologic: CNII-XII intact, moves all extremities Results - Labs CBC & Chem 7: 04/08/18 05:29 04/08/18 05:29 Labs: Laboratory Last Values WBC 11.8 K/mm3 (4.5-11.0) H 04/08/18 05:29 RBC 3.88 M/mm3 (3.65-5.03) 04/08/18 05:29 Hgb 10.5 gm/dl (11.8-15.2) L 04/08/18 05:29 Hct 32.2 % (35.5-45.6) L 04/08/18 05:29 MCV 83 fl (84-94) L 04/08/18 05:29 MCH 27 pg (28-32) L 04/08/18 05:29 MCHC 33 % (32-34) 04/08/18 05:29 RDW 13.7 % (13.2-15.2) 04/08/18 05:29 Plt Count 239 K/mm3 (140-440) 04/08/18 05:29 Lymph % (Auto) 16.2 % (13.4-35.0) 04/08/18 05:29 [place] % (Auto) 8.0 % (0.0-7.3) H 04/08/18 05:29 Eos % (Auto) 1.5 % (0.0-4.3) 04/08/18 05:29 Baso % (Auto) 0.4 % (0.0-1.8) 04/08/18 05:29 Lymph # 1.9 K/mm3 (1.2-5.4) 04/08/18 05:29 [place] # 0.9 K/mm3 (0.0-0.8) H 04/08/18 05:29 Eos # 0.2 K/mm3 (0.0-0.4) 04/08/18 05:29 Baso # 0.1 K/mm3 (0.0-0.1) 04/08/18 05:29 Seg Neutrophils % 73.9 % (40.0-70.0) H 04/08/18 05:29 Seg Neutrophils # 8.7 K/mm3 (1.8-7.7) H 04/08/18 05:29 Sodium 140 mmol/L (137-145) 04/08/18 05:29 Potassium 3.6 mmol/L (3.6-5.0) 04/08/18 05:29 Chloride 96.0 mmol/L (98-107) L 04/08/18 05:29 Carbon Dioxide 30 mmol/L (22-30) 04/08/18 05:29 Anion Gap 18 mmol/L 04/08/18 05:29 BUN 27 mg/dL (9-20) H 04/08/18 05:29 Creatinine 2.5 mg/dL (0.8-1.5) H 04/08/18 05:29 Estimated GFR 32 ml/min 04/08/18 05:29 BUN/Creatinine Ratio 11 % 04/08/18 05:29 Glucose 254 mg/dL (75-100) H 04/08/18 05:29 POC Glucose 276 (70-105) H 04/08/18 08:35 Lactic Acid 1.60 mmol/L (0.7-2.0) 04/06/18 21:33 Calcium 8.7 mg/dL (8.4-10.2) 04/08/18 05:29 Phosphorus 3.30 mg/dL (2.5-4.5) 04/08/18 05:29 Magnesium 2.10 mg/dL (1.7-2.3) 04/08/18 05:29 Total Bilirubin 0.40 mg/dL (0.1-1.2) 04/06/18 21:33 AST 19 units/L (5-40) 04/06/18 21:33 ALT 10 units/L (7-56) 04/06/18 21:33 Alkaline Phosphatase 94 units/L (35-129) 04/06/18 21:33 NT-Pro-B Natriuret Pep 595.7 pg/mL (0-900) 04/06/18 21:33 Total Protein 7.5 g/dL (6.3-8.2) 04/06/18 21:33 Albumin 3.7 g/dL (3.9-5) L 04/06/18 21:33 Albumin/Globulin Ratio 1.0 % 04/06/18 21:33 PTH Intact 81.80 pg/mL (15-65) H 04/08/18 05:29 Random Vancomycin 9.7 ug/mL (0-40.0) 04/08/18 05:29
[2018-04-08] MEDS: APRESOLINE PO SCH ×3 (10:44→21:13)
[2018-04-08] MEDS: PROCARDIA XL PO SCH ×2 (10:44→22:16)
[2018-04-08] MEDS: HALFPRIN EC PO SCH (10:44)
[2018-04-08] MEDS: THALITONE PO SCH (10:44)
[2018-04-08] MEDS: NEURONTIN PO SCH ×3 (10:45→21:13)
[2018-04-08] MEDS: DEMADEX PO SCH ×4 (10:45→22:15)
[2018-04-08] MEDS: CYCLOGYL OS SCH ×2 (10:46→22:16)
[2018-04-08] MEDS: TOBRADEX OS SCH (10:47)
[2018-04-08] MEDS ORDERED: VANCOMYCIN 1,500 MG in NACL 0.9% 500 ML 500 ML IV ONE (12:00)
[2018-04-08] MEDS: LATANOPROST 0.005% OS SCH (19:45)
[2018-04-08] MEDS: PRAVACHOL PO SCH (22:16)
[2018-04-08] MEDS: LANTUS SUB-Q SCH (22:19)
[2018-04-08] MEDS: BETOPTIC S 0.25% OS SCH (22:19)
[2018-04-09] MEDS: ZOSYN/NS 2.25 GM/50ML 2.25 GM/50 ML BAG IV SCH ×4 (00:38→18:20)
[2018-04-09 04:55] LABS: Calcium 8.9 mg/dL (8.4-10.2)
[2018-04-09] MEDS: NORMODYNE PO SCH ×3 (05:45→22:27)
[2018-04-09] MEDS: HEPARIN SUB-Q SCH ×3 (05:46→22:23)
[2018-04-09] MEDS: HumuLIN R SUB-Q SCH ×3 (08:11→18:13)
--- NOTE | 2018-04-09 09:43 | Progress Note ---
Assessment and Plan 1. CKD stage 3: Patient presented with creatinine of 2.4. Creatinine level continue to increase likely multifactorial. Will hold / stop diuretics for now. CKD stage 3 likely secondary to diabetic nephropathy. Urine studies pending. Monitor renal function. 2. FEN: Edema has improved. Monitor. 3. Sepsis: Secondary to LE cellulitis. 4. Uncontrolled HTN: BP is better. Monitor. 5. DM-2. D/w his at the bedside. Subjective Date of service: 04/09/18 Interval history: Patient was seen and examined at the bedside. Objective - Vital Signs Vital signs: Vital Signs - 12hr 04/08/18 04/08/18 04/09/18 21:51 22:00 05:14 Temperature 99.2 F 99.9 F H Pulse Rate 73 83 Pulse Rate [ 68 Left Radial] Respiratory 16 20 19 Rate Blood Pressure 146/53 162/63 O2 Sat by Pulse 93 98 92 Oximetry 04/09/18 05:45 Temperature Pulse Rate 76 Pulse Rate [ Left Radial] Respiratory Rate Blood Pressure 148/58 O2 Sat by Pulse Oximetry - General Appearance General appearance: well-developed, well-nourished, appears stated age, obese, other (not in distress) EENT: ATNC, hearing diminished, sclerotic cornea (right eye) Neck: supple Respiratory: Present: Clear to Ascultation Cardiology: regular, S1S2, no murmurs Gastrointestinal: normoactive bowel sounds, no tenderness, no distended, obese Integumentary: ulcer, skin tear, chronic venous stasis, other (both legs covered with dressing) Neurologic: no asterixis, confused, disoriented, other (right eye blind) Musculoskeletal: other (no edema) - Lab 04/08/18 05:29 04/09/18 04:05 Most recent lab results Calcium 8.9 mg/dL (8.4-10.2) 04/09/18 04:05 Phosphorus 3.30 mg/dL (2.5-4.5) 04/08/18 05:29 Magnesium 2.10 mg/dL (1.7-2.3) 04/08/18 05:29 Medications & Allergies - Medications Allergies/Adverse Reactions: Allergies No Known Allergies Allergy (Verified 09/16/17 13:48) Home Medications: Home Medications Medication Instructions Recorded Confirmed Last Taken Type Betoptic S 0.25% 1 drop OS BID 06/21/14 04/09/18 Unknown History Brimonidine Tartrate 0.2% 1 drop OS BID 06/21/14 04/09/18 Unknown History Cyclopentolate 1% 1 drop OS BID 06/21/14 04/09/18 Unknown History Gabapentin 300 mg PO TID 06/21/14 04/09/18 Unknown History Latanoprost 0.005% 1 drop OS DAILY 06/21/14 04/09/18 Unknown History Tobradex 1 drop OS DAILY 06/21/14 04/09/18 Unknown History Chlorthalidone [Thalitone] 25 mg PO QDAY 08/26/15 04/09/18 Unknown History Ergocalciferol [Vitamin D2] 1 cap PO QMONTH 08/26/15 04/09/18 Unknown History Torsemide [Demadex] 20 mg PO QID 08/26/15 04/09/18 Unknown History Aspirin EC [Aspirin Enteric Coated 81 mg PO QDAY #30 tablet. 08/30/15 04/09/18 Unknown Rx TAB] Insulin Glargine [Lantus VIAL] 30 units SUB-Q QHS units 08/30/15 04/09/18 Unknown Rx Insulin Glargine [Lantus VIAL] 70 units SUB-Q QHS #10 ml 08/30/15 04/09/18 Unknown Rx Insulin Glulisine [Apidra] 0 units SUB-Q AC units 08/30/15 04/09/18 Unknown Rx Labetalol [Normodyne TAB] 200 mg PO Q8HR #90 tablet 08/30/15 04/09/18 Unknown Rx Meclizine [Antivert] 25 mg PO Q8H PRN #14 tablet 08/30/15 04/09/18 Unknown Rx NIFEdipine XL [Procardia Xl] 60 mg PO Q12HR #60 tablet 08/30/15 04/09/18 Unknown Rx Simvastatin [Zocor TAB] 10 mg PO QHS #30 tablet 08/30/15 04/09/18 Unknown Rx hydrALAZINE [Apresoline TAB] 150 mg PO TID #90 tab 08/30/15 04/09/18 Unknown Rx Acetaminophen [Tylenol Arthritis] 650 mg PO Q8H #30 tablet.er 09/16/17 04/09/18 Unknown Rx Cephalexin [Keflex] 500 mg PO BID #14 capsule 09/16/17 04/09/18 Unknown Rx Active Medications: Generic Name Dose Route Start Last Admin Trade Name Freq PRN Reason Stop Dose Admin Acetaminophen 650 mg 04/07/18 00:56 04/08/18 14:56 Tylenol PO 650 mg Q4H PRN Administration Fever >101 Aspirin 81 mg 04/07/18 10:00 04/08/18 10:44 Halfprin Ec PO 81 mg QDAY VICKI Administration Chlorthalidone 25 mg 04/07/18 10:00 04/08/18 10:44 Thalitone PO 25 mg QDAY VICKI Administration Cyclopentolate HCl 1 drops 04/07/18 10:00 04/08/18 22:16 Cyclogyl OS 1 drops BID VICKI Administration Dextrose 50 ml 04/07/18 01:02 D50w (25gm) Syringe IV PRN PRN Hypoglycemia Ergocalciferol 50,000 unit 04/07/18 10:00 04/07/18 10:16 Vitamin D2 PO 50,000 unit QMONTH VICKI Administration Gabapentin 300 mg 04/07/18 08:00 04/08/18 21:13 Neurontin PO 300 mg TID VICKI Administration Heparin Sodium (Porcine) 5,000 unit 04/07/18 06:00 04/09/18 05:46 Heparin SUB-Q 5,000 unit Q8HR VICKI Administration Hydralazine HCl 150 mg 04/07/18 08:00 04/08/18 21:13 Apresoline PO 150 mg TID VICKI Administration Piperacillin Sod/Tazobactam Sod 2.25 gm in 50 mls @ 100 mls/hr 04/07/18 12:00 04/09/18 05:45 Zosyn/Ns 2.25 Gm/50ml IV 100 mls/hr Q6HR VICKI Administration Insulin Glargine 35 units 04/08/18 22:00 04/08/18 22:19 Lantus SUB-Q 35 units QHS VICKI Administration Insulin Human Regular 0 units 04/07/18 07:30 04/08/18 18:01 Humulin R SUB-Q 3 units AC VICKI Administration Protocol Insulin Human Regular 0 units 04/07/18 22:00 04/08/18 22:18 Humulin R SUB-Q 2 units QHS VICKI Administration Protocol Labetalol HCl 400 mg 04/07/18 14:00 04/09/18 05:45 Normodyne PO 400 mg Q8HR VICKI Administration Latanoprost 1 drops 04/07/18 18:00 04/08/18 19:45 Latanoprost 0.005% OS 1 drops QPM VICKI Administration Meclizine HCl 25 mg 04/07/18 00:56 Antivert PO Q8H PRN Vertigo Miscellaneous Medication 1 drop 04/08/18 22:00 04/08/18 22:19 Betoptic S 0.25% OS 1 drop BID VICKI Administration Morphine Sulfate 2 mg 04/07/18 00:54 04/08/18 02:50 Morphine IV 2 mg Q4H PRN Administration Pain, Moderate (4-6) Nifedipine 90 mg 04/07/18 22:00 04/08/18 22:16 Procardia Xl PO 90 mg BID VICKI Administration Ondansetron HCl 4 mg 04/07/18 00:54 04/07/18 03:02 Zofran IV 4 mg Q8H PRN Administration Nausea And Vomiting Pravastatin Sodium 20 mg 04/07/18 22:00 04/08/18 22:16 Pravachol PO 20 mg QHS VICKI Administration Tobramycin/Dexamethasone 1 drops 04/07/18 10:00 04/08/18 10:47 Tobradex OS 1 drops DAILY VICKI Administration Torsemide 20 mg 04/07/18 10:00 04/08/18 22:15 Demadex PO 20 mg QID VICKI Administration
[2018-04-09] MEDS ORDERED: DEMADEX PO SCH (10:00)
[2018-04-09] MEDS: APRESOLINE PO SCH ×3 (10:14→22:28)
[2018-04-09] MEDS: NEURONTIN PO SCH ×3 (10:15→22:29)
[2018-04-09] MEDS: BETOPTIC S 0.25% OS SCH ×2 (11:15→23:55)
[2018-04-09] MEDS: CYCLOGYL OS SCH ×2 (11:16→23:54)
[2018-04-09] MEDS: TOBRADEX OS SCH (11:16)
--- NOTE | 2018-04-09 11:25 | Progress Note ---
Assessment and Plan Assessment and plan: Sepsis. Patient meets criteria given the tachycardia, fever and diagnosis of lower extremity cellulitis. Follow-up blood cultures. Bilateral lower extremity cellulitis. Continue IV antibiotics. Consider ID consultation. Accelerated hypertension. Increase labetalol and Procardia dose. CKD stage 3. Patient presented with creatinine of 2.4. His creatinine was around 2.2 last year. Likely CKD stage 3 secondary to diabetic nephropathy. F/U Urine studies and Renal US. Continue to monitor renal function. Diabetes mellitus type 2. Continue long-acting insulin and sliding scale. Increase Lantus to 35 units at bedtime. Tight glycemic control. History Interval history: 62-year-old -[place] male presents to the emergency department via EMS from home with complaint of bilateral lower extremity swelling, redness and possible infection. He has a past medical history of arthritis, CHF, previous CVA with right-sided deficits, insulin-dependent diabetes, hypertension, chronic kidney disease. The patient was admitted with diagnosis of cellulitis. No new issues overnight. Hospitalist Physical - Constitutional Vitals: Temp Pulse Resp BP Pulse Ox 99.9 F H 76 19 148/58 92 04/09/18 05:14 04/09/18 05:45 04/09/18 05:14 04/09/18 05:45 04/09/18 05:14 General appearance: Present: no acute distress, well-nourished - EENT Eyes: Present: PERRL, EOM intact ENT: hearing intact, clear oral mucosa, dentition normal - Neck Neck: Present: supple, normal ROM - Respiratory Respiratory effort: normal Respiratory: bilateral: CTA - Cardiovascular Rhythm: regular Heart Sounds: Present: S1 & S2. Absent: gallop, rub - Extremities Extremities: no ischemia, No edema, Full ROM - Abdominal General gastrointestinal: soft, non-tender, non-distended, normal bowel sounds - Integumentary Integumentary: Present: clear, warm, dry - Neurologic Neurologic: CNII-XII intact, moves all extremities Results - Labs CBC & Chem 7: 04/08/18 05:29 04/09/18 04:05 Labs: Laboratory Last Values WBC 11.8 K/mm3 (4.5-11.0) H 04/08/18 05:29 RBC 3.88 M/mm3 (3.65-5.03) 04/08/18 05:29 Hgb 10.5 gm/dl (11.8-15.2) L 04/08/18 05:29 Hct 32.2 % (35.5-45.6) L 04/08/18 05:29 MCV 83 fl (84-94) L 04/08/18 05:29 MCH 27 pg (28-32) L 04/08/18 05:29 MCHC 33 % (32-34) 04/08/18 05:29 RDW 13.7 % (13.2-15.2) 04/08/18 05:29 Plt Count 239 K/mm3 (140-440) 04/08/18 05:29 Lymph % (Auto) 16.2 % (13.4-35.0) 04/08/18 05:29 [place] % (Auto) 8.0 % (0.0-7.3) H 04/08/18 05:29 Eos % (Auto) 1.5 % (0.0-4.3) 04/08/18 05:29 Baso % (Auto) 0.4 % (0.0-1.8) 04/08/18 05:29 Lymph # 1.9 K/mm3 (1.2-5.4) 04/08/18 05:29 [place] # 0.9 K/mm3 (0.0-0.8) H 04/08/18 05:29 Eos # 0.2 K/mm3 (0.0-0.4) 04/08/18 05:29 Baso # 0.1 K/mm3 (0.0-0.1) 04/08/18 05:29 Seg Neutrophils % 73.9 % (40.0-70.0) H 04/08/18 05:29 Seg Neutrophils # 8.7 K/mm3 (1.8-7.7) H 04/08/18 05:29 Sodium 140 mmol/L (137-145) 04/09/18 04:05 Potassium 3.9 mmol/L (3.6-5.0) 04/09/18 04:05 Chloride 97.2 mmol/L (98-107) L 04/09/18 04:05 Carbon Dioxide 31 mmol/L (22-30) H 04/09/18 04:05 Anion Gap 16 mmol/L 04/09/18 04:05 BUN 28 mg/dL (9-20) H 04/09/18 04:05 Creatinine 2.8 mg/dL (0.8-1.5) H 04/09/18 04:05 Estimated GFR 28 ml/min 04/09/18 04:05 BUN/Creatinine Ratio 10 % 04/09/18 04:05 Glucose 245 mg/dL (75-100) H 04/09/18 04:05 POC Glucose 214 (70-105) H 04/09/18 08:02 Lactic Acid 1.60 mmol/L (0.7-2.0) 04/06/18 21:33 Calcium 8.9 mg/dL (8.4-10.2) 04/09/18 04:05 Phosphorus 3.30 mg/dL (2.5-4.5) 04/08/18 05:29 Magnesium 2.10 mg/dL (1.7-2.3) 04/08/18 05:29 Total Bilirubin 0.40 mg/dL (0.1-1.2) 04/06/18 21:33 AST 19 units/L (5-40) 04/06/18 21:33 ALT 10 units/L (7-56) 04/06/18 21:33 Alkaline Phosphatase 94 units/L (35-129) 04/06/18 21:33 NT-Pro-B Natriuret Pep 595.7 pg/mL (0-900) 04/06/18 21:33 Total Protein 7.5 g/dL (6.3-8.2) 04/06/18 21:33 Albumin 3.7 g/dL (3.9-5) L 04/06/18 21:33 Albumin/Globulin Ratio 1.0 % 04/06/18 21:33 PTH Intact 81.80 pg/mL (15-65) H 04/08/18 05:29 Random Vancomycin 9.7 ug/mL (0-40.0) 04/08/18 05:29
[2018-04-09] MEDS: PROCARDIA XL PO SCH ×2 (11:45→23:58)
[2018-04-09] MEDS: HALFPRIN EC PO SCH (12:00)
[2018-04-09] MEDS: LATANOPROST 0.005% OS SCH (18:17)
[2018-04-09] MEDS: THALITONE PO SCH (18:18)
[2018-04-09] MEDS: LANTUS SUB-Q SCH (23:57)
[2018-04-09] MEDS: PRAVACHOL PO SCH (23:58)
[2018-04-10] MEDS: HumuLIN R SUB-Q SCH ×5 (00:11→22:57)
[2018-04-10] MEDS: ZOSYN/NS 2.25 GM/50ML 2.25 GM/50 ML BAG IV SCH ×4 (00:52→18:39)
[2018-04-10 06:08] LABS: Calcium 9.2 mg/dL (8.4-10.2)
[2018-04-10] MEDS: HEPARIN SUB-Q SCH ×2 (06:26→16:00)
[2018-04-10] MEDS: NORMODYNE PO SCH ×2 (06:29→16:00)
--- NOTE | 2018-04-10 08:49 | Progress Note ---
Assessment and Plan 1. CKD stage 3: Patient presented with creatinine of 2.4. Creatinine level is better today. CKD stage 3 likely secondary to diabetic nephropathy. Urine studies pending. Monitor renal function. 2. FEN: Edema has improved. Monitor. 3. Sepsis: Secondary to LE cellulitis. 4. Uncontrolled HTN: BP is better. Monitor. 5. DM-2. Subjective Date of service: 04/10/18 Interval history: Patient was seen and examined at the bedside. Objective - Vital Signs Vital signs: Vital Signs - 12hr 04/09/18 04/09/18 04/09/18 21:45 22:00 22:27 Temperature 99.6 F Pulse Rate 102 H 70 Respiratory 24 Rate Blood Pressure 172/71 130/62 O2 Sat by Pulse 94 98 Oximetry 04/10/18 04/10/18 05:11 06:29 Temperature 99.4 F Pulse Rate 76 76 Respiratory 24 Rate Blood Pressure 156/61 156/61 O2 Sat by Pulse 92 Oximetry - General Appearance General appearance: well-developed, well-nourished, appears stated age, obese, other (not in distress) EENT: ATNC, sclerotic cornea (right eye) Neck: supple Respiratory: Present: Clear to Ascultation Cardiology: regular, S1S2, no murmurs Gastrointestinal: normoactive bowel sounds, no tenderness, no distended, obese Integumentary: ulcer, skin tear, chronic venous stasis, other (LE dressing noted) Neurologic: no asterixis, confused, disoriented, other (right eye blind) Musculoskeletal: other (no edema) - Lab 04/08/18 05:29 04/10/18 04:45 Most recent lab results Calcium 9.2 mg/dL (8.4-10.2) 04/10/18 04:45 Phosphorus 3.30 mg/dL (2.5-4.5) 04/08/18 05:29 Magnesium 2.10 mg/dL (1.7-2.3) 04/08/18 05:29 Medications & Allergies - Medications Allergies/Adverse Reactions: Allergies No Known Allergies Allergy (Verified 09/16/17 13:48) Home Medications: Home Medications Medication Instructions Recorded Confirmed Last Taken Type Betoptic S 0.25% 1 drop OS BID 06/21/14 04/09/18 Unknown History Brimonidine Tartrate 0.2% 1 drop OS BID 06/21/14 04/09/18 Unknown History Cyclopentolate 1% 1 drop OS BID 06/21/14 04/09/18 Unknown History Gabapentin 300 mg PO TID 06/21/14 04/09/18 Unknown History Latanoprost 0.005% 1 drop OS DAILY 06/21/14 04/09/18 Unknown History Tobradex 1 drop OS DAILY 06/21/14 04/09/18 Unknown History Chlorthalidone [Thalitone] 25 mg PO QDAY 08/26/15 04/09/18 Unknown History Ergocalciferol [Vitamin D2] 1 cap PO QMONTH 08/26/15 04/09/18 Unknown History Torsemide [Demadex] 20 mg PO QID 08/26/15 04/09/18 Unknown History Aspirin EC [Aspirin Enteric Coated 81 mg PO QDAY #30 tablet. 08/30/15 04/09/18 Unknown Rx TAB] Insulin Glargine [Lantus VIAL] 30 units SUB-Q QHS units 08/30/15 04/09/18 Unknown Rx Insulin Glargine [Lantus VIAL] 70 units SUB-Q QHS #10 ml 08/30/15 04/09/18 Unknown Rx Insulin Glulisine [Apidra] 0 units SUB-Q AC units 08/30/15 04/09/18 Unknown Rx Labetalol [Normodyne TAB] 200 mg PO Q8HR #90 tablet 08/30/15 04/09/18 Unknown Rx Meclizine [Antivert] 25 mg PO Q8H PRN #14 tablet 08/30/15 04/09/18 Unknown Rx NIFEdipine XL [Procardia Xl] 60 mg PO Q12HR #60 tablet 08/30/15 04/09/18 Unknown Rx Simvastatin [Zocor TAB] 10 mg PO QHS #30 tablet 08/30/15 04/09/18 Unknown Rx hydrALAZINE [Apresoline TAB] 150 mg PO TID #90 tab 08/30/15 04/09/18 Unknown Rx Acetaminophen [Tylenol Arthritis] 650 mg PO Q8H #30 tablet.er 09/16/17 04/09/18 Unknown Rx Cephalexin [Keflex] 500 mg PO BID #14 capsule 09/16/17 04/09/18 Unknown Rx Active Medications: Generic Name Dose Route Start Last Admin Trade Name Freq PRN Reason Stop Dose Admin Acetaminophen 650 mg 04/07/18 00:56 04/08/18 14:56 Tylenol PO 650 mg Q4H PRN Administration Fever >101 Aspirin 81 mg 04/07/18 10:00 04/09/18 12:00 Halfprin Ec PO 81 mg QDAY VICKI Administration Cyclopentolate HCl 1 drops 04/07/18 10:00 04/09/18 23:54 Cyclogyl OS 1 drops BID VICKI Administration Dextrose 50 ml 04/07/18 01:02 D50w (25gm) Syringe IV PRN PRN Hypoglycemia Ergocalciferol 50,000 unit 04/07/18 10:00 04/07/18 10:16 Vitamin D2 PO 50,000 unit QMONTH VICKI Administration Gabapentin 300 mg 04/07/18 08:00 04/09/18 22:29 Neurontin PO 300 mg TID VICKI Administration Heparin Sodium (Porcine) 5,000 unit 04/07/18 06:00 04/10/18 06:26 Heparin SUB-Q 5,000 unit Q8HR VICKI Administration Hydralazine HCl 150 mg 04/07/18 08:00 04/09/18 22:28 Apresoline PO 150 mg TID VICKI Administration Piperacillin Sod/Tazobactam Sod 2.25 gm in 50 mls @ 100 mls/hr 04/07/18 12:00 04/10/18 06:30 Zosyn/Ns 2.25 Gm/50ml IV 100 mls/hr Q6HR VICKI Administration Vancomycin HCl 1 gm in 250 mls @ 167.007 mls/hr 04/10/18 10:00 Vancomycin/Ns 1 Gm/250 Ml IV 04/10/18 11:29 ONCE ONE Insulin Glargine 35 units 04/08/18 22:00 04/09/18 23:57 Lantus SUB-Q 35 units QHS VICKI Administration Insulin Human Regular 0 units 04/07/18 07:30 04/09/18 18:13 Humulin R SUB-Q 3 units AC VICKI Administration Protocol Insulin Human Regular 0 units 04/07/18 22:00 04/10/18 00:11 Humulin R SUB-Q 3 units QHS [facility] Administration Protocol Labetalol HCl 400 mg 04/07/18 14:00 04/10/18 06:29 Normodyne PO 400 mg Q8HR VICKI Administration Latanoprost 1 drops 04/07/18 18:00 04/09/18 18:17 Latanoprost 0.005% OS 1 drops QPM VICKI Administration Meclizine HCl 25 mg 04/07/18 00:56 Antivert PO Q8H PRN Vertigo Miscellaneous Medication 1 drop 04/08/18 22:00 04/09/18 23:55 Betoptic S 0.25% OS 1 drop BID VICKI Administration Morphine Sulfate 2 mg 04/07/18 00:54 04/08/18 02:50 Morphine IV 2 mg Q4H PRN Administration Pain, Moderate (4-6) Nifedipine 90 mg 04/07/18 22:00 04/09/18 23:58 Procardia Xl PO 90 mg BID VICKI Administration Ondansetron HCl 4 mg 04/07/18 00:54 04/07/18 03:02 Zofran IV 4 mg Q8H PRN Administration Nausea And Vomiting Pravastatin Sodium 20 mg 04/07/18 22:00 04/09/18 23:58 Pravachol PO 20 mg QHS VICKI Administration Tobramycin/Dexamethasone 1 drops 04/07/18 10:00 04/09/18 11:16 Tobradex OS 1 drops DAILY VICKI Administration
[2018-04-10] MEDS ORDERED: VANCOMYCIN/NS 1 GM/250 ML 1 GM/250 ML BAG IV ONE (10:00)
--- NOTE | 2018-04-10 11:32 | Progress Note ---
Assessment and Plan Assessment and plan: Sepsis. Patient meets criteria given the tachycardia, fever and diagnosis of lower extremity cellulitis. Follow-up blood cultures. Bilateral lower extremity cellulitis/ulcers. Continue IV antibiotics. The patient will have outpatient wound care next week as well as home health wound care. Accelerated hypertension. Increase labetalol and Procardia dose. CKD stage 3. Patient presented with creatinine of 2.4. His creatinine was around 2.2 last year. Likely CKD stage 3 secondary to diabetic nephropathy. Patient appears to be back at his baseline. Diabetes mellitus type 2. Continue long-acting insulin and sliding scale. Increase Lantus to 35 units at bedtime. Tight glycemic control. Deconditioning. Physical therapy recommended subacute rehabilitation. However, is refusing due to payment. Therefore, she would like to take the patient home. Anticipate discharge in a.m. History Interval history: 62-year-old -[place] male presents to the emergency department via EMS from home with complaint of bilateral lower extremity swelling, redness and possible infection. He has a past medical history of arthritis, CHF, previous CVA with right-sided deficits, insulin-dependent diabetes, hypertension, chronic kidney disease. The patient was admitted with diagnosis of cellulitis. No new issues overnight. Hospitalist Physical - Constitutional Vitals: Temp Pulse Resp BP Pulse Ox 99.4 F 76 24 156/61 92 04/10/18 05:11 04/10/18 06:29 04/10/18 05:11 04/10/18 06:29 04/10/18 05:11 General appearance: Present: no acute distress, well-nourished - EENT Eyes: Present: PERRL, EOM intact ENT: hearing intact, clear oral mucosa, dentition normal - Neck Neck: Present: supple, normal ROM - Respiratory Respiratory effort: normal Respiratory: bilateral: CTA - Cardiovascular Rhythm: regular Heart Sounds: Present: S1 & S2. Absent: gallop, rub - Extremities Extremities: no ischemia, No edema, Full ROM - Abdominal General gastrointestinal: soft, non-tender, non-distended, normal bowel sounds - Integumentary Integumentary: Present: clear, warm, dry - Neurologic Neurologic: CNII-XII intact, moves all extremities Results - Labs CBC & Chem 7: 04/08/18 05:29 04/10/18 04:45 Labs: Laboratory Last Values WBC 11.8 K/mm3 (4.5-11.0) H 04/08/18 05:29 RBC 3.88 M/mm3 (3.65-5.03) 04/08/18 05:29 Hgb 10.5 gm/dl (11.8-15.2) L 04/08/18 05:29 Hct 32.2 % (35.5-45.6) L 04/08/18 05:29 MCV 83 fl (84-94) L 04/08/18 05:29 MCH 27 pg (28-32) L 04/08/18 05:29 MCHC 33 % (32-34) 04/08/18 05:29 RDW 13.7 % (13.2-15.2) 04/08/18 05:29 Plt Count 239 K/mm3 (140-440) 04/08/18 05:29 Lymph % (Auto) 16.2 % (13.4-35.0) 04/08/18 05:29 [place] % (Auto) 8.0 % (0.0-7.3) H 04/08/18 05:29 Eos % (Auto) 1.5 % (0.0-4.3) 04/08/18 05:29 Baso % (Auto) 0.4 % (0.0-1.8) 04/08/18 05:29 Lymph # 1.9 K/mm3 (1.2-5.4) 04/08/18 05:29 [place] # 0.9 K/mm3 (0.0-0.8) H 04/08/18 05:29 Eos # 0.2 K/mm3 (0.0-0.4) 04/08/18 05:29 Baso # 0.1 K/mm3 (0.0-0.1) 04/08/18 05:29 Seg Neutrophils % 73.9 % (40.0-70.0) H 04/08/18 05:29 Seg Neutrophils # 8.7 K/mm3 (1.8-7.7) H 04/08/18 05:29 Sodium 141 mmol/L (137-145) 04/10/18 04:45 Potassium 3.7 mmol/L (3.6-5.0) 04/10/18 04:45 Chloride 97.1 mmol/L (98-107) L 04/10/18 04:45 Carbon Dioxide 29 mmol/L (22-30) 04/10/18 04:45 Anion Gap 19 mmol/L 04/10/18 04:45 BUN 25 mg/dL (9-20) H 04/10/18 04:45 Creatinine 2.4 mg/dL (0.8-1.5) H 04/10/18 04:45 Estimated GFR 33 ml/min 04/10/18 04:45 BUN/Creatinine Ratio 10 % 04/10/18 04:45 Glucose 141 mg/dL (75-100) H 04/10/18 04:45 POC Glucose 258 (70-105) H 04/09/18 21:46 Lactic Acid 1.60 mmol/L (0.7-2.0) 04/06/18 21:33 Calcium 9.2 mg/dL (8.4-10.2) 04/10/18 04:45 Phosphorus 3.30 mg/dL (2.5-4.5) 04/08/18 05:29 Magnesium 2.10 mg/dL (1.7-2.3) 04/08/18 05:29 Total Bilirubin 0.40 mg/dL (0.1-1.2) 04/06/18 21:33 AST 19 units/L (5-40) 04/06/18 21:33 ALT 10 units/L (7-56) 04/06/18 21:33 Alkaline Phosphatase 94 units/L (35-129) 04/06/18 21:33 NT-Pro-B Natriuret Pep 595.7 pg/mL (0-900) 04/06/18 21:33 Total Protein 7.5 g/dL (6.3-8.2) 04/06/18 21:33 Albumin 3.7 g/dL (3.9-5) L 04/06/18 21:33 Albumin/Globulin Ratio 1.0 % 04/06/18 21:33 PTH Intact 81.80 pg/mL (15-65) H 04/08/18 05:29 Random Vancomycin 10.3 ug/mL (0-40.0) 04/10/18 04:45
[2018-04-10] MEDS: APRESOLINE PO SCH ×3 (12:14→22:48)
[2018-04-10] MEDS: NEURONTIN PO SCH ×3 (12:15→22:50)
[2018-04-10] MEDS: HALFPRIN EC PO SCH (12:16)
[2018-04-10] MEDS: PROCARDIA XL PO SCH ×2 (12:16→22:45)
[2018-04-10] MEDS: BETOPTIC S 0.25% OS SCH ×2 (12:17→22:51)
[2018-04-10] MEDS: TOBRADEX OS SCH (12:18)
[2018-04-10] MEDS: CYCLOGYL OS SCH (12:18)
--- NOTE | 2018-04-10 13:53 | Query- Renal Failure ---
Aleksander Cox Date:__04/10/18 Fueler/CDS:__sofya/alma Phone#:__[phone] Exercise your independent professional judgment when responding to query. Questions asked do not imply a particular answer is desired or expected. We greatly appreciate your clarification on this issue. Clinical Documentation States: 62-year-old -[place] male presents to the emergency department via EMS from home with complaint of bilateral lower extremity swelling, redness and possible infection. Assessment and plan: Sepsis. Bilateral lower extremity cellulitis/ulcers. Continue IV antibiotics. Accelerated hypertension. Clinical Findings Show: 04/06/18 04/08/18 04/09/18 04/10/18 Creatinine 2.4 2.5 2.8 2.4 Bun/Cr ratio 13 11 10 10 Please clarify if you mean: Acute Renal Failure with or due to: [ ] Tubular Necrosis [ ] Medullary Necrosis [ ] Vasomotor Nephropathy [ ] Shock Kidney [ ] Tubular Nephrosis [ ] Renal Tubular Stasis [ ] Cortical Necrosis [ ] Acute Renal Failure (unspecified) [ ] Lower Tubular Nephrosis [ ] Other: [ ] Not Applicable Present on Admission: [ ] Yes (Y) [ x] Clinically undeterminable (W) [ ] No (N) Please also document response in your Progress Notes and/or Discharge Summary and indicate if the condition was present on admission. SANJAY
[2018-04-10] MEDS: LATANOPROST 0.005% OS SCH (18:30)
[2018-04-10] MEDS: LANTUS SUB-Q SCH (22:58)
[2018-04-10] MEDS: PRAVACHOL PO SCH (22:59)
[2018-04-11] MEDS: ZOSYN/NS 2.25 GM/50ML 2.25 GM/50 ML BAG IV SCH ×5 (00:35→23:54)
[2018-04-11 05:33] LABS: Calcium 9.3 mg/dL (8.4-10.2)
[2018-04-11] MEDS: NORMODYNE PO SCH ×4 (06:02→23:55)
[2018-04-11] MEDS: CYCLOGYL OS SCH ×3 (06:52→22:36)
[2018-04-11] MEDS: HEPARIN SUB-Q SCH ×4 (06:54→22:16)
[2018-04-11] MEDS: APRESOLINE PO SCH ×3 (08:36→22:15)
[2018-04-11] MEDS: NEURONTIN PO SCH ×3 (08:36→22:15)
[2018-04-11] MEDS: HumuLIN R SUB-Q SCH ×4 (08:37→22:33)
--- NOTE | 2018-04-11 09:03 | Discharge Summary ---
Providers - Providers Date of Admission: 04/07/18 00:43 Date of discharge: 04/11/18 Attending physician: LUCIANA TALAVERA 04/07/18 06:00 Consult to Physician [CONS] Routine Comment: Consulting Provider: NITA GRAVES Physician Instructions: Reason For Exam: CKD Consult to Wound/ET Nurse [CONS] Routine Reason For Exam: wound eval 04/07/18 07:33 Physical Therapy Evaluation and Treat [CONS] Routine Comment: Reason For Exam: Immobility 04/07/18 07:35 Speech Therapy Evaluation and Treat [CONS] Routine Reason For Exam: eval for speech Primary care physician: WHEEL PRESSER Hospitalization Reason for admission: cellulitis Condition: Fair Hospital course: 62-year-old -[place]er male presents to the emergency department via EMS from home with complaint of bilateral lower extremity swelling, redness and possible infection. He has a past medical history of arthritis, CHF, previous CVA with right-sided deficits, insulin-dependent diabetes, hypertension, chronic kidney disease. The patient was admitted with diagnosis of sepsis secondary to cellulitis. The patient was treated with appropriate IV antibiotics and wound care. Blood cultures were found to be negative. The patient was also noted to have diagnosis of accelerated hypertension and his home antihypertensive medications of labetalol and Procardia were adjusted. Patient also was noted to have acute kidney injury on chronic kidney disease stage III and was seen by nephrology consultation. Patient was noted to have vasomotor nephropathy with resolution after IV fluid hydration by to his baseline creatinine. Patient was also seen by physical therapy for deconditioning who initially recommended subacute rehabilitation. However, is refusing due to inability to pay. Therefore, she would like to take the patient home. Case management arranged for home health physical therapy and wound care. Patient also has outpatient follow-up and wound care clinic on Friday. Dedicated discharge time 35 minutes. Disposition: TO HOME OR SELFCARE Time spent for discharge: 35 - Discharge Diagnoses (1) Sepsis Status: Acute (2) Cellulitis Status: Acute (3) CKD (chronic kidney disease) Status: Acute Qualifiers: Chronic kidney disease stage: unspecified stage Qualified Code(s): N18.9 - Chronic kidney disease, unspecified (4) Cellulitis of both lower extremities Status: Acute (5) Hypertensive urgency Status: Acute (6) Acute kidney injury Status: Acute Core Measure Documentation - Palliative Care Palliative Care/ Comfort Measures: Not Applicable - Core Measures Any of the following diagnoses?: none Exam - Constitutional Vitals: Temp Pulse Resp BP Pulse Ox 99.3 F 77 16 170/78 95 04/11/18 05:47 04/11/18 05:47 04/11/18 05:47 04/11/18 06:03 04/11/18 05:47 General appearance: Present: no acute distress, well-nourished - EENT Eyes: Present: PERRL ENT: hearing intact, clear oral mucosa - Neck Neck: Present: supple, normal ROM - Respiratory Respiratory effort: normal Respiratory: bilateral: CTA - Cardiovascular Heart Sounds: Present: S1 & S2. Absent: rub, click - Extremities Extremities: pulses symmetrical, No edema Peripheral Pulses: within normal limits - Abdominal General gastrointestinal: Present: soft, non-tender, non-distended, normal bowel sounds Male genitourinary: Present: normal - Integumentary Integumentary: Present: clear, warm, dry - Musculoskeletal Musculoskeletal: gait normal, strength equal bilaterally - Psychiatric Psychiatric: appropriate mood/affect, intact judgment & insight - Neurologic Neurologic: CNII-XII intact, moves all extremities Plan Activity: advance as tolerated Weight Bearing Status: Weight Bear as Tolerated Diet: diabetic, renal Special Instructions: physical therapy, home health RN, other (home health wound) Follow up with: PRIMARY CARE,MD [Primary Care Provider] - 3-5 Days Prescriptions: Aspirin EC [Aspirin Enteric Coated TAB] 81 mg PO QDAY #30 tablet.dr Larson S 0.25% 1 drop OS BID 30 Days Cephalexin [Keflex] 500 mg PO BID #14 capsule Chlorthalidone [Thalitone] 25 mg PO QDAY #30 tablet Cyclopentolate 1% 1 drop OS BID 30 Days Ergocalciferol [Vitamin D2] 1 cap PO QMONTH 30 Days capsule Gabapentin 300 mg PO TID #90 hydrALAZINE [Apresoline TAB] 150 mg PO TID #90 tab Insulin Glargine [Lantus VIAL] 30 units SUB-Q QHS 30 Days units Insulin Glargine [Lantus VIAL] 70 units SUB-Q QHS #10 ml Labetalol [Normodyne TAB] 400 mg PO Q8HR #90 tablet Meclizine [Antivert] 25 mg PO Q8H PRN #14 tablet PRN Reason: Vertigo NIFEdipine XL [Procardia Xl] 90 mg PO BID #60 tablet
[2018-04-11] MEDS: HALFPRIN EC PO SCH (10:20)
[2018-04-11] MEDS: PROCARDIA XL PO SCH ×2 (10:20→23:54)
[2018-04-11] MEDS: BETOPTIC S 0.25% OS SCH ×2 (10:20→22:37)
[2018-04-11] MEDS: TOBRADEX OS SCH (10:21)
--- NOTE | 2018-04-11 13:51 | Progress Note ---
Assessment and Plan 1. CKD stage 3: Patient presented with creatinine of 2.4. Creatinine level is better today. CKD stage 3 likely secondary to diabetic nephropathy. Monitor renal function. 2. FEN: Edema has improved. Monitor. 3. Sepsis: Secondary to LE cellulitis. 4. Uncontrolled HTN: BP is better. Monitor. 5. DM-2. F/u with me in 2 weeks. D/w his at the bedside. Subjective Date of service: 04/11/18 Interval history: Patient was seen and examined at the bedside. Objective - Vital Signs Vital signs: Vital Signs - 12hr 04/11/18 04/11/18 04/11/18 05:47 06:02 06:03 Temperature 99.3 F Pulse Rate 77 Respiratory 16 Rate Blood Pressure 168/73 176/82 170/78 O2 Sat by Pulse 95 Oximetry - General Appearance General appearance: well-developed, well-nourished, appears stated age, obese, other (not in distress) EENT: ATNC, sclerotic cornea (right eye) Neck: supple Respiratory: Present: Clear to Ascultation Cardiology: regular, S1S2, no murmurs Gastrointestinal: normoactive bowel sounds, no tenderness, no distended, obese Integumentary: skin tear, chronic venous stasis, other (bilateral leg dressing noted) Neurologic: no asterixis, confused, disoriented, other (right eye blindness) Musculoskeletal: other (no edema) - Lab 04/08/18 05:29 04/11/18 04:51 Most recent lab results Calcium 9.3 mg/dL (8.4-10.2) 04/11/18 04:51 Phosphorus 3.30 mg/dL (2.5-4.5) 04/08/18 05:29 Magnesium 2.10 mg/dL (1.7-2.3) 04/08/18 05:29 Medications & Allergies - Medications Allergies/Adverse Reactions: Allergies No Known Allergies Allergy (Verified 09/16/17 13:48) Home Medications: Home Medications Medication Instructions Recorded Confirmed Last Taken Type Brimonidine Tartrate 0.2% 1 drop OS BID 06/21/14 04/09/18 Unknown History Latanoprost 0.005% 1 drop OS DAILY 06/21/14 04/09/18 Unknown History Tobradex 1 drop OS DAILY 06/21/14 04/09/18 Unknown History Torsemide [Demadex] 20 mg PO QID 08/26/15 04/09/18 Unknown History Insulin Glulisine [Apidra] 0 units SUB-Q AC units 08/30/15 04/09/18 Unknown Rx Acetaminophen [Tylenol Arthritis] 650 mg PO Q8H #30 tablet.er 09/16/17 04/09/18 Unknown Rx Aspirin EC [Aspirin Enteric Coated 81 mg PO QDAY #30 tablet.dr 04/11/18 Unknown Rx TAB] Betoptic S 0.25% 1 drop OS BID 30 Days 04/11/18 Unknown Rx Cephalexin [Keflex] 500 mg PO BID #14 capsule 04/11/18 Unknown Rx Chlorthalidone [Thalitone] 25 mg PO QDAY #30 tablet 04/11/18 Unknown Rx Cyclopentolate 1% 1 drop OS BID 30 Days 04/11/18 Unknown Rx Ergocalciferol [Vitamin D2] 1 cap PO QMONTH 30 Days capsule 04/11/18 Unknown Rx Gabapentin 300 mg PO TID #90 04/11/18 Unknown Rx Insulin Glargine [Lantus VIAL] 30 units SUB-Q QHS 30 Days units 04/11/18 Unknown Rx Insulin Glargine [Lantus VIAL] 70 units SUB-Q QHS #10 ml 04/11/18 Unknown Rx Insulin Regular, Human [HumuLIN R] 0 units SUB-Q AC units 04/11/18 Unknown Rx Insulin Regular, Human [HumuLIN R] 0 units SUB-Q QHS units 04/11/18 Unknown Rx Labetalol [Normodyne TAB] 400 mg PO Q8HR #90 tablet 04/11/18 Unknown Rx Meclizine [Antivert] 25 mg PO Q8H PRN #14 tablet 04/11/18 Unknown Rx NIFEdipine XL [Procardia Xl] 90 mg PO BID #60 tablet 04/11/18 Unknown Rx Pravastatin [Pravachol] 20 mg PO QHS tablet 04/11/18 Unknown Rx hydrALAZINE [Apresoline TAB] 150 mg PO TID #90 tab 04/11/18 Unknown Rx Active Medications: Generic Name Dose Route Start Last Admin Trade Name Freq PRN Reason Stop Dose Admin Acetaminophen 650 mg 04/07/18 00:56 04/08/18 14:56 Tylenol PO 650 mg Q4H PRN Administration Fever >101 Aspirin 81 mg 04/07/18 10:00 04/11/18 10:20 Halfprin Ec PO 81 mg QDAY VICKI Administration Cyclopentolate HCl 1 drops 04/07/18 10:00 04/11/18 10:19 Cyclogyl OS 1 drops BID VICKI Administration Dextrose 50 ml 04/07/18 01:02 D50w (25gm) Syringe IV PRN PRN Hypoglycemia Ergocalciferol 50,000 unit 04/07/18 10:00 04/07/18 10:16 Vitamin D2 PO 50,000 unit QMONTH VICKI Administration Gabapentin 300 mg 04/07/18 08:00 04/11/18 08:36 Neurontin PO 300 mg TID VICKI Administration Heparin Sodium (Porcine) 5,000 unit 04/07/18 06:00 04/11/18 06:56 Heparin SUB-Q 5,000 unit Q8HR VICKI Administration Hydralazine HCl 150 mg 04/07/18 08:00 04/11/18 08:36 Apresoline PO 150 mg TID VICKI Administration Piperacillin Sod/Tazobactam Sod 2.25 gm in 50 mls @ 100 mls/hr 04/07/18 12:00 04/11/18 12:42 Zosyn/Ns 2.25 Gm/50ml IV 100 mls/hr Q6HR [facility] Administration Insulin Glargine 35 units 04/08/18 22:00 04/10/18 22:58 Lantus SUB-Q Not Given QHS [facility] Insulin Human Regular 0 units 04/07/18 07:30 04/11/18 12:43 Humulin R SUB-Q 2 units AC [facility] Administration Protocol Insulin Human Regular 0 units 04/07/18 22:00 04/10/18 22:57 Humulin R SUB-Q Not Given QHS [facility] Protocol Labetalol HCl 400 mg 04/07/18 14:00 04/11/18 06:03 Normodyne PO 400 mg Q8HR VICKI Administration Latanoprost 1 drops 04/07/18 18:00 04/10/18 18:30 Latanoprost 0.005% OS 1 drops QPM VICKI Administration Meclizine HCl 25 mg 04/07/18 00:56 Antivert PO Q8H PRN Vertigo Miscellaneous Medication 1 drop 04/08/18 22:00 04/11/18 10:20 Betoptic S 0.25% OS 1 drop BID VICKI Administration Morphine Sulfate 2 mg 04/07/18 00:54 04/08/18 02:50 Morphine IV 2 mg Q4H PRN Administration Pain, Moderate (4-6) Nifedipine 90 mg 04/07/18 22:00 04/11/18 10:20 Procardia Xl PO 90 mg BID VICKI Administration Ondansetron HCl 4 mg 04/07/18 00:54 04/07/18 03:02 Zofran IV 4 mg Q8H PRN Administration Nausea And Vomiting Pravastatin Sodium 20 mg 04/07/18 22:00 04/10/18 22:59 Pravachol PO 20 mg QHS VICKI Administration Tobramycin/Dexamethasone 1 drops 04/07/18 10:00 04/11/18 10:21 Tobradex OS 1 drops DAILY VICKI Administration
[2018-04-11] MEDS: MORPHINE IV PRN (16:32)
[2018-04-11] MEDS: LATANOPROST 0.005% OS SCH (17:31)
[2018-04-11] MEDS: PRAVACHOL PO SCH (22:18)
[2018-04-11] MEDS: LANTUS SUB-Q SCH (22:36)
[2018-04-12 06:13] LABS: Calcium 9.3 mg/dL (8.4-10.2)
[2018-04-12] MEDS: ZOSYN/NS 2.25 GM/50ML 2.25 GM/50 ML BAG IV SCH ×3 (06:15→17:21)
[2018-04-12] MEDS: NORMODYNE PO SCH ×2 (06:15→13:29)
[2018-04-12] MEDS: HEPARIN SUB-Q SCH ×2 (06:15→13:28)
[2018-04-12] MEDS: APRESOLINE PO SCH ×2 (08:11→13:27)
[2018-04-12] MEDS: HumuLIN R SUB-Q SCH ×3 (08:11→17:21)
[2018-04-12] MEDS: NEURONTIN PO SCH ×2 (08:12→13:28)
--- NOTE | 2018-04-12 08:35 | Progress Note ---
Assessment and Plan Assessment and plan: Sepsis. Patient meets criteria given the tachycardia, fever and diagnosis of lower extremity cellulitis. Follow-up blood cultures. Bilateral lower extremity cellulitis/ulcers. Continue IV antibiotics. The patient will have outpatient wound care next week as well as home health wound care. Accelerated hypertension. Increase labetalol and Procardia dose. CKD stage 3. Patient presented with creatinine of 2.4. His creatinine was around 2.2 last year. Likely CKD stage 3 secondary to diabetic nephropathy. Patient appears to be back at his baseline. Diabetes mellitus type 2. Continue long-acting insulin and sliding scale. Increase Lantus to 35 units at bedtime. Tight glycemic control. Deconditioning. Physical therapy recommended subacute rehabilitation. However, is refusing due to payment. Therefore, she would like to take the patient home. The patient was discharged. However, nursing reports that hospital that was not arranged for home. Therefore, discharge was held until further evaluation. - Patient Problems (1) Sepsis Current Visit: Yes Status: Acute (2) Cellulitis Current Visit: Yes Status: Acute (3) CKD (chronic kidney disease) Current Visit: Yes Status: Acute Qualifiers: Chronic kidney disease stage: unspecified stage Qualified Code(s): N18.9 - Chronic kidney disease, unspecified (4) Cellulitis of both lower extremities Current Visit: Yes Status: Acute (5) Hypertensive urgency Current Visit: Yes Status: Acute (6) Acute kidney injury Current Visit: No Status: Acute History Interval history: 62-year-old -[place] male presents to the emergency department via EMS from home with complaint of bilateral lower extremity swelling, redness and possible infection. He has a past medical history of arthritis, CHF, previous CVA with right-sided deficits, insulin-dependent diabetes, hypertension, chronic kidney disease. The patient was admitted with diagnosis of cellulitis. No new issues overnight. Hospitalist Physical - Constitutional Vitals: Temp Pulse Resp BP Pulse Ox 100.0 F H 66 20 173/73 93 04/12/18 05:40 04/12/18 06:15 04/12/18 05:40 04/12/18 06:15 04/12/18 05:40 General appearance: Present: no acute distress, well-nourished - EENT Eyes: Present: PERRL, EOM intact ENT: hearing intact, clear oral mucosa, dentition normal - Neck Neck: Present: supple, normal ROM - Respiratory Respiratory effort: normal Respiratory: bilateral: CTA - Cardiovascular Rhythm: regular Heart Sounds: Present: S1 & S2. Absent: gallop, rub - Extremities Extremities: no ischemia, No edema, Full ROM - Abdominal General gastrointestinal: soft, non-tender, non-distended, normal bowel sounds - Integumentary Integumentary: Present: clear, warm, dry - Neurologic Neurologic: CNII-XII intact, moves all extremities Results - Labs CBC & Chem 7: 04/08/18 05:29 04/12/18 05:29 Labs: Laboratory Last Values WBC 11.8 K/mm3 (4.5-11.0) H 04/08/18 05:29 RBC 3.88 M/mm3 (3.65-5.03) 04/08/18 05:29 Hgb 10.5 gm/dl (11.8-15.2) L 04/08/18 05:29 Hct 32.2 % (35.5-45.6) L 04/08/18 05:29 MCV 83 fl (84-94) L 04/08/18 05:29 MCH 27 pg (28-32) L 04/08/18 05:29 MCHC 33 % (32-34) 04/08/18 05:29 RDW 13.7 % (13.2-15.2) 04/08/18 05:29 Plt Count 239 K/mm3 (140-440) 04/08/18 05:29 Lymph % (Auto) 16.2 % (13.4-35.0) 04/08/18 05:29 [place] % (Auto) 8.0 % (0.0-7.3) H 04/08/18 05:29 Eos % (Auto) 1.5 % (0.0-4.3) 04/08/18 05:29 Baso % (Auto) 0.4 % (0.0-1.8) 04/08/18 05:29 Lymph # 1.9 K/mm3 (1.2-5.4) 04/08/18 05:29 [place] # 0.9 K/mm3 (0.0-0.8) H 04/08/18 05:29 Eos # 0.2 K/mm3 (0.0-0.4) 04/08/18 05:29 Baso # 0.1 K/mm3 (0.0-0.1) 04/08/18 05:29 Seg Neutrophils % 73.9 % (40.0-70.0) H 04/08/18 05:29 Seg Neutrophils # 8.7 K/mm3 (1.8-7.7) H 04/08/18 05:29 Sodium 137 mmol/L (137-145) 04/12/18 05:29 Potassium 4.0 mmol/L (3.6-5.0) 04/12/18 05:29 Chloride 97.6 mmol/L (98-107) L 04/12/18 05:29 Carbon Dioxide 25 mmol/L (22-30) 04/12/18 05:29 Anion Gap 18 mmol/L 04/12/18 05:29 BUN 20 mg/dL (9-20) 04/12/18 05:29 Creatinine 2.1 mg/dL (0.8-1.5) H 04/12/18 05:29 Estimated GFR 39 ml/min 04/12/18 05:29 BUN/Creatinine Ratio 10 % 04/12/18 05:29 Glucose 173 mg/dL (75-100) H 04/12/18 05:29 POC Glucose 166 (70-105) H 04/12/18 07:41 Lactic Acid 1.60 mmol/L (0.7-2.0) 04/06/18 21:33 Calcium 9.3 mg/dL (8.4-10.2) 04/12/18 05:29 Phosphorus 3.30 mg/dL (2.5-4.5) 04/08/18 05:29 Magnesium 2.10 mg/dL (1.7-2.3) 04/08/18 05:29 Total Bilirubin 0.40 mg/dL (0.1-1.2) 04/06/18 21:33 AST 19 units/L (5-40) 04/06/18 21:33 ALT 10 units/L (7-56) 04/06/18 21:33 Alkaline Phosphatase 94 units/L (35-129) 04/06/18 21:33 NT-Pro-B Natriuret Pep 595.7 pg/mL (0-900) 04/06/18 21:33 Total Protein 7.5 g/dL (6.3-8.2) 04/06/18 21:33 Albumin 3.7 g/dL (3.9-5) L 04/06/18 21:33 Albumin/Globulin Ratio 1.0 % 04/06/18 21:33 PTH Intact 81.80 pg/mL (15-65) H 04/08/18 05:29 Random Vancomycin 9.0 ug/mL (0-40.0) 04/12/18 05:29
[2018-04-12] MEDS: PROCARDIA XL PO SCH (09:42)
[2018-04-12] MEDS: HALFPRIN EC PO SCH (09:43)
[2018-04-12] MEDS: BETOPTIC S 0.25% OS SCH (09:46)
[2018-04-12] MEDS: CYCLOGYL OS SCH (09:46)
[2018-04-12] MEDS: TOBRADEX OS SCH (09:46)
--- NOTE | 2018-04-12 12:00 | Progress Note ---
Assessment and Plan 1. Acute kidney injury: VAZQUEZ superimposed on CKD stage 3. Renal function is better. CKD stage 3 likely secondary to diabetic nephropathy. Monitor renal function. 2. FEN: Edema has improved. Monitor. 3. Sepsis: Secondary to LE cellulitis. 4. Uncontrolled HTN: BP is better. Monitor. 5. DM-2. F/u with me in 2 weeks. Subjective Date of service: 04/12/18 Interval history: Patient was seen and examined at the bedside. Objective - Vital Signs Vital signs: Vital Signs - 12hr 04/12/18 04/12/18 05:40 06:15 Temperature 100.0 F H Pulse Rate 69 66 Respiratory 20 Rate Blood Pressure 161/69 173/73 O2 Sat by Pulse 93 Oximetry - General Appearance General appearance: well-developed, well-nourished, appears stated age, obese, other (not in distress) EENT: ATNC, sclerotic cornea (right eye) Neck: supple Respiratory: Present: Clear to Ascultation Cardiology: regular, S1S2, no murmurs Gastrointestinal: normoactive bowel sounds, no tenderness, no distended Integumentary: other (both legs covered with dressing) Neurologic: confused, disoriented, other (right eye blind, able to move extremities) Musculoskeletal: other (no edema) - Lab 04/08/18 05:29 04/12/18 05:29 Most recent lab results Calcium 9.3 mg/dL (8.4-10.2) 04/12/18 05:29 Phosphorus 3.30 mg/dL (2.5-4.5) 04/08/18 05:29 Magnesium 2.10 mg/dL (1.7-2.3) 04/08/18 05:29 Medications & Allergies - Medications Allergies/Adverse Reactions: Allergies No Known Allergies Allergy (Verified 09/16/17 13:48) Home Medications: Home Medications Medication Instructions Recorded Confirmed Last Taken Type Brimonidine Tartrate 0.2% 1 drop OS BID 06/21/14 04/09/18 Unknown History Latanoprost 0.005% 1 drop OS DAILY 06/21/14 04/09/18 Unknown History Tobradex 1 drop OS DAILY 06/21/14 04/09/18 Unknown History Torsemide [Demadex] 20 mg PO QID 08/26/15 04/09/18 Unknown History Insulin Glulisine [Apidra] 0 units SUB-Q AC units 08/30/15 04/09/18 Unknown Rx Acetaminophen [Tylenol Arthritis] 650 mg PO Q8H #30 tablet.er 09/16/17 04/09/18 Unknown Rx Aspirin EC [Aspirin Enteric Coated 81 mg PO QDAY #30 tablet. 04/11/18 Unknown Rx TAB] Betoptic S 0.25% 1 drop OS BID 30 Days 04/11/18 Unknown Rx Cephalexin [Keflex] 500 mg PO BID #14 capsule 04/11/18 Unknown Rx Chlorthalidone [Thalitone] 25 mg PO QDAY #30 tablet 04/11/18 Unknown Rx Cyclopentolate 1% 1 drop OS BID 30 Days 04/11/18 Unknown Rx Ergocalciferol [Vitamin D2] 1 cap PO QMONTH 30 Days capsule 04/11/18 Unknown Rx Gabapentin 300 mg PO TID #90 04/11/18 Unknown Rx Insulin Glargine [Lantus VIAL] 30 units SUB-Q QHS 30 Days units 04/11/18 Unknown Rx Insulin Glargine [Lantus VIAL] 70 units SUB-Q QHS #10 ml 04/11/18 Unknown Rx Insulin Regular, Human [HumuLIN R] 0 units SUB-Q AC units 04/11/18 Unknown Rx Insulin Regular, Human [HumuLIN R] 0 units SUB-Q QHS units 04/11/18 Unknown Rx Labetalol [Normodyne TAB] 400 mg PO Q8HR #90 tablet 04/11/18 Unknown Rx Meclizine [Antivert] 25 mg PO Q8H PRN #14 tablet 04/11/18 Unknown Rx NIFEdipine XL [Procardia Xl] 90 mg PO BID #60 tablet 04/11/18 Unknown Rx Pravastatin [Pravachol] 20 mg PO QHS tablet 04/11/18 Unknown Rx hydrALAZINE [Apresoline TAB] 150 mg PO TID #90 tab 04/11/18 Unknown Rx Active Medications: Generic Name Dose Route Start Last Admin Trade Name Freq PRN Reason Stop Dose Admin Acetaminophen 650 mg 04/07/18 00:56 04/08/18 14:56 Tylenol PO 650 mg Q4H PRN Administration Fever >101 Aspirin 81 mg 04/07/18 10:00 04/12/18 09:43 Halfprin Ec PO 81 mg QDAY VICKI Administration Cyclopentolate HCl 1 drops 04/07/18 10:00 04/12/18 09:46 Cyclogyl OS 1 drops BID VICKI Administration Dextrose 50 ml 04/07/18 01:02 D50w (25gm) Syringe IV PRN PRN Hypoglycemia Ergocalciferol 50,000 unit 04/07/18 10:00 04/07/18 10:16 Vitamin D2 PO 50,000 unit QMONTH VICKI Administration Gabapentin 300 mg 04/07/18 08:00 04/12/18 08:12 Neurontin PO 300 mg TID VICKI Administration Heparin Sodium (Porcine) 5,000 unit 04/07/18 06:00 04/12/18 06:15 Heparin SUB-Q 5,000 unit Q8HR VICKI Administration Hydralazine HCl 150 mg 04/07/18 08:00 04/12/18 08:11 Apresoline PO 150 mg TID VICKI Administration Piperacillin Sod/Tazobactam Sod 2.25 gm in 50 mls @ 100 mls/hr 04/07/18 12:00 04/12/18 11:43 Zosyn/Ns 2.25 Gm/50ml IV 100 mls/hr Q6HR [facility] Administration Insulin Glargine 35 units 04/08/18 22:00 04/11/18 22:36 Lantus SUB-Q 35 units QHS VICKI Administration Insulin Human Regular 0 units 04/07/18 07:30 04/12/18 11:48 Humulin R SUB-Q Not Given AC [facility] Protocol Insulin Human Regular 0 units 04/07/18 22:00 04/11/18 22:33 Humulin R SUB-Q 2 units QHS VICKI Administration Protocol Labetalol HCl 400 mg 04/07/18 14:00 04/12/18 06:15 Normodyne PO 400 mg Q8HR VICKI Administration Latanoprost 1 drops 04/07/18 18:00 04/11/18 17:31 Latanoprost 0.005% OS 1 drops QPM VICKI Administration Meclizine HCl 25 mg 04/07/18 00:56 Antivert PO Q8H PRN Vertigo Miscellaneous Medication 1 drop 04/08/18 22:00 04/12/18 09:46 Betoptic S 0.25% OS 1 drop BID VICKI Administration Morphine Sulfate 2 mg 04/07/18 00:54 04/11/18 16:32 Morphine IV 2 mg Q4H PRN Administration Pain, Moderate (4-6) Nifedipine 90 mg 04/07/18 22:00 04/12/18 09:42 Procardia Xl PO 90 mg BID VICKI Administration Ondansetron HCl 4 mg 04/07/18 00:54 04/07/18 03:02 Zofran IV 4 mg Q8H PRN Administration Nausea And Vomiting Pravastatin Sodium 20 mg 04/07/18 22:00 04/11/18 22:18 Pravachol PO 20 mg QHS [facility] Administration Tobramycin/Dexamethasone 1 drops 04/07/18 10:00 04/12/18 09:46 Tobradex OS 1 drops DAILY [facility] Administration
[2018-04-12] MEDS ORDERED: VANCOMYCIN 1,250 MG in NACL 0.9% 250ML 250 ML IV ONE (14:00)
[2018-04-12] MEDS: LATANOPROST 0.005% OS SCH (17:21)
[2018-04-13] MEDS: HEPARIN SUB-Q SCH ×3 (00:25→14:17)
[2018-04-13] MEDS: PRAVACHOL PO SCH (00:25)
[2018-04-13] MEDS: APRESOLINE PO SCH ×3 (00:26→14:16)
[2018-04-13] MEDS: NORMODYNE PO SCH ×3 (00:28→14:16)
[2018-04-13] MEDS: PROCARDIA XL PO SCH ×2 (00:28→09:13)
[2018-04-13] MEDS: NEURONTIN PO SCH ×3 (00:29→14:31)
[2018-04-13] MEDS: LANTUS SUB-Q SCH (00:29)
[2018-04-13] MEDS: HumuLIN R SUB-Q SCH ×3 (00:30→11:48)
[2018-04-13] MEDS: CYCLOGYL OS SCH ×2 (00:31→09:15)
[2018-04-13] MEDS: BETOPTIC S 0.25% OS SCH ×2 (00:32→09:16)
[2018-04-13] MEDS: ZOSYN/NS 2.25 GM/50ML 2.25 GM/50 ML BAG IV SCH ×3 (00:33→13:04)
[2018-04-13 05:58] LABS: Calcium 9.3 mg/dL (8.4-10.2)
[2018-04-13] MEDS: HALFPRIN EC PO SCH (09:14)
[2018-04-13] MEDS: TOBRADEX OS SCH (09:17)
--- NOTE | 2018-04-13 09:20 | Progress Note ---
Assessment and Plan 1. Acute kidney injury: VAZQUEZ superimposed on CKD stage 3. Renal function is better. CKD stage 3 likely secondary to diabetic nephropathy. Monitor renal function. 2. FEN: Edema has improved. Monitor. 3. Sepsis: Secondary to LE cellulitis. 4. Uncontrolled HTN: BP is better. Monitor. 5. DM-2. F/u with me in 2 weeks. Subjective Date of service: 04/13/18 Interval history: Patient was seen and examined at the bedside. Objective - Vital Signs Vital signs: Vital Signs - 12hr 04/12/18 04/12/18 04/13/18 22:00 23:48 00:28 Temperature 99.3 F Pulse Rate 80 76 Pulse Rate [ 80 Left Radial] Respiratory 18 18 Rate Blood Pressure 157/71 163/72 O2 Sat by Pulse 96 96 Oximetry 04/13/18 04/13/18 06:03 06:12 Temperature 98.3 F Pulse Rate 74 70 Pulse Rate [ Left Radial] Respiratory 20 Rate Blood Pressure 161/67 150/80 O2 Sat by Pulse 95 Oximetry - General Appearance General appearance: well-developed, well-nourished, appears stated age, obese, other (not in distress) EENT: ATNC, PERRL, sclerotic cornea (right eye) Neck: supple Respiratory: Present: Clear to Ascultation Cardiology: regular, S1S2, no murmurs Gastrointestinal: normoactive bowel sounds, no tenderness, no distended, obese Integumentary: other (both leg covered with dressing) Neurologic: no asterixis, confused, disoriented, other (right eye blind, 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) Musculoskeletal: other (no edema) - Lab 04/08/18 05:29 04/13/18 04:58 Most recent lab results Calcium 9.3 mg/dL (8.4-10.2) 04/13/18 04:58 Phosphorus 3.30 mg/dL (2.5-4.5) 04/08/18 05:29 Magnesium 2.10 mg/dL (1.7-2.3) 04/08/18 05:29 Medications & Allergies - Medications Allergies/Adverse Reactions: Allergies No Known Allergies Allergy (Verified 09/16/17 13:48) Home Medications: Home Medications Medication Instructions Recorded Confirmed Last Taken Type Brimonidine Tartrate 0.2% 1 drop OS BID 06/21/14 04/09/18 Unknown History Latanoprost 0.005% 1 drop OS DAILY 06/21/14 04/09/18 Unknown History Tobradex 1 drop OS DAILY 06/21/14 04/09/18 Unknown History Torsemide [Demadex] 20 mg PO QID 08/26/15 04/09/18 Unknown History Insulin Glulisine [Apidra] 0 units SUB-Q AC units 08/30/15 04/09/18 Unknown Rx Acetaminophen [Tylenol Arthritis] 650 mg PO Q8H #30 tablet.er 09/16/17 04/09/18 Unknown Rx Aspirin EC [Aspirin Enteric Coated 81 mg PO QDAY #30 tablet.dr 04/11/18 Unknown Rx TAB] Betoptic S 0.25% 1 drop OS BID 30 Days 04/11/18 Unknown Rx Cephalexin [Keflex] 500 mg PO BID #14 capsule 04/11/18 Unknown Rx Chlorthalidone [Thalitone] 25 mg PO QDAY #30 tablet 04/11/18 Unknown Rx Cyclopentolate 1% 1 drop OS BID 30 Days 04/11/18 Unknown Rx Ergocalciferol [Vitamin D2] 1 cap PO QMONTH 30 Days capsule 04/11/18 Unknown Rx Gabapentin 300 mg PO TID #90 04/11/18 Unknown Rx Insulin Glargine [Lantus VIAL] 30 units SUB-Q QHS 30 Days units 04/11/18 Unknown Rx Insulin Glargine [Lantus VIAL] 70 units SUB-Q QHS #10 ml 04/11/18 Unknown Rx Insulin Regular, Human [HumuLIN R] 0 units SUB-Q AC units 04/11/18 Unknown Rx Insulin Regular, Human [HumuLIN R] 0 units SUB-Q QHS units 04/11/18 Unknown Rx Labetalol [Normodyne TAB] 400 mg PO Q8HR #90 tablet 04/11/18 Unknown Rx Meclizine [Antivert] 25 mg PO Q8H PRN #14 tablet 04/11/18 Unknown Rx NIFEdipine XL [Procardia Xl] 90 mg PO BID #60 tablet 04/11/18 Unknown Rx Pravastatin [Pravachol] 20 mg PO QHS tablet 04/11/18 Unknown Rx hydrALAZINE [Apresoline TAB] 150 mg PO TID #90 tab 04/11/18 Unknown Rx Active Medications: Generic Name Dose Route Start Last Admin Trade Name Freq PRN Reason Stop Dose Admin Acetaminophen 650 mg 04/07/18 00:56 04/08/18 14:56 Tylenol PO 650 mg Q4H PRN Administration Fever >101 Aspirin 81 mg 04/07/18 10:00 04/13/18 09:14 Halfprin Ec PO 81 mg QDAY VICKI Administration Cyclopentolate HCl 1 drops 04/07/18 10:00 04/13/18 09:15 Cyclogyl OS 1 drops BID VICKI Administration Dextrose 50 ml 04/07/18 01:02 D50w (25gm) Syringe IV PRN PRN Hypoglycemia Ergocalciferol 50,000 unit 04/07/18 10:00 04/07/18 10:16 Vitamin D2 PO 50,000 unit QMONTH VICKI Administration Gabapentin 300 mg 04/07/18 08:00 04/13/18 09:14 Neurontin PO 300 mg TID VICKI Administration Heparin Sodium (Porcine) 5,000 unit 04/07/18 06:00 04/13/18 06:13 Heparin SUB-Q 5,000 unit Q8HR VICKI Administration Hydralazine HCl 150 mg 04/07/18 08:00 04/13/18 09:13 Apresoline PO 150 mg TID VICKI Administration Piperacillin Sod/Tazobactam Sod 2.25 gm in 50 mls @ 100 mls/hr 04/07/18 12:00 04/13/18 06:09 Zosyn/Ns 2.25 Gm/50ml IV 100 mls/hr Q6HR VICKI Administration Insulin Glargine 35 units 04/08/18 22:00 04/13/18 00:29 Lantus SUB-Q 35 units QHS VICKI Administration Insulin Human Regular 0 units 04/07/18 07:30 04/13/18 08:12 Humulin R SUB-Q Not Given [facility] Protocol Insulin Human Regular 0 units 04/07/18 22:00 04/13/18 00:30 Humulin R SUB-Q 1 units QHS VICKI Administration Protocol Labetalol HCl 400 mg 04/07/18 14:00 04/13/18 06:12 Normodyne PO 400 mg Q8HR VICKI Administration Latanoprost 1 drops 04/07/18 18:00 04/12/18 17:21 Latanoprost 0.005% OS 1 drops QPM VICKI Administration Meclizine HCl 25 mg 04/07/18 00:56 Antivert PO Q8H PRN Vertigo Miscellaneous Medication 1 drop 04/08/18 22:00 04/13/18 09:16 Betoptic S 0.25% OS 1 drop BID VICKI Administration Morphine Sulfate 2 mg 04/07/18 00:54 04/11/18 16:32 Morphine IV 2 mg Q4H PRN Administration Pain, Moderate (4-6) Nifedipine 90 mg 04/07/18 22:00 04/13/18 09:13 Procardia Xl PO 90 mg BID VICKI Administration Ondansetron HCl 4 mg 04/07/18 00:54 04/07/18 03:02 Zofran IV 4 mg Q8H PRN Administration Nausea And Vomiting Pravastatin Sodium 20 mg 04/07/18 22:00 04/13/18 00:25 Pravachol PO 20 mg QHS VICKI Administration Tobramycin/Dexamethasone 1 drops 04/07/18 10:00 04/13/18 09:17 Tobradex OS 1 drops DAILY VICKI Administration
[2018-04-13 17:12] VITALS: BP 157/72
== END 2018-04-13 17:30 | disposition home health service (06) | DRG 871 ==
LOC: ED 20:05 → 3A 04-07 00:43
PROVIDERS: ADMIT Internal Medicine; ATTEND Hospitalist
DX: A41.9 Sepsis, unspecified organism (principal); N17.0 Acute kidney failure with tubular necrosis; I16.0 Hypertensive urgency; L03.115 Cellulitis of right lower limb; N18.3 Chronic kidney disease, stage 3 (moderate); M19.90 Unspecified osteoarthritis, unspecified site; I13.0 Hypertensive heart and chronic kidney disease with heart failure and stage 1 through stage 4 chronic kidney disease, or unspecified chronic kidney disease; L03.114 Cellulitis of left upper limb; Z90.49 Acquired absence of other specified parts of digestive tract; E11.22 Type 2 diabetes mellitus with diabetic chronic kidney disease
CPT/HCPCS: 36415; 76770; 80048; 80053; 80202; 82140; 82962; 83735; 83880; 83970; 84100; 85025; 87040; 90686; 93005; 93010; 96365; 96375; G0378; A9270-GY; J0360; J1644; J1815; J1940; J2270; J2405; J2543; J3370; J7040; J7050